=== PATIENT | female | born 1970 | race Caucasian/White ===

== ENCOUNTER → 2020-01-18 15:43 | Outpatient (BNVA) | payer BC, SELFPAY | PROVIDERS: Family Provider Nurse Practitioner Family; PCP Nurse Practitioner Family; Visit Provider Nurse Practitioner Family | DX: M79.672 Pain in left foot (principal) | CPT/HCPCS: 73630 ==

== ENCOUNTER → 2020-03-16 08:46 | Outpatient (BNVA) | payer BC, SELFPAY | PROVIDERS: Family Provider Nurse Practitioner Family; PCP Nurse Practitioner Family; Referring Provider Nurse Practitioner Family; Visit Provider Podiatrist Foot & Ankle Surgery | DX: S92.512A Displaced fracture of proximal phalanx of left lesser toe(s), initial encounter for closed fracture (principal) | CPT/HCPCS: 73630 ==

== ENCOUNTER 2020-04-14 08:26 | Outpatient (CLI) | payer BC, SELFPAY ==
--- NOTE | 2020-04-14 08:44 | CT_ITS ---
WS: [id number] CT CHEST WITHOUT INTRAVENOUS CONTRAST HISTORY: SOLITARY PULMONARY NODULE TECHNIQUE: Contiguous 5 mm axial imaging performed on the thorax. Coronal and sagittal reformats are submitted. All CT scans at [facility] use at least one of these dose optimization techniq ues: automated exposure control; mA and/or kV adjustment per patient size (includes targeted exams wh ere dose is matched to clinical indication); or iterative reconstruction. CONTRAST: None DLP: 902.14 mGy-cm. COMPARISON: 09/06/2019, 01/25/2019 and 11/29/2016 Lungs and central airway: Recently described LEFT lower lobe nodule has not changed significantly in size. Nodule now measures 5 mm on image 36 of series 3. There is been no progression since 09/06/2019 . There are additional calcified nodules and noncalcified nodules bilaterally. These additional nodul es have been stable since 11/29/2016. Pleura: Normal. No pleural effusion. Heart and pericardium: Normal size heart. No pericardial effusion. Mediastinum and francesca: Very large dense calcified RIGHT paratracheal lymph nodes. No enlarging or new lymph nodes. Vessels: Normal size aortic and pulmonary artery. No coronary artery calcifications. Chest wall and lower neck: No soft tissue masses. Upper abdomen: Prior cholecystectomy. Splenic granulomata. No adrenal mass. Osseous structures: No destructive process. CT/CT chest wo con [id number] IMPRESSION: 1. Slight decrease in size of the new LEFT lower lobe pulmonary nodule describ ed on 09/06/2019 and now measuring 5 mm diameter. This nodule was also probably present on 11/29/2016. No additional workup necessary. 2. Long-term stability of benign noncalcified and calcified pulmonary nodules. 3. Benign large RIGHT paratracheal calcified lymph node. 4. Mild emphysema. 5. Prior cholecystectomy.
== END 2020-04-14 08:27 | disposition home or self-care (01) ==
LOC: RADWPI 08:29
PROVIDERS: Family Provider Nurse Practitioner Family; PCP Nurse Practitioner Family; Visit Provider Internal Medicine Pulmonary Disease
DX: R91.1 Solitary pulmonary nodule (principal); R91.8 Other nonspecific abnormal finding of lung field; J43.9 Emphysema, unspecified; Z90.49 Acquired absence of other specified parts of digestive tract
CPT/HCPCS: 71250

== ENCOUNTER → 2021-02-12 15:12 | Outpatient (BNVA) | payer BC, SELFPAY | PROVIDERS: Family Provider Nurse Practitioner Family; PCP Nurse Practitioner Family; Visit Provider Nurse Practitioner Family | DX: S46.912A Strain of unspecified muscle, fascia and tendon at shoulder and upper arm level, left arm, initial encounter (principal); M62.838 Other muscle spasm; X58.XXXA Exposure to other specified factors, initial encounter | CPT/HCPCS: 73030 ==

== ENCOUNTER → 2021-02-13 17:09 | Outpatient (BNVA) | payer BC, SELFPAY | PROVIDERS: Family Provider Nurse Practitioner Family; PCP Nurse Practitioner Family; Visit Provider Nurse Practitioner Family | DX: F41.9 Anxiety disorder, unspecified (principal); F32.9 Major depressive disorder, single episode, unspecified; I10 Essential (primary) hypertension; F41.8 Other specified anxiety disorders; M62.838 Other muscle spasm; S46.912A Strain of unspecified muscle, fascia and tendon at shoulder and upper arm level, left arm, initial encounter; Z13.6 Encounter for screening for cardiovascular disorders; E55.9 Vitamin D deficiency, unspecified; Z79.899 Other long term (current) drug therapy | CPT/HCPCS: 36415; 80053; 80061; 81003; 82306; 83036; 84443; 85025 ==

== ENCOUNTER 2021-06-01 08:08 | Inpatient (IN) | payer BC, SELFPAY ==
[2021-06-01 08:13] VITALS: BP 117/78; PULSE 94; RESP 16; TEMP 36.7; O2SAT 95; BMI 30.4
--- NOTE | 2021-06-01 08:13 | CT_ITS ---
WS: [id number] CT ABDOMEN AND PELVIS WITH CONTRAST HISTORY: Constipation with bright red blood. TECHNIQUE: Imaging performed of the abdomen and pelvis with IV contrast. Single phase imaging of the abdomen. Coronal and sagittal reformats are submitted. All CT scans at [facility] use at least one of these dose optimization techniques: automated exposure control; mA and/or kV adjustment per patient size (includes targeted exams where dose is matched to clinical indication); or iterativ e reconstruction. IV CONTRAST: Omnipaque 300; 95 mL IV. Oral contrast: No DLP: 1732.61 mGy.cm COMPARISON: 02/13/2009 Lower thorax: Stable nodules in the LEFT lower lung has been previously described. Normal heart size. Moderate size hiatal hernia. Liver/biliary system: Liver is elongated which is probably a Willa's lobe. No mass identified. There is a obstructive thrombosis in the posterior RIGHT portal vein. Thrombus begins in the proximal por heidi vein and extends to the periphery of the liver. Main portal vein is widely patent. Suspect there is also small amount of thrombus in the more anterior segment of the RIGHT portal vein which is nonoc clusive. No liver infarct. Main portal vein appears patent. No thrombus at the portal splenic conflue nce. Gallbladder: Status post cholecystectomy. Pancreas: Normal size pancreas and pancreatic duct. No adjacent inflammation. Spleen: Normal size with granulomata. Adrenal glands: Normal. Right kidney: Mild heterogeneity within the parenchyma with no adjacent inflammation or obstruction. May be phase of injection. Left kidney: Normal. Aorta: Mild atherosclerosis with no aneurysm. Lymphadenopathy: None. Free fluid: None. GI tract: Normal appendix. Mild constipation. Circumferential mucosal thickening and edema within the descending and sigmoid colon. No significant diverticular disease. Abdominal wall: Unremarkable abdominal wall. No hernia. Pelvis: Prior hysterectomy. No free fluid. Urinary bladder is well distended. Calcification in the LE FT ovary measures 10 mm. Bones: L5 anterolisthesis by 5 mm and bilateral pars defects. CT/CT abdomen pelvis w con* [id number] IMPRESSION: 1. Acute RIGHT portal vein thrombosis with no liver infarct at this time. No e xtension to this splenic portal confluence noted. 2. Mucosal edema involving the descending and sigmoid colon. No perforation. N o convincing evidence for ischemia. There are no significant diverticula identi fied. 3. Consider portal vein thrombosis may be septic thrombophlebitis from the acu te colitis or inflammatory bowel disease. Consider also hypercoagulable state. Portal vein thrombosis can be seen with hepatocellular carcinoma/pancreatitis a nd cirrhosis. Notified Baron Cochran DO at 06/01/2021 9:32 AM.
[2021-06-01 08:20] VITALS: BP 127/79; PULSE 96; O2SAT 99
[2021-06-01] MEDS: sodium chloride 0.9% 1,000 ML 999 ML IV (08:38)
[2021-06-01 08:51] LABS: Basophils # 0.1 10^3/uL (0.0-0.1); Basophils % 0.5 %; Eosinophils # 0.1 10^3/uL (0.0-0.8); Hematocrit 44.3 % (37.0-47.0); Hemoglobin 14.5 g/dL (11.5-15.3); Lymphocytes # 2.1 10^3/uL (0.8-4.8); Lymphocytes % 16.2 %; Mean Corpuscular HGB Conc 32.7 g/dL (30.0-36.0); Mean Corpuscular Hemoglobin 29.2 pg (28.0-34.0); Mean Corpuscular Volume 89.1 fL (81-99); Mean Platelet Volume 10.5 fL (7.4-10.4); Monocytes # 0.7 10^3/uL (0.2-0.9); Monocytes % 5.7 %; Neutrophils # 9.68 10^3/uL (1.8-7.7); Neutrophils % 76.2 %; Nucleated Red Blood Cells % 0 %; Platelet Count 329 10^3/cmm (130-400); Red Blood Count 4.97 10^6/uL (4.1-5.3); Red Cell Distribution Width 13.1 % (12.1-15.1); White Blood Count 12.7 10^3/uL (4.0-10.0)
[2021-06-01 09:07] LABS: Lactic Sepsis W/Reflex 1.4 mmol/L (0.5-2.2)
[2021-06-01 09:08] LABS: Alanine Aminotransferase 11 U/L (0-33); Albumin Level 4.3 g/dL (3.5-5.2); Alkaline Phosphatase 142 IU/L (35-105); Anion Gap 16.1 (5-19); Aspartate Amino Transferase 11 U/L (0-32); Blood Urea Nitrogen 18 mg/dL (6-20); Calcium 9.2 mg/dL (8.5-10.5); Carbon Dioxide 26 mmol/L (22-29); Chloride 98 mmol/L (98-107); Globulin 2.9 g/dL (1.3-4.6); Glucose 105 mg/dL (65-115); Lipase 22 U/L (13-60); Osmolality Calculated 284 mOsm/kg (285-295); Potassium 4.1 mmol/L (3.5-5.1); Sodium 136 mmol/L (136-145); Total Bilirubin 0.3 mg/dL (0.15-1.2); Total Protein 7.2 g/dL (6.6-8.7)
--- NOTE | 2021-06-01 09:21 | ED_ITS ---
HPI - Abdominal Pain General: Chief Complaint: Abdominal Pain Stated Complaint: bowel problems S/P surgery Time Seen by Provider: 06/01/21 08:11 History of Present Illness: HPI narrative: 50-year-old female presents to the emergency room with complaints of infraumbilical abdominal pain that began overnight. She relates most of it to being constipated. She has been very constipated she taken something for it and had some rectal bleeding after having a large bowel movement. She is continue to try to get something to relieve constipation has had a little more bleeding from the rectum. She not previously had a colonoscopy no vomiting with any of these episodes. No fever sweats chills no dysuria urgency or frequency. MD elicited complaint: abdominal pain Pertinent past history: constipation Onset (ago): day(s) Pain Consistency: intermittent Location: Suprapubic Severity: mild Quality: cramping Radiation: none Migration to: no migration Exacerbating factors: bowel movement Relieving factors: nothing Associated Symptoms: Reports bloating, change in bowel habits, change in stool character and hematochezia; Denies anorexia, belching, chills, coffee ground emesis, constipation, GI cramping, diarrhea, dyspepsia, dysuria, excessive flatus, fever(s), heartburn, hematuria, hematemesis, fecal incontinence, loose stools, melena, nausea, poor appetite, syncope and vomiting Review of Systems Const: Denies: fever(s) or chills ENMT: Denies: throat pain, ear or mastoid pain, nasal discharge or nasal congestion Card: Denies: syncope Resp: Denies: dyspnea, productive cough or non-productive cough GI: Reports: bloating, change in bowel habits, change in stool character and hematochezia; Denies: nausea, vomiting, hematemesis, coffee ground emesis, heartburn, diarrhea, constipation, GI cramping, belching, excessive flatus, fecal incontinence or melena : Denies: dysuria or hematuria Skin/Breast: Denies: rash or pruritus PFS ED PFSH: Medical History Allergic sinusitis Anxiety and depression Breast cancer screening by mammogram COPD (chronic obstructive pulmonary disease) Essential hypertension H/O abnormal mammogram Hypertension screen Left shoulder strain Medication management Multiple lung nodules on CT CT 08/2019 OPINION:?? 1.? Enlarging left lower lobe nodule as described above and based on apparent patient risk factor, suggest CT CT follow-up in 3-6 months.? 2.? Stable lingular and additional left lower lobe nodules since 01/25/2019.? 3.? Chronic emphysema.? 4.? Remote granulomatous disease.? 5.? Prior cholecystectomy.? Muscle spasm Numbness and tingling in left arm Vitamin D deficiency Surgical History S/P cholecystectomy Social History Smoking and tobacco status: current every day smoker Second hand smoke exposure: No Smoking risk assessment/counseling performed?: No Alcohol intake: never Desire information about alcohol rehabilitation?: No Counseling given: No Desire information about substance/drug rehabilitation?: No Counseling given: No Physical Exam Const: COMMON NORMALS: no acute distress GENERAL APPEARANCE: cooperative and comfortable ORIENTATION/CONSCIOUSNESS: Yes awake, Yes oriented to person, Yes oriented to place and Yes oriented to time HENMT: COMMON NORMALS: normocephalic, atraumatic and hearing grossly normal b ilaterally HEAD & SCALP: normocephalic and atraumatic Neck/C-Spine: COMMON NORMALS: no JVD Resp: COMMON NORMALS: normal respiratory effort, No retractions, No use of accessory muscles and clear to auscultation bilaterally AUSCULTATION: clear to auscultation bilaterally Cardio: COMMON NORMALS: no JVD, regular rate, regular rhythm and No murmurs present (Cardio) RATE: regular rate RHYTHM: regular rhythm GI: COMMON NORMALS: No hepatosplenomegaly present AUSCULTATION: Yes normoactive bowel sounds PALPATION: Yes Tenderness to palpation present (GI) (infraumbilical), No Guarding due to palpation present (GI) and Yes No hepatosplenomegaly present Extremity: COMMON NORMALS: normal to inspection, capillary refill normal, no clubbing, cyanosis or edema, no calf tenderness and no pedal edema Neuro: SENSORIUM/ORIENTATION: Yes oriented to person, Yes oriented to place and Yes oriented to time Skin: COMMON NORMALS: no rashes or lesions noted GENERAL SKIN EXAM: no rashes or lesions noted Course Vital Signs: Vital signs: Vital Signs Temperature 98.0 F 06/01/21 08:13 Pulse Rate 96 06/01/21 08:20 Respiratory Rate 16 06/01/21 08:13 Blood Pressure 127/79 06/01/21 08:20 Pulse Oximetry 99 06/01/21 08:20 MDM - Abdominal Pain MDM Narrative: Medical decision making narrative: Colitis of portal vein thrombosis discussed Dr. Rosario from Dr. James will start her on heparin Cipro and Flagyl and observe for bleeding GI rest IV fluid support pain control and antiemetics. Dr. Rosario to consult. Lab Data: Labs: Lab Results 06/01/21 06/01/21 06/01/21 Range/Units 08:42 08:42 08:42 WBC 12.7 H (4.0-10.0) 10^3/ uL RBC 4.97 (4.1-5.3) 10^6/u L Hgb 14.5 (11.5-15.3) g/dL Hct 44.3 (37.0-47.0) % MCV 89.1 (81-99) fL MCH 29.2 (28.0-34.0) pg MCHC 32.7 (30.0-36.0) g/dL RDW 13.1 (12.1-15.1) % Plt Count 329 (130-400) 10^3/c mm MPV 10.5 H (7.4-10.4) fL Neut % (Auto) 76.2 % Lymph % (Auto) 16.2 % Carroll % (Auto) 5.7 % Eos % (Auto) 1.0 % Baso % (Auto) 0.5 % Neut # (Auto) 9.68 H (1.8-7.7) 10^3/u L Lymph # (Auto) 2.1 (0.8-4.8) 10^3/u L Carroll # (Auto) 0.7 (0.2-0.9) 10^3/u L Eos # (Auto) 0.1 (0.0-0.8) 10^3/u L Baso # (Auto) 0.1 (0.0-0.1) 10^3/u L Nucleated RBC % (a uto) 0 % Nucleated RBCs # 0.0 /100WBC Sodium 136 (136-145) mmol/L Potassium 4.1 (3.5-5.1) mmol/L Chloride 98 (98-107) mmol/L Carbon Dioxide 26 (22-29) mmol/L Anion Gap 16.1 (5-19) BUN 18 (6-20) mg/dL Creatinine 0.9 (0.5-0.9) mg/dL GFR Calculation 66.0 L (90-130) mL/min Glucose 105 (65-115) mg/dL Calculated Osmolal ity 284 L (285-295) mOsm/k g Lactic Acid 1.4 (0.5-2.2) mmol/L Calcium 9.2 (8.5-10.5) mg/dL Total Bilirubin 0.3 (0.15-1.2) mg/dL AST 11 (0-32) U/L ALT 11 (0-33) U/L Alkaline Phosphata se 142 H (35-105) IU/L Total Protein 7.2 (6.6-8.7) g/dL Albumin 4.3 (3.5-5.2) g/dL Globulin 2.9 (1.3-4.6) g/dL Lipase 22 (13-60) U/L Discharge Plan Discharge Patient Disposition: Admitted As Inpatient Clinical Impression: Colitis, Portal vein thrombosis Condition: Stable Coding Level of Care Code ED Splitting Machine Operator for Kimberly Fwd Exam Comprehensive
[2021-06-01] MEDS: ciprofloxacin 400 MG/200 ML PREMIX 200 MG IV (10:58)
--- NOTE | 2021-06-01 11:48 | P.HP_ITS ---
Providers/Chief Complaint Primary Care Provider: MOODY Mckinney Chief Complaint: bowel problems S/P surgery History of Present Illness Padmini Rothman is a 50 year old female who presents to the emergency department with complaints of abdominal discomfort. She reports late Friday night she started having some abdominal discomfort underneath her umbilicus. She thought she was constipated, as she had a hard stool and then some subsequent bleeding. She proceeded to give herself suppositories/enemas and Metamucil and had some watery diarrhea. The pain persisted, as did a slight amount of blood on occasion. She has not had no fever or chills. The pain is somewhat better than it was on Friday. She has had no vomiting. She denies any prior history of clotting disorder. While in the emergency department she was diagnosed with a portal vein thrombosis, and concern for colitis. She received ciprofloxacin, Flagyl, IV fluids, surgical consultation. A heparin drip was also initiated. Patient denies any history of Covid, exposure to Covid or vaccination for Covid. Review of Systems General: Reports: 10 or more systems reviewed and unremarkable except in HPI and below Const: Denies: fever(s) or chills Eyes: Denies: change in vision ENMT: Denies: throat pain Card: Denies: chest pain Resp: Denies: dyspnea GI: Reports: abdominal pain and hematochezia; Denies: vomiting : Denies: flank pain Musc: Denies: neck pain Skin/Breast: Denies: rash Neuro: Denies: headache(s) Psych: Reports: anxiety Endo: Denies: polyuria Aakash/Lymph: Denies: easy bruising All/Imm: Denies: urticaria Medications/Allergies Home Medications Medication Instructions Recorded Confirmed Last Taken Type fluticasone propionate 50 1 spray INTRANASAL DAILY PRN 30 02/12/21 06/01/21 Unknown Rx mcg/actuation nasal Days #15.8 ml spray,suspension hydroxyzine HCl 25 mg tablet 25 mg PO TID PRN #90 tab 02/12/21 06/01/21 Unknown Rx furosemide 80 mg tablet See Rx Instructions .ROUTE 05/02/21 06/01/21 Unknown Rx .COMPLEX #30 tab phentermine 37.5 mg tablet 37.5 mg PO DAILY 30 Days #30 tab 05/02/21 06/01/21 05/30/21 Rx bupropion HCl 200 mg PO BID 06/01/21 06/01/21 06/01/21 History cyclobenzaprine 10 mg PO BEDTIME PRN 06/01/21 06/01/21 Unknown History lisinopril 20 mg PO DAILY 06/01/21 06/01/21 06/01/21 History Allergies Allergy/AdvReac Type Severity Reaction Status Date / Time celecoxib [From Celebrex] Allergy unknown Verified 05/02/21 14:14 tramadol Allergy unknown Verified 05/02/21 14:14 PFSH Acute PFSH: Medical History (Updated 06/01/21 @ 13:49 by Velasquez Falcon MD) Allergic sinusitis Anxiety and depression Breast cancer screening by mammogram COPD (chronic obstructive pulmonary disease) Essential hypertension H/O abnormal mammogram Hypertension screen Left shoulder strain Medication management Multiple lung nodules on CT CT 08/2019 OPINION:?? 1.? Enlarging left lower lobe nodule as described above and based on apparent patient risk factor, suggest CT CT follow-up in 3-6 months.? 2.? Stable lingular and additional left lower lobe nodules since 01/25/2019.? 3.? Chronic emphysema.? 4.? Remote granulomatous disease.? 5.? Prior cholecystectomy.? Muscle spasm Numbness and tingling in left arm Obesity Vitamin D deficiency Surgical History (Updated 06/01/21 @ 13:41 by Velasquez Falcon MD) History of hysterectomy History of knee surgery S/P cholecystectomy Family History (Updated 06/01/21 @ 13:42 by Velasquez Falcon MD) Other CAD (coronary artery disease) Diabetes Social History (Updated 06/01/21 @ 13:42 by Velasquez Falcon MD) Smoking and tobacco status: current every day smoker Second hand smoke exposure: No Smoking risk assessment/counseling performed?: No Alcohol intake: current Alcohol intake frequency: 0-2 Drinks per Day Desire information about alcohol rehabilitation?: No Counseling given: No Desire information about substance/drug rehabilitation?: No Counseling given: No Vitals/I&O/Wt Last Vital Signs Temp 98.0 F 06/01/21 08:13 Pulse 96 06/01/21 08:20 Resp 16 06/01/21 08:13 BP 127/79 06/01/21 08:20 Pulse Ox 99 06/01/21 08:20 Weight last 48 hrs Weight 83.007 kg Physical Exam Narrative: EXAM NARRATIVE: General exam is a white female, complaining of abdominal discomfort HEENT: Pupils equally round. Oropharynx clear. Neck is supple no lymphadenopathy or thyromegaly Cardiovascular regular rate and rhythm without murmur Lungs clear no wheezing or crackles Abdomen demonstrates tenderness below her umbilicus bilaterally. No significant rebound is deferred Extremities no cyanosis clubbing or edema, cap refill brisk Skin intact, no rash Neuro no focal deficits Data : 06/01/21 08:42 06/01/21 08:42 Other data: Abdominal pelvis CT demonstrates right portal vein thrombosis with no liver infarct. Mucosal edema is noted descending and sigmoid: With no evidence for ischemia. Lactic acid 1.4, calcium 9.2, LFTs normal with exception of alk phos of 142. Lipase is 22 A&P Assessment and plan (1) Portal vein thrombosis: Initiate heparin drip Heparin being used instead of Lovenox secondary to patient's report of occasional blood in her stool. Should this increase greatly this will be a safer option. Should it not then other anticoagulation choices can be considered in the near future Work-up for thrombosis with multiple studies Check chest x-ray If any significant increase in discomfort would consider repeating lactate Status: Acute (2) Abdominal pain: Check urinalysis Continue Cipro and Flagyl for concern of colitis although changes could be secondary to suppositories and enemas patient gave in response for concern of constipation Status: Acute (3) Tobacco dependency: Encourage abstinence Status: Acute (4) Essential hypertension: Continue home medications Status: Acute Additional A&P Information Multiple other medical problems as outlined past medical history Full code Heparin will suffice for DVT prophylaxis. Attestations Medical Necessity Statement*: Will need greater than 2 midnight stay for evaluation of abdominal pain with portal vein thrombosis. Time Spent in Patient Care: Greater than 35 minutes Coding Level of Care Code Acute Offset Printer for Chg Fwd Diagnoses Portal vein thrombosis I81 Abdominal pain R10.9 Tobacco dependency F17.200 Essential hypertension I10
[2021-06-01] MEDS: heparin 5,000 unit/mL INJ 1 mL 4000 UNIT IVP (12:50)
[2021-06-01] MEDS: metroNIDAZOLE IV 500 MG/100 ML PREMIX 100 MG IV (12:54)
--- NOTE | 2021-06-01 13:43 | XR_ITS ---
WS: [id number] Portable AP upright chest, 06/01/2021 Clinical Data: portal vein thrombosis Comparison: None. Findings: No nodules, masses or effusions are seen. The heart is normal. The pulmonary vascularity is not increased. No pneumonia or pneumothorax is seen. There is a 5.1 cm calcified right tracheobronch ial lymph node. XR/XR chest 1V portable [id number] Impression: Negative chest.
--- NOTE | 2021-06-01 13:46 | ECG_ITS ---
[facility] Test Date: 2021-06-01 Pat Name: Padmini Rothman Department: Room: Gender: Female [employer]: : 1970 Requested By: Velasquez Nguyen Order Number: [id number] Davian MD: Jong Starkey M.D. Measurements Intervals [place] Rate: 85 P: 54 SC: 173 QRS: 38 QRSD: 91 T: 42 QT: 364 QTc: 434 Interpretive Statements SINUS RHYTHM No previous ECG available for comparison Electronically Signed On 06-03-2021 17:24:44 CDT by Jong Starkey M.D. [email or web address]
[2021-06-01 13:58] LABS: INR 1.02 (0.8-1.2)
[2021-06-01 14:31] LABS: Partial Thromboplastin Time 166.1 SECONDS (23.9-36.7)
--- NOTE | 2021-06-01 17:56 | P.CONIM_ITS ---
Providers/Reason For Consult Consulting Physician/Specialty*: General Surgery Dr. Rosario Reason for Consult*: Portal vein thrombosis/colitis Primary Care Provider: MOODY Mckinney History of Present Illness History of Present Illness Padmini Rothman is a 50 year old female lady with generalized abdominal pain. Patient states the pain started in the lower abdomen 2 days ago. Initially she thought she was constipated and gave suppositories and enemas and subsequently had watery diarrhea. Patient had bleeding per rectum. She states the bleeding has slowed down. No similar episodes in the past. She has never had a colonoscopy before. Since admission she is feeling a lot better and her bleeding has slowed down. Review of Systems General: Reports: 10 or more systems reviewed and unremarkable except in HPI and below Meds/Allergies Home Medications and Allergies Home Medications Medication Instructions Recorded Confirmed Last Taken Type fluticasone propionate 50 1 spray INTRANASAL DAILY PRN 30 02/12/21 06/01/21 Unknown Rx mcg/actuation nasal Days #15.8 ml spray,suspension hydroxyzine HCl 25 mg tablet 25 mg PO TID PRN #90 tab 02/12/21 06/01/21 Unknown Rx furosemide 80 mg tablet See Rx Instructions .ROUTE 05/02/21 06/01/21 Unknown Rx .COMPLEX #30 tab phentermine 37.5 mg tablet 37.5 mg PO DAILY 30 Days #30 tab 05/02/21 06/01/21 05/30/21 Rx bupropion HCl 200 mg PO BID 06/01/21 06/01/21 06/01/21 History cyclobenzaprine 10 mg PO BEDTIME PRN 06/01/21 06/01/21 Unknown History lisinopril 20 mg PO DAILY 06/01/21 06/01/21 06/01/21 History Allergies Allergy/AdvReac Type Severity Reaction Status Date / Time celecoxib [From Celebrex] Allergy unknown Verified 05/02/21 14:14 tramadol Allergy unknown Verified 05/02/21 14:14 PFSH Acute PFSH: Medical History Allergic sinusitis Anxiety and depression COPD (chronic obstructive pulmonary disease) Essential hypertension Left shoulder strain Vitamin D deficiency Surgical History History of hysterectomy History of knee surgery S/P cholecystectomy Family History Other CAD (coronary artery disease) Diabetes Social History Smoking and tobacco status: current every day smoker Second hand smoke exposure: No Smoking risk assessment/counseling performed?: No Alcohol intake: current Alcohol intake frequency: 0-2 Drinks per Day Desire information about alcohol rehabilitation?: No Counseling given: No Desire information about substance/drug rehabilitation?: No Counseling given: No Vitals/I&O/Wt Last Vital Signs Temp 98.0 F 06/01/21 08:13 Pulse 96 06/01/21 08:20 Resp 16 06/01/21 08:13 BP 127/79 06/01/21 08:20 Pulse Ox 99 06/01/21 08:20 Weight last 48 hrs Weight 183 lb Physical Exam Narrative: EXAM NARRATIVE: HEENT: Normocephalic Eye: Sclera /conjunctiva normal Abdomen: Soft to palpation nontender, nondistended Neurological: Oriented to place person and time Skin: Intact, no lesions appreciated on gross exam Data Micro: Micro: Microbiology 06/01/21 14:21 Blood Culture - Pr eliminary Blood SPECIMEN [facility] 06/01/21 14:10 Blood Culture - Pr eliminary Blood SPECIMEN [facility] A&P Assessment and plan (1) Colitis: CT abdomen pelvis revealed colitis involving the descending and sigmoid colon. No evidence of peritonitis on physical exam. Continue IV Cipro and Flagyl Stool cultures Status: Acute (2) Portal vein thrombosis: CT abdomen pelvis showed right portal vein thrombosis without evidence of ischemia most likely secondary to colitis. Patient does not have any history of clotting disorders in the past. WBC is 12.7 and lactate is normal Continue heparin drip discussed with the patient about risk of ischemia and need for surgical intervention if that were to occur but at this point we will continue with medical therapy Status: Acute Consult Attestations Medical Necessity Statement: As per attending physician Coding Level of Care Code Acute Picture Framer for g Fwd Diagnoses Colitis K52.9 Portal vein thrombosis I81
[2021-06-01 19:36] LABS: Urine Appearance Clear (CLEAR); Urine Color Straw (Yellow); pH Urine 7 (5-7)
[2021-06-01 19:37] LABS: Add Urine Culture? No; Bacteria Urine TRACE /hpf; Bilirubin Urine Neg (Negative); Blood Urine Neg (Negative); Glucose Urine UA Norm (Normal); Ketones Urine Negative (Negative); Leukocyte Esterase Urine Negative (Negative); Nitrate Urine Negative (Negative); Protein Urine Neg (Negative); Specific Gravity, Urine 1.005 (1.005-1.030); Squamous Epithelial Cell Urine 0-4 /hpf (0-5); Urobilinogen Urine Norm (Negative)
[2021-06-01 20:20] VITALS: BP 130/78; PULSE 81; RESP 16; TEMP 36.8; O2SAT 99
[2021-06-01 21:06] VITALS: BP 158/89; PULSE 79; RESP 20; TEMP 36.4; O2SAT 99
[2021-06-01 21:10] VITALS: BP 130/78; PULSE 81; RESP 16; TEMP 36.9; O2SAT 99
[2021-06-01] MEDS: buPROPion SR (12 HR) 100 mg Tablet 200 MG PO (21:45)
[2021-06-01] MEDS: sodium chloride 0.9% 1,000 ML 75 ML IV (21:46)
[2021-06-01 21:47] VITALS: RESP 20
[2021-06-01] MEDS: morphine 4 mg/mL SDV 1 mL 2 MG IVP (21:47)
[2021-06-01] MEDS: heparin 5,000 unit/mL INJ 1 mL IV (21:48)
[2021-06-01] MEDS: heparin drip 25,000 UNIT/500 ML PREMIX 23.24 UNIT IV (21:49)
[2021-06-01 22:02] LABS: Partial Thromboplastin Time 27.6 SECONDS (23.9-36.7)
[2021-06-01] MEDS: heparin drip 25,000 UNIT/500 ML PREMIX 24 UNIT IV (22:13)
[2021-06-01] MEDS: HYDROcodone-acetaminophen 5-325 mg Tablet 1 TAB PO (22:53)
[2021-06-02] VITALS: BP 127/81; PULSE 78; RESP 18; TEMP 36.5; O2SAT 98
[2021-06-02 03:36] VITALS: BP 111/63; PULSE 79; RESP 18; TEMP 36.7; O2SAT 96
[2021-06-02] MEDS: HYDROcodone-acetaminophen 5-325 mg Tablet 1 TAB PO ×2 (03:37→19:19)
[2021-06-02 04:17] LABS: Basophils % 0.3 %; Eosinophils # 0.2 10^3/uL (0.0-0.8); Eosinophils % 2.1 %; Hematocrit 41.1 % (37.0-47.0); Hemoglobin 13.1 g/dL (11.5-15.3); Lymphocytes # 2.5 10^3/uL (0.8-4.8); Lymphocytes % 26.2 %; Mean Corpuscular HGB Conc 31.9 g/dL (30.0-36.0); Mean Corpuscular Volume 91.1 fL (81-99); Mean Platelet Volume 10.4 fL (7.4-10.4); Monocytes # 0.8 10^3/uL (0.2-0.9); Monocytes % 8.5 %; Neutrophils # 5.92 10^3/uL (1.8-7.7); Neutrophils % 62.5 %; Nucleated Red Blood Cells % 0 %; Platelet Count 243 10^3/cmm (130-400); Red Blood Count 4.51 10^6/uL (4.1-5.3); Red Cell Distribution Width 13.2 % (12.1-15.1); White Blood Count 9.5 10^3/uL (4.0-10.0)
[2021-06-02 04:37] LABS: Partial Thromboplastin Time 86.7 SECONDS (23.9-36.7)
[2021-06-02 04:40] LABS: Alanine Aminotransferase 10 U/L (0-33); Albumin Level 3.7 g/dL (3.5-5.2); Alkaline Phosphatase 121 IU/L (35-105); Aspartate Amino Transferase 11 U/L (0-32); Blood Urea Nitrogen 8 mg/dL (6-20); Calcium 8.6 mg/dL (8.5-10.5); Carbon Dioxide 25 mmol/L (22-29); Chloride 107 mmol/L (98-107); Creatinine Clr Calc Pharmacy 118.0329; Globulin 2.4 g/dL (1.3-4.6); Glomerular Filtration Rate 105.4 mL/min (90-130); Glucose 104 mg/dL (65-115); Osmolality Calculated 289 mOsm/kg (285-295); Sodium 140 mmol/L (136-145); Total Bilirubin 0.2 mg/dL (0.15-1.2); Total Protein 6.1 g/dL (6.6-8.7)
[2021-06-02 04:41] LABS: Lactate (Lactic Acid level) 0.9 mmol/L (0.5-2.2)
[2021-06-02 08:00] VITALS: BP 151/84; PULSE 78; RESP 18; TEMP 36.7; O2SAT 99
[2021-06-02] MEDS: lisinopril 20 mg Tablet PO (10:46)
[2021-06-02] MEDS: buPROPion SR (12 HR) 100 mg Tablet 200 MG PO ×2 (10:46→19:19)
[2021-06-02] MEDS: sodium chloride 0.9% 1,000 ML 75 ML IV (10:48)
[2021-06-02 12:00] VITALS: BP 136/82; PULSE 79; RESP 18; TEMP 36.6; O2SAT 98
[2021-06-02 12:23] LABS: Partial Thromboplastin Time 58.9 SECONDS (23.9-36.7)
--- NOTE | 2021-06-02 13:58 | PM.PN ---
Subjective Subjective: Interval history: 50-year-old female with a past medical history significant for anxiety, depression, chronic obstructive pulmonary disease, hypertension, pulmonary nodules, vitamin-D deficiency, morbid obesity who presented to the hospital with abdominal pain. Laboratory workup on arrival showed a WBC of 12.7, hemoglobin 14.5, hematocrit of 44.3 and platelet count of 329, sodium of 136, potassium 4.1, chloride 98, bicarb 26, BUN 18 and creatinine of 0.9. Lactic acid of 1.4, calcium IX 0.2, LFTs within normal limits and lipase of 22. Imaging studies included a CT abdomen pelvis which demonstrated the right portal vein thrombosis.Patient was started on IV heparin in addition to ciprofloxacin and Flagyl. Antibiotics were started due to colitis of descending and sigmoid colon. General surgery was consulted however no surgical plan was noted at this time. 06/02/2021 Patient was feeling much better. Noted mild abdominal discomfort however this had improved. No fever, chills, nausea vomiting. Medications: Reviewed: Yes Vitals/I&O/Wt Last Vital Signs Temp 97.8 F 06/02/21 12:00 Pulse 79 06/02/21 12:00 Resp 18 06/02/21 12:00 BP 136/82 06/02/21 12:00 Pulse Ox 98 06/02/21 12:00 06/01/21 06/02/21 06/02/21 22:59 06:59 14:59 Intake Total 1300 / 1300 186.8 / 1486.8 977.5 / 977.5 Output Total 0 / 0 Balance 1300 / 1300 186.8 / 1486.8 977.5 / 977.5 Weight last 48 hrs Weight 83.007 kg Physical Exam Narrative: EXAM NARRATIVE: General- Alert awake and oriented, no apparent distress HEENT -grossly unremarkable CVS- regular rate rhythm Chest- non labored respiration Abdomen- very mild tenderness to deep palpation in right side, no guarding Extremities- no lower extremity edema Data : 06/02/21 04:00 06/02/21 04:00 Micro: Microbiology 06/01/21 14:21 Blood Culture - Preliminary Blood SPECIMEN COLLECTED 06/01/21 14:10 Blood Culture - Preliminary Blood SPECIMEN COLLECTED A&P Assessment and plan (1) Colitis: General surgery consulted Ciprofloxacin Flagyl No surgical plan Pain control Status: Acute (2) Portal vein thrombosis: Continue IV heparin drip Coagulation workup as outpatient Monitor LFTs Bleeding precaution CBC daily Will likely transition to Eliquis versus Coumadin Status: Acute Attestations Medical Necessity Statement*: Will require further hospitalizationFor management of colitis on IV antibiotics Time Spent in Patient Care: Greater than 35 minutes (>than 50% of time spent in counselling and/or direct pt care on unit). Coding Level of Care Code Acute Geosciences Professor for Kimberly Gillilandd Diagnoses Colitis K52.9 Portal vein thrombosis I81
--- NOTE | 2021-06-02 14:06 | P.PN_ITS ---
Subjective Subjective: Interval history: Patient denies significant abdominal pain, no nausea or vomiting. No further BMs. She had severe pain last night but that has since resolved Vitals/I&O/Wt Last Vital Signs Temp 97.8 F 06/02/21 12:00 Pulse 79 06/02/21 12:00 Resp 18 06/02/21 12:00 BP 136/82 06/02/21 12:00 Pulse Ox 98 06/02/21 12:00 06/01/21 06/02/21 06/02/21 22:59 06:59 14:59 Intake Total 1300 / 1486.8 186.8 / 1486.8 977.5 / 977.5 Output Total 0 / 0 Balance 1300 / 1486.8 186.8 / 1486.8 977.5 / 977.5 Weight last 48 hrs Weight 183 lb Physical Exam Narrative: EXAM NARRATIVE: Abdomen: Soft, nondistended, nontender Data : 06/02/21 04:00 06/02/21 04:00 Micro: Microbiology 06/01/21 14:21 Blood Culture - Preliminary Blood SPECIMEN COLLECTED 06/01/21 14:10 Blood Culture - Preliminary Blood SPECIMEN COLLECTED A&P Assessment and plan (1) Colitis: CT abdomen pelvis revealed colitis involving the descending and sigmoid colon. No evidence of peritonitis on physical exam. Continue IV Cipro and Flagyl Stool cultures still not performed as patient did not have any bowel movements Status: Acute (2) Portal vein thrombosis: CT abdomen pelvis showed right portal vein thrombosis without evidence of ischemia most likely secondary to colitis. Patient does not have any history of clotting disorders in the past. WBC is down to 9.5 and lactate was 0.9 Continue heparin drip, transition to oral anticoagulation with potential discharge tomorrow Status: Acute Attestations Medical Necessity Statement*: As per primary Coding Level of Care Code Acute Dough Mixer Operator for [facility] Babatunde Diagnoses Colitis K52.9 Portal vein thrombosis I81
[2021-06-02 15:40] VITALS: BP 133/82; PULSE 72; RESP 17; TEMP 36.8; O2SAT 99
[2021-06-02 19:58] VITALS: BP 168/90; PULSE 68; RESP 17; TEMP 36.8; O2SAT 100
[2021-06-02 20:03] LABS: Partial Thromboplastin Time 39.3 SECONDS (23.9-36.7)
[2021-06-02] MEDS: heparin 5,000 unit/mL INJ 1 mL IV (21:03)
[2021-06-02] MEDS: heparin drip 25,000 UNIT/500 ML PREMIX 24 UNIT IV (23:10)
[2021-06-02] MEDS: metroNIDAZOLE IV 500 MG/100 ML PREMIX 100 MG IV (23:12)
[2021-06-03] VITALS: BP 148/90; PULSE 71; RESP 18; TEMP 36.6; O2SAT 98
[2021-06-03] MEDS: ciprofloxacin 400 MG/200 ML PREMIX 200 MG IV ×2 (00:13→10:11)
[2021-06-03] MEDS: sodium chloride 0.9% 1,000 ML 75 ML IV ×2 (00:13→13:12)
[2021-06-03 02:42] LABS: Basophils % 0.5 %; Eosinophils # 0.2 10^3/uL (0.0-0.8); Eosinophils % 1.9 %; Hemoglobin 12.9 g/dL (11.5-15.3); Lymphocytes # 2.2 10^3/uL (0.8-4.8); Lymphocytes % 28.7 %; Mean Corpuscular HGB Conc 31.5 g/dL (30.0-36.0); Mean Corpuscular Hemoglobin 29.1 pg (28.0-34.0); Mean Corpuscular Volume 92.6 fL (81-99); Mean Platelet Volume 10.8 fL (7.4-10.4); Monocytes # 0.6 10^3/uL (0.2-0.9); Monocytes % 7.9 %; Neutrophils # 4.69 10^3/uL (1.8-7.7); Neutrophils % 60.5 %; Nucleated Red Blood Cells % 0 %; Platelet Count 246 10^3/cmm (130-400); Red Blood Count 4.43 10^6/uL (4.1-5.3); White Blood Count 7.8 10^3/uL (4.0-10.0)
[2021-06-03 03:02] LABS: Partial Thromboplastin Time 89.2 SECONDS (23.9-36.7)
[2021-06-03 03:04] LABS: Anion Gap 12.5 (5-19); Blood Urea Nitrogen 5 mg/dL (6-20); Calcium 8.7 mg/dL (8.5-10.5); Carbon Dioxide 24 mmol/L (22-29); Chloride 106 mmol/L (98-107); Creatinine Clr Calc Pharmacy 118.0329; Glomerular Filtration Rate 105.4 mL/min (90-130); Glucose 85 mg/dL (65-115); Osmolality Calculated 285 mOsm/kg (285-295); Potassium 3.5 mmol/L (3.5-5.1); Sodium 139 mmol/L (136-145)
[2021-06-03 04:00] VITALS: BP 153/97; PULSE 84; RESP 18; TEMP 36.7; O2SAT 100
[2021-06-03 08:00] VITALS: BP 163/91; PULSE 75; RESP 14; TEMP 36.9; O2SAT 100
[2021-06-03] MEDS: metroNIDAZOLE IV 500 MG/100 ML PREMIX 100 MG IV (09:56)
[2021-06-03 10:06] LABS: Partial Thromboplastin Time 57.1 SECONDS (23.9-36.7)
[2021-06-03] MEDS: buPROPion SR (12 HR) 100 mg Tablet 200 MG PO (10:17)
[2021-06-03] MEDS: lisinopril 20 mg Tablet PO (10:18)
--- NOTE | 2021-06-03 10:29 | P.PN_ITS ---
Subjective Subjective: Interval history: Patient denies any abdominal pain, nausea, vomiting, tolerating full liquid diet Vitals/I&O/Wt Last Vital Signs Temp 98.0 F 06/03/21 04:00 Pulse 84 06/03/21 04:00 Resp 18 06/03/21 04:00 BP 153/97 06/03/21 04:00 Pulse Ox 100 06/03/21 04:00 06/02/21 06/03/21 06/03/21 22:59 06:59 14:59 Intake Total 693.2 / 3430.7 1400 / 3430.7 Balance 693.2 / 3430.7 1400 / 3430.7 Physical Exam Narrative: EXAM NARRATIVE: Abdomen: Soft, nontender, nondistended Data : 06/03/21 02:14 06/03/21 02:14 Micro: Microbiology 06/01/21 14:21 Blood Culture - Preliminary Blood NEGATIVE TO DATE 06/01/21 14:10 Blood Culture - Preliminary Blood NEGATIVE TO DATE A&P Assessment and plan (1) Colitis: CT abdomen pelvis revealed colitis involving the descending and sigmoid colon. No evidence of peritonitis on physical exam. DC home on oral Cipro and Flagyl for 7 days Advance her to GI soft diet Status: Acute (2) Portal vein thrombosis: Patient will need to be on Pradaxa for 6 months She will need an ultrasound in 6 months to ensure recanalization of portal vein When she is off anticoagulation she will need a colonoscopy since she has never had a colonoscopy Status: Acute Attestations Medical Necessity Statement*: DC home today Coding Level of Care Code Acute Paratransit Driver for Kimberly Fine Diagnoses Colitis K52.9 Portal vein thrombosis I81
[2021-06-03 12:00] VITALS: BP 134/76; PULSE 83; RESP 16; TEMP 36.7; O2SAT 98
--- NOTE | 2021-06-03 14:15 | PM.DCS ---
Discharge Providers Date of Admission: 06/01/21 11:50 Date of Discharge: June 03, 2021 Attending Provider at Admission: Velasquez Falcon MD Attending Provider at Discharge: Art Elise Primary Care Provider: MOODY Mckinney Diagnoses at Discharge Discharge Diagnosis (1) Colitis: Status: Acute (2) Portal vein thrombosis: Status: Acute Reason for Visit Reason for Visit: bowel problems S/P surgery Hospital Course Hospital Course 50-year-old female with a past medical history significant for anxiety, depression, chronic obstructive pulmonary disease, hypertension, pulmonary nodules, vitamin-D deficiency, morbid obesity who presented to the hospital with abdominal pain. Laboratory workup on arrival showed a WBC of 12.7, hemoglobin 14.5, hematocrit of 44.3 and platelet count of 329, sodium of 136, potassium 4.1, chloride 98, bicarb 26, BUN 18 and creatinine of 0.9. Lactic acid of 1.4, calcium IX 0.2, LFTs within normal limits and lipase of 22. Imaging studies included a CT abdomen pelvis which demonstrated the right portal vein thrombosis.Patient was started on IV heparin in addition to ciprofloxacin and Flagyl. Antibiotics were started due to colitis of descending and sigmoid colon. General surgery was consulted.Patient did not require any surgical intervention. Patient was tolerating oral intake. Discussed anticoagulation with patient after which she opted for Coumadin. She was prescribed Lovenox to bridge. Follow-up INR in 2 days. Physical Exam Narrative: EXAM NARRATIVE: General- Alert awake and oriented, no apparent distress HEENT -grossly unremarkable CVS- regular rate rhythm Chest- non labored respiration Abdomen- Nontender, no guarding Extremities- no lower extremity edema Discharge Data Data Completed and Pending: Completed Studies During Hospitalization Category Date Time Status CT abdomen pelvis w con* [id number] Stat Cat Scan 06/01/21 08:13 Completed XR chest 1V lon ble [id number] Routine Exams 06/01/21 13:43 Completed Pending at discharge Category Date Time Status Anti-Cariolipin I gA AB Stat Lab 06/01/21 13:35 Received Antithrombin III Activity Routine Lab 06/01/21 13:35 Received Basic Metabolic P ana laura AM LABS Lab 06/04/21 04:00 Ordered Basic Metabolic P ana laura AM LABS Lab 06/05/21 04:00 Ordered Blood Culture Sta t Lab 06/01/21 14:21 Results Clostridioides Di fficile PCR Routin e Lab 06/01/21 18:02 Ordered Complete Blood Co unt w/Auto AM LABS Lab 06/04/21 04:00 Ordered Enteric Bacterial Panel by PCR Rout ine Lab 06/01/21 18:02 Ordered Enteric Parasite Panel by PCR Routi ne Lab 06/01/21 18:02 Ordered Factor 5 Leiden M utation Stat Lab 06/01/21 13:35 Received Immunochemical Fe rudi OCB Routine Lab 06/01/21 18:02 Ordered JAK2 V617 Cascadi ng Reflex Stat Lab 06/01/21 13:35 Received Lactoferrin Routi ne Lab 06/01/21 18:02 Ordered Lupus Inhibitor P ana laura Anticoag Stat Lab 06/01/21 13:35 Received PROTEIN C, ACTIVI TY Stat Lab 06/01/21 13:35 Received PROTEIN S, ACTIVI TY Stat Lab 06/01/21 13:35 Received PROTHROMBIN (FACT OR II) [id number] Stat Lab 06/01/21 13:35 Received PTT [Partial Thro mboplastin Time] T imed Lab 06/03/21 15:24 Ordered Platelet Count Q2 D Lab 06/05/21 04:00 Ordered Labs from last 24 hours 06/03/21 06/03/21 06/03/21 09:24 02:14 02:14 WBC RBC Hgb Hct MCV MCH MCHC RDW Plt Count MPV Neut % (Auto) Lymph % (Auto) Dawes % (Auto) Eos % (Auto) Baso % (Auto) Neut # (Auto) Lymph # (Auto) Dawes # (Auto) Eos # (Auto) Baso # (Auto) Nucleated RBC % (a uto) Nucleated RBCs # APTT 57.1 H 89.2 H D Sodium 139 Potassium 3.5 Chloride 106 Carbon Dioxide 24 Anion Gap 12.5 BUN 5 L Creatinine 0.6 GFR Calculation 105.4 Glucose 85 Calculated Osmolal ity 285 Calcium 8.7 06/03/21 06/02/21 02:14 19:45 WBC 7.8 RBC 4.43 Hgb 12.9 Hct 41.0 MCV 92.6 MCH 29.1 MCHC 31.5 RDW 13.0 Plt Count 246 MPV 10.8 H Neut % (Auto) 60.5 Lymph % (Auto) 28.7 Dawes % (Auto) 7.9 Eos % (Auto) 1.9 Baso % (Auto) 0.5 Neut # (Auto) 4.69 Lymph # (Auto) 2.2 Dawes # (Auto) 0.6 Eos # (Auto) 0.2 Baso # (Auto) 0.0 Nucleated RBC % (a uto) 0 Nucleated RBCs # 0.0 APTT 39.3 H Sodium Potassium Chloride Carbon Dioxide Anion Gap BUN Creatinine GFR Calculation Glucose Calculated Osmolal ity Calcium Vitals: Last Vital Signs Temp 98.1 F 06/03/21 12:00 Pulse 83 06/03/21 12:00 Resp 16 06/03/21 12:00 BP 134/76 06/03/21 12:00 Pulse Ox 98 06/03/21 12:00 Discharge Plan Discharge Patient Disposition: Home Condition: Stable Prescriptions: New Lovenox 80 mg/0.8 mL syringe 80 mg SUBCUT Q12H Qty: 8 RF: 0 warfarin 5 mg tablet 5 mg PO DAILY Qty: 30 RF: 0 Augmentin 875-125 mg tablet 1 tab PO BID Qty: 12 RF: 0 Continued fluticasone propionate [Allergy Relief (fluticasone)] 50 mcg/actuation spray,suspension 1 spray INTRANASAL DAILY PRN (Reason: allergy symptoms) 30 Days Qty: 15.8 RF: 5 hydroxyzine HCl 25 mg tablet 25 mg PO TID PRN (Reason: anxiety) Qty: 90 RF: 5 furosemide 80 mg tablet See Rx Instructions .ROUTE .COMPLEX Qty: 30 RF: 0 phentermine 37.5 mg tablet 37.5 mg PO DAILY 30 Days Qty: 30 RF: 0 cyclobenzaprine 10 mg tablet 10 mg PO BEDTIME PRN (Reason: Muscle Spasm) RF: 0 lisinopril 20 mg tablet 20 mg PO DAILY RF: 0 bupropion HCl 200 mg tablet sustained-release 12 hr 200 mg PO BID RF: 0 Discharge Orders: Discharge Order (Routine); Ordered 06/03/21 Ordered By: Art Elise Other Ambulatory Orders: Prothrombin Time INR (Routine) Timeframe: 2 Days Facility: [facility] - Location: Lab - Main Lab Ordered By: Art Elise Referrals: CADE Bean, SEED CORE OPERATOR [Primary Care Provider] - 1-3 days (Please call Friday to schedule an INR check in 2 days) Boy Rosario MD [Physician] - 6 Weeks (Please call Friday to schedule a follow up appointent. ) Discharge Diet: As Directed Discharge Activity: Increase activity as tolerated Patient Instructions: Warfarin (By mouth), Amoxicillin/Clavulanate Potassium (By mouth), Enoxaparin (Injection), Cigarette Smoking and Your Health (GEN), Venous Thromboembolism (GEN), Opioid Safety, Quitting Smoking, Subcutaneous Injection Discharge Attestations Time Spent in Discharge Care*: greater than 30 min Status at Discharge: Cognitive status at discharge: cognitively intact, Behavioral status at discharge: cooperative, Functional status at discharge: independent ambulation Overall status at discharge: patient is progressing back to baseline Quality Metrics Clinical Quality Measures During this hospital stay, did patient experience: None Coding Level of Care Code Acute Chg FW DC note Diagnoses Colitis K52.9 Portal vein thrombosis I81
[2021-06-03 15:05] VITALS: BP 134/76; PULSE 83; RESP 16; TEMP 36.7; O2SAT 98
--- NOTE | 2021-06-04 08:38 | PC.RESP ---
SMOKING CESSATION AND PULMONARY REHAB INFORMATION SENT TO PATIENT.
[2021-06-06 00:37] LABS: PROTEIN S, ACTIVITY 135 % normal (60-140)
[2021-06-06 03:27] LABS: Antithrombin III Activity 131 % normal (80-135)
[2021-06-06 05:08] LABS: Inhibitor Screen Reflex Weak Positive (Negative)
[2021-06-06 13:33] LABS: Anti-Cardiolipin IgA AB 3.7 APL-U/mL (<20.0)
[2021-06-09 04:17] LABS: PROTEIN C, ACTIVITY 191 % (70-180)
[2021-06-09 11:57] LABS: CALR Exon 9 Mutation NOT DETECTED (NOT DETECTED); CSF3R Exon 14/17 Mutation NOT DETECTED (NOT DETECTED); JAK2 Exon 12 Mutation NOT DETECTED (NOT DETECTED); JAK2 V617 Clinical Indication NG; JAK2 V617 Mutation NOT DETECTED (NOT DETECTED); JAK2 V617 Specimen Source NG; MPL Exon 12 Mutation NOT DETECTED (NOT DETECTED)
== END 2021-06-03 14:55 | disposition home or self-care (01) | DRG 391 ==
LOC: ER 11:53 → MEDSURG 19:54
PROVIDERS: Hospitalist; Admitting Provider Internal Medicine; Emergency Provider Family Medicine; PCP Nurse Practitioner Family; Visit Provider Hospitalist
DX: K52.9 Noninfective gastroenteritis and colitis, unspecified (principal); I81 Portal vein thrombosis; F41.8 Other specified anxiety disorders; J44.9 Chronic obstructive pulmonary disease, unspecified; I10 Essential (primary) hypertension; E66.01 Morbid (severe) obesity due to excess calories; Z68.30 Body mass index [BMI] 30.0-30.9, adult; F17.210 Nicotine dependence, cigarettes, uncomplicated; R91.8 Other nonspecific abnormal finding of lung field
CPT/HCPCS: 36415; 71045; 74177; 80048; 80053; 81001; 81241; 81270; 83605; 83690; 85025; 85210; 85300; 85303; 85306; 85610; 85613; 85730; 86147; 87040; 93005; 96365; 96367; 99285; J0744; J1644; J2270; J7030; Q9967; S0030

== ENCOUNTER → 2021-06-06 15:31 | Outpatient (BNVA) | payer SELFPAY | PROVIDERS: PCP Nurse Practitioner Family; Visit Provider Nurse Practitioner Family | DX: I81 Portal vein thrombosis (principal) | CPT/HCPCS: 85610 ==

== ENCOUNTER → 2021-06-11 16:37 | Outpatient (BNVA) | payer SELFPAY | PROVIDERS: PCP Nurse Practitioner Family; Visit Provider Nurse Practitioner Family | DX: I81 Portal vein thrombosis (principal); K52.9 Noninfective gastroenteritis and colitis, unspecified; R10.9 Unspecified abdominal pain; Z79.01 Long term (current) use of anticoagulants | CPT/HCPCS: 85610 ==

== ENCOUNTER → 2021-06-15 08:27 | Outpatient (BNVA) | payer SELFPAY | PROVIDERS: PCP Nurse Practitioner Family; Visit Provider Nurse Practitioner Family | DX: Z79.01 Long term (current) use of anticoagulants (principal) | CPT/HCPCS: 85610 ==

== ENCOUNTER 2021-06-18 10:51 | Emergency (ER) | payer BC, SELFPAY ==
[2021-06-18 11:23] VITALS: BP 111/78; PULSE 96; RESP 18; TEMP 36.8; O2SAT 98; BMI 29.9
--- NOTE | 2021-06-18 14:57 | PC.NURSE ---
PT ARRIVED TO ROOM AT 1450
[2021-06-18 15:00] VITALS: BP 133/91; PULSE 84; RESP 16; O2SAT 98
--- NOTE | 2021-06-18 15:02 | W.ED.EXTPRO ---
HPI - Extremity Problem General: Chief complaint: Extremity Problem,Nontraumatic Stated complaint: leg pain, swelling, sent by Dr. Bean Time Seen by Provider: 06/18/21 14:51 History of Present Illness: HPI Narrative: Patient has an area of the left leg lower aspect of of the leg upper part of the calf underneath her tattoo that is been tender for couple 3 days. Hurts to touch. Does not have any swelling in the area. Sent via [facility] to be evaluated patient currently on Coumadin for a liver blood clot. INR was 1.9 last time is on 8.5 mg Coumadin daily MD Complaint: extremity pain Onset (ago): day(s) Pain Consistency: constant Location: left and lower extremity Severity scale (1-10): 3 Quality: burning Associated symptoms: Reports no associated symptoms; Deny chest pain, fever(s) or rash Review of Systems Const: Denies: fever(s), chills or body aches Eyes: Denies: change in vision or blurry vision ENMT: Denies: throat pain or nasal congestion Card: Denies: chest pain or dyspnea on exertion Resp: Denies: dyspnea, productive cough or non-productive cough GI: Denies: abdominal pain, nausea or vomiting Musc: Denies: extremity pain Skin/Breast: Reports: other (Tenderness to skin left lower leg aspect); Denies: rash Neuro: Denies: headache(s) Psych: Denies: anxiety or depression Aakash/Lymph: Denies: easy bruising PFSH ED PFSH: Medical History (Updated 06/18/21 @ 15:04 by ) Abdominal pain Allergic sinusitis Anxiety and depression Chronic anticoagulation COPD (chronic obstructive pulmonary disease) Essential hypertension Left shoulder strain Swelling of left lower extremity Vitamin D deficiency Surgical History History of hysterectomy History of knee surgery S/P cholecystectomy Family History Other CAD (coronary artery disease) Diabetes Social History Smoking and tobacco status: current every day smoker Second hand smoke exposure: No Smoking risk assessment/counseling performed?: No Alcohol intake: current Alcohol intake frequency: 0-2 Drinks per Day Desire information about alcohol rehabilitation?: No Counseling given: No Desire information about substance/drug rehabilitation?: No Counseling given: No Physical Exam Const: COMMON NORMALS: no acute distress Extremity: COMMON NORMALS: normal to inspection and full ROM OTHER: Homans' sign negative left leg Skin: OTHER: Tenderness below tattoo on left leg. Possible probable superficial thrombophlebitis calf is not tender muscles not tender has good range of motion of that extremity Course Vital Signs: Vital signs: Vital Signs Temperature 98.2 F 06/18/21 11:23 Pulse Rate 96 06/18/21 11:23 Respiratory Rate 18 06/18/21 11:23 Blood Pressure 111/78 06/18/21 11:23 Pulse Oximetry 98 06/18/21 11:23 MDM - Extremity (Nontraumatic) MDM Narrative: Medical decision making narrative: Most likely a thrombophlebitis superficial versus reaction to her tattoo in her leg from new medication. She is to follow back up if no significant improvement. Creams were started to help with inflammation. Patient already on Augmentin. Is also taking Coumadin did not feel steroid to be appropriate would make her INR out of whack did encourage her to go ahead and upper Coumadin 9 mg a day from 8.5 because of her INR being below therapeutic range. Patient to get INR rechecked on . Discharge Plan Discharge Patient Disposition: Home Clinical Impression: Superficial thrombophlebitis Condition: Stable Prescriptions: New Brittany Arthritis Pain 1 % gel 2 g topical QID Qty: 100 RF: 0 hydrocortisone 1 % cream 1 applic topical DAILY PRN (Reason: skin irritation) Qty: 28.35 RF: 0 No Action fluticasone propionate [Allergy Relief (fluticasone)] 50 mcg/actuation spray,suspension 1 spray INTRANASAL DAILY PRN (Reason: allergy symptoms) 30 Days Qty: 15.8 RF: 5 hydroxyzine HCl 25 mg tablet 25 mg PO TID PRN (Reason: anxiety) Qty: 90 RF: 5 furosemide 80 mg tablet See Rx Instructions .ROUTE .COMPLEX Qty: 30 RF: 0 phentermine 37.5 mg tablet 37.5 mg PO DAILY 30 Days Qty: 30 RF: 0 Augmentin 875-125 mg tablet 1 tab PO BID 7 Days Qty: 20 RF: 0 hydrocodone-acetaminophen 5-325 mg tablet 1 tab PO Q8H PRN (Reason: pain) 5 Days Qty: 15 RF: 0 warfarin 1 mg tablet 1 mg PO DAILY 30 Days Qty: 30 RF: 0 warfarin 5 mg tablet 7.5 mg PO DAILY 30 Days Qty: 30 RF: 0 cyclobenzaprine 10 mg tablet 10 mg PO BEDTIME PRN (Reason: Muscle Spasm) RF: 0 lisinopril 20 mg tablet 20 mg PO DAILY RF: 0 bupropion HCl 200 mg tablet sustained-release 12 hr 200 mg PO BID RF: 0 Discharge Orders: Discharge ED (Routine); Ordered 06/18/21 Ordered By: Andrea Lord Referrals: CADE Bean, ENVIRONMENTAL COMPLIANCE INSPECTOR [Primary Care Provider] - Patient Instructions: Superficial Thrombophlebitis (ED) Activity Restrictions/Additional Instructions: Follow-up with medical provider as directed. Take medications as prescribed. Return to the ER or your medical provider if condition worsens. Please read and understand discharge instructions. If any questions ask please. Alternate you creams Voltaren 4 times a day can use hydrocortisone 1-2 times a day in between those creams to help with inflammation and the phlebitis area Coding Level of Care Code ED Price Lister for Kimberly Fine
== END 2021-06-18 15:15 | disposition home or self-care (01) ==
PROVIDERS: Emergency Provider Nurse Practitioner Family; PCP Nurse Practitioner Family
DX: I80.252 Phlebitis and thrombophlebitis of left calf muscular vein (principal); J44.9 Chronic obstructive pulmonary disease, unspecified; I10 Essential (primary) hypertension; Z79.01 Long term (current) use of anticoagulants; F17.200 Nicotine dependence, unspecified, uncomplicated
CPT/HCPCS: 85610; 99282

== ENCOUNTER → 2021-06-21 15:41 | Outpatient (BNVA) | payer SELFPAY | PROVIDERS: PCP Nurse Practitioner Family; Visit Provider Nurse Practitioner Family | DX: Z79.01 Long term (current) use of anticoagulants (principal) | CPT/HCPCS: 85610 ==

== ENCOUNTER → 2021-06-25 13:08 | Outpatient (BNVA) | payer SELFPAY | PROVIDERS: PCP Nurse Practitioner Family; Visit Provider Nurse Practitioner Family | DX: Z79.01 Long term (current) use of anticoagulants (principal) | CPT/HCPCS: 85610 ==

== ENCOUNTER 2021-07-26 10:46 | Emergency (ER) | payer BC, SELFPAY ==
--- NOTE | 2021-07-26 10:49 | CT_ITS ---
WS: [id number] CT ABDOMEN AND PELVIS WITH CONTRAST HISTORY: abdominal pain, nausea and diarrhea. TECHNIQUE: Imaging performed of the abdomen and pelvis with IV contrast. Single phase imaging of the abdomen. Coronal and sagittal reformats are submitted. All CT scans at [facility] use at [address] one of these dose optimization techniques: automated exposure control; mA and/or kV adjustment per patient size (includes targeted exams where dose is matched to clinical indication); or iterative re construction. IV CONTRAST: Omnipaque 300; 95 mL IV. Oral contrast: No DLP: 1707.32 mGy.cm COMPARISON: 06/01/2021 Lower thorax: Lung bases are clear. Heart is normal size. Small hiatal hernia. Liver/biliary system: Normal size liver. Mild central bile duct dilatation may be physiologic. Small caliber and partially obstructed RIGHT portal vein. This is not an acute thrombosis. Acute thrombosis was described on 06/01/2021. Gallbladder: Status post cholecystectomy. Pancreas: Normal size pancreas and pancreatic duct. No adjacent inflammation. Spleen: Normal size spleen. No mass or infarct. Adrenal glands: Normal. Right kidney: Normal. Left kidney: Normal. Aorta: Mild atherosclerosis with no aneurysm. Lymphadenopathy: None. Free fluid: None. GI tract: There is mild diffuse mucosal edema throughout the colon. There is also very mild hyperemia and prominence of several central small bowel loops. No obstruction pattern no ascites or pericoloni c inflammation. The appendix is normal. Abdominal wall: Unremarkable abdominal wall. No hernia. Pelvis: Prior hysterectomy. No free fluid or adenopathy. Calcification in the RIGHT adnexa associated with the ovary measures 10 mm and was present on 06/01/2021 Bones: Increase in the lumbar lordosis. L5 anterolisthesis by 5 mm and bilateral pars defects at L5. CT/CT abdomen pelvis w con* [id number] IMPRESSION: 1. Mild mucosal edema throughout the colon and a few mildly prominent small ana laura wel loops. Most consistent with gastroenteritis. 2. No ascites. 3. Prior cholecystectomy.
[2021-07-26 11:03] VITALS: BP 148/86; PULSE 97; RESP 18; TEMP 36.6; O2SAT 100; BMI 29.4
--- NOTE | 2021-07-26 11:17 | ED_ITS ---
HPI - Abdominal Pain General: Chief Complaint: Abdominal Pain Stated Complaint: Stomach Pain, Weakness Time Seen by Provider: 07/26/21 10:50 Source: patient Mode of arrival: ambulatory Limitations: no limitations History of Present Illness: HPI narrative: Patient is a 50-year-old female who presents to ED today along with her after they were referred here by CADE Bean at [facility] for complaints of abdominal pain. Patient states in early May she presented to the ED with complaints of abdominal pain and constipation. She was found to have a portal vein thrombosis and colitis. She was subsequently admitted to the hospital at that time. Patient was started on IV antibiotics as well as anticoagulation. She states she has followed up appropriately with Dr. Rosario. She states approximately 3 weeks ago they switched her Coumadin to Pradaxa. She states since that time she has had upper abdominal pain and diarrhea. She denies hematochezia or melena. She is not having any episodes of vomiting. She describes her upper abdominal pain as heartburn-like . She has been taking Prilosec without much relief. MD elicited complaint: abdominal pain Pertinent past history: other (colitis, portal vein thrombosis) Onset (ago): day(s) Pain Consistency: constant Location: Epigastric, LUQ and RUQ Associated Symptoms: Reports diarrhea and nausea; Denies chills, dysuria, fever(s), hematochezia, melena and vomiting Review of Systems Const: Denies: fever(s), chills, body aches, fatigue or malaise ENMT: Denies: throat pain or odynophagia Card: Denies: chest pain Resp: Denies: dyspnea GI: Reports: abdominal pain, nausea and diarrhea; Denies: vomiting, rectal swelling, hematochezia or melena : Denies: flank pain or dysuria Musc: Denies: neck pain or back pain Skin/Breast: Denies: rash Neuro: Denies: headache(s), numbness in extremities, weakness in extremities or sensory changes PFS ED PFSH: Medical History (Updated 07/26/21 @ 12:54 by DIANE Rodríguez) Abdominal pain Abdominal pain Allergic sinusitis Anxiety and depression Bilateral otitis media Chronic anticoagulation COPD (chronic obstructive pulmonary disease) Essential hypertension Left shoulder strain Otitis externa Swelling of left lower extremity Vitamin D deficiency Surgical History History of hysterectomy History of knee surgery S/P cholecystectomy Family History Other CAD (coronary artery disease) Diabetes Social History Smoking and tobacco status: current some day smoker Second hand smoke exposure: No Smoking risk assessment/counseling performed?: No Alcohol intake: current Alcohol intake frequency: 0-2 Drinks per Day Desire information about alcohol rehabilitation?: No Counseling given: No Desire information about substance/drug rehabilitation?: No Counseling given: No Physical Exam Const: COMMON NORMALS: no acute distress, average body habitus, patient oriented x3, no limitations, healthy appearing, alert and well nourished GENERAL APPEARANCE: cooperative ORIENTATION/CONSCIOUSNESS: Yes awake, Yes oriented to person, Yes oriented to place and Yes oriented to time HENMT: COMMON NORMALS: normocephalic and atraumatic HEAD & SCALP: normo cephalic and atraumatic Resp: COMMON NORMALS: normal respiratory effort and clear to auscultation bilaterally AUSCULTATION: clear to auscultation bilaterally Cardio: COMMON NORMALS: regular rate and regular rhythm RATE: regular rate RHYTHM: regular rhythm GI: COMMON NORMALS: Normal to inspection, nondistended, normoactive bowel sounds present, Soft to palpation, No hepatosplenomegaly present and no masses PALPATION: Yes Soft to palpation, Yes Tenderness to palpation present (GI) (throughout upper abdomen) and Yes No hepatosplenomegaly present Neuro: COMMON NORMALS: patient oriented x3 SENSORIUM/ORIENTATION: Yes alert, Yes oriented to person, Yes oriented to place and Yes oriented to time Skin: COMMON NORMALS: no rashes or lesions noted GENERAL SKIN EXAM: no rashes or lesions noted Course Consultations: Consultation #1: Dr. Rosario-recommends discontinuing the Pradaxa and starting patient back on her Warfarin and having INR checked Friday with PCP Vital Signs: Vital signs: Vital Signs Temperature 97.9 F 07/26/21 11:03 Pulse Rate 104 H 07/26/21 12:13 Respiratory Rate 18 07/26/21 12:13 Blood Pressure 121/89 07/26/21 12:13 Pulse Oximetry 98 07/26/21 12:13 MDM - Abdominal Pain MDM Narrative: Medical decision making narrative: Patient here with upper abdominal pain and diarrhea that she states began after starting Pradaxa approximately 3 weeks ago. She is not complaining of bloody or dark stools. She has not had any vomiting. Vital signs are stable. Labs are non-concerning. CT scan shows possibly some mild gastroenteritis but no other acute findings. Portal vein thrombosis still present. Pradaxa can have fairly significant GI side effects. Spoke to Dr. Rosario who recommend switching her back to her Coumadin. No bridging necessary. Patient states she did well while on the Coumadin-she just did not like the restrictions in diet but states she is willing to tolerate this if it will eliminate current symptoms. When she was on the Coumadin she required 9 mg daily to receive therapeutic INR. We will start her on 7.5 mg and have her INR checked on Friday at the clinic in [place]. Strict return to ED precautions given. Lab Data: Labs: Lab Results 07/26/21 07/26/21 Range/Units 11:16 11:16 WBC 11.7 H (4.0-10.0) 10^3/ uL RBC 5.31 H (4.1-5.3) 10^6/u L Hgb 15.1 (11.5-15.3) g/dL Hct 45.9 (37.0-47.0) % MCV 86.4 (81-99) fl MCH 28.4 (28.0-34.0) pg MCHC 32.9 (30.0-36.0) g/dL RDW 13.2 (12.1-15.1) % Plt Count 418 H (130-400) 10^3/c mm MPV 10.2 (7.4-10.4) fL Neut % (Auto) 71.0 % Lymph % (Auto) 20.8 % Leon % (Auto) 6.0 % Eos % (Auto) 1.3 % Baso % (Auto) 0.6 % Neut # (Auto) 8.28 H (1.8-7.7) 10^3/u L Lymph # (Auto) 2.4 (0.8-4.8) 10^3/u L Leon # (Auto) 0.7 (0.2-0.9) 10^3/u L Eos # (Auto) 0.2 (0.0-0.8) 10^3/u L Baso # (Auto) 0.1 (0.0-0.1) 10^3/u L Nucleated RBC % (a uto) 0 % Nucleated RBCs # 0.0 /100WBC Sodium 136 (136-145) mmol/L Potassium 4.0 (3.5-5.1) mmol/L Chloride 98 (98-107) mmol/L Carbon Dioxide 25 (22-29) mmol/L Anion Gap 17.0 (5-19) BUN 10 (6-20) mg/dL Creatinine 0.6 (0.5-0.9) mg/dL GFR Calculation 105.4 (90-130) mL/min Glucose 99 (65-115) mg/dL Calculated Osmolal ity 281 L (285-295) mOsm/k g Calcium 9.8 (8.5-10.5) mg/dL Total Bilirubin 0.3 (0.15-1.2) mg/dL AST 17 (0-32) U/L ALT 18 (0-33) U/L Alkaline Phosphata se 154 H (35-105) IU/L Total Protein 7.6 (6.6-8.7) g/dL Albumin 4.6 (3.5-5.2) g/dL Globulin 3.0 (1.3-4.6) g/dL Lipase 23 (13-60) U/L Imaging Data ^: CT Abd/Pel: Radiologist's impression: [address] [id number] Scan ReportSigned Patient: Padmini Rothman #: [id number]: [id number]#:[id number]/Sex: 50 / FADM Date: 07/26/21Loc: ERRoom/Bed:Attending Dr: Ordering Provider/Ordering MD: Anne Kendall Date of Service: 07/26/21 Procedure(s): CT abdomen pelvis w con* [id number] Accession Number(s): [id number] Report Number: [id number] WS: [id number] CT ABDOMEN AND PELVIS WITH CONTRAST HISTORY: abdominal pain, nausea and diarrhea. TECHNIQUE: Imaging performed of the abdomen and pelvis with IV contrast. Single phase imaging of the abdomen. Coronal and sagittal reformats are submitted. All CT scans at [facility] use at least one of these dose optimization techniques: automated exposure control; mA and/or kV adjustment per patient size (includes targeted exams where dose is matched to clinical indication); or iterative reconstruction. IV CONTRAST: Omnipaque 300; 95 mL IV. Oral contrast: No DLP: 1707.32 mGy.cm COMPARISON: 06/01/2021 Lower thorax: Lung bases are clear. Heart is normal size. Small hiatal hernia. Liver/biliary system: Normal size liver. Mild central bile duct dilatation may be physiologic. Small caliber and partially obstructed RIGHT portal vein. This is not an acute thrombosis. Acute thrombosis was described on 06/01/2021. Gallbladder: Status post cholecystectomy. Pancreas: Normal size pancreas and pancreatic duct. No adjacent inflammation. Spleen: Normal size spleen. No mass or infarct. Adrenal glands: Normal. Right kidney: Normal. Left kidney: Normal. Aorta: Mild atherosclerosis with no aneurysm. Lymphadenopathy: None. Free fluid: None. GI tract: There is mild diffuse mucosal edema throughout the colon. There is also very mild hyperemia and prominence of several central small bowel loops. No obstruction pattern no ascites or pericolonic inflammation. The appendix is normal. Abdominal wall: Unremarkable abdominal wall. No hernia. Pelvis: Prior hysterectomy. No free fluid or adenopathy. Calcification in the RIGHT adnexa associated with the ovary measures 10 mm and was present on 06/01/2021 Bones: Increase in the lumbar lordosis. L5 anterolisthesis by 5 mm and bilateral pars defects at L5. CT/CT abdomen pelvis w con* [id number] IMPRESSION: 1. Mild mucosal edema throughout the colon and a few mildly prominent small bowel loops. Most consistent with gastroenteritis. 2. No ascites. 3. Prior cholecystectomy. Dictated By:Ramona Delgado DOSigned By:Ramona Delgado DOSigned Date/Time:07/26/21 1150DD/ 1144 Discharge Plan Discharge Patient Disposition: Home Clinical Impression: Portal vein thrombosis Adverse effect of anticoagulant Qualifiers: Encounter type: initial encounter Qualified Code(s): T45.515A - Adverse effect of anticoagulants, initial encounter Condition: Stable Prescriptions: New warfarin 7.5 mg tablet 7.5 mg PO DAILY Qty: 20 RF: 0 Discontinued Pradaxa 150 mg capsule 150 mg PO BID Qty: 180 RF: 1 No Action bupropion HCl 200 mg tablet sustained-release 12 hr 200 mg PO BID 30 Days Qty: 60 RF: 2 fluticasone propionate [Allergy Relief (fluticasone)] 50 mcg/actuation spray,suspension 1 spray INTRANASAL DAILY PRN (Reason: allergy symptoms) 30 Days Qty: 15.8 RF: 5 hydroxyzine HCl 25 mg tablet 25 mg PO TID PRN (Reason: anxiety) Qty: 90 RF: 5 furosemide 80 mg tablet See Rx Instructions .ROUTE .COMPLEX Qty: 30 RF: 0 hydrocodone-acetaminophen 5-325 mg tablet 1 tab PO Q8H PRN (Reason: pain) 5 Days Qty: 15 RF: 0 Prilosec OTC 20 mg Tablet,Delayed Release (Dr/Ec) 20 mg PO DAILY RF: 0 Voltaren Arthritis Pain 1 % gel 2 g topical QID PRN (Reason: Pain) RF: 0 lisinopril 20 mg tablet 20 mg PO QAM RF: 0 Discharge Orders: Discharge ED (Routine); Ordered 07/26/21 Ordered By: Anne Kendall Referrals: CADE Bean, [employer] PROFESSOR [Primary Care Provider] - Activity Restrictions/Additional Instructions: As we discussed discontinue your Pradaxa immediately and began warfarin tomorrow. You need to contact [place] clinic to have INR checked on Friday. You need to return to the emergency department for worsening abdominal pain, black or dark tarry stools, bloody stools, bloody vomit, fevers, or any other concerns you may have. Coding Level of Care Code ED Patient Relations Coordinator for Maddieg Fwd Exam Detailed
[2021-07-26 11:19] VITALS: BP 148/86; PULSE 93; RESP 15; O2SAT 98
[2021-07-26 11:25] LABS: Basophils # 0.1 10^3/uL (0.0-0.1); Basophils % 0.6 %; Eosinophils # 0.2 10^3/uL (0.0-0.8); Eosinophils % 1.3 %; Hematocrit 45.9 % (37.0-47.0); Hemoglobin 15.1 g/dL (11.5-15.3); Lymphocytes # 2.4 10^3/uL (0.8-4.8); Lymphocytes % 20.8 %; Mean Corpuscular HGB Conc 32.9 g/dL (30.0-36.0); Mean Corpuscular Hemoglobin 28.4 pg (28.0-34.0); Mean Corpuscular Volume 86.4 fl (81-99); Mean Platelet Volume 10.2 fL (7.4-10.4); Monocytes # 0.7 10^3/uL (0.2-0.9); Neutrophils # 8.28 10^3/uL (1.8-7.7); Nucleated Red Blood Cells % 0 %; Platelet Count 418 10^3/cmm (130-400); Red Blood Count 5.31 10^6/uL (4.1-5.3); Red Cell Distribution Width 13.2 % (12.1-15.1); White Blood Count 11.7 10^3/uL (4.0-10.0)
[2021-07-26] MEDS: iohexol 300 mg/mL 100 mL Btl IV (11:25)
[2021-07-26] MEDS: ondansetron 2 mg/ML SDV 2 mL 4 MG IVP (11:33)
[2021-07-26 11:44] LABS: Alanine Aminotransferase 18 U/L (0-33); Albumin Level 4.6 g/dL (3.5-5.2); Alkaline Phosphatase 154 IU/L (35-105); Aspartate Amino Transferase 17 U/L (0-32); Blood Urea Nitrogen 10 mg/dL (6-20); Calcium 9.8 mg/dL (8.5-10.5); Carbon Dioxide 25 mmol/L (22-29); Chloride 98 mmol/L (98-107); Glomerular Filtration Rate 105.4 mL/min (90-130); Glucose 99 mg/dL (65-115); Lipase 23 U/L (13-60); Osmolality Calculated 281 mOsm/kg (285-295); Sodium 136 mmol/L (136-145); Total Bilirubin 0.3 mg/dL (0.15-1.2); Total Protein 7.6 g/dL (6.6-8.7)
[2021-07-26] MEDS: lidocaine 2% viscous 15 ML, aluminum-mag hydrox-simethicon 30 ML, sucralfate oral liq 1 GM PO (12:11)
[2021-07-26 12:13] VITALS: BP 121/89; PULSE 104; RESP 18; O2SAT 98
[2021-07-26 12:29] LABS: Add Urine Microscopic? NO; Charge for UA Resulting for Rev
[2021-07-26 13:06] VITALS: BP 128/88; PULSE 97; RESP 16; TEMP 36.6; O2SAT 99
[2021-07-26 13:08] LABS: Specific Gravity, Urine 1.005 (1.005-1.030); Urine Appearance Clear (CLEAR); Urine Color Yellow (Yellow); pH Urine 6.5 (5-7)
[2021-07-26 13:09] LABS: Bilirubin Urine Neg (Negative); Blood Urine Neg (Negative); Glucose Urine UA Norm (Normal); Ketones Urine Negative (Negative); Leukocyte Esterase Urine Negative (Negative); Nitrate Urine Negative (Negative); Protein Urine Trace (Negative); Urobilinogen Urine Neg (Negative)
== END 2021-07-26 13:09 | disposition home or self-care (01) ==
PROVIDERS: Emergency Provider Physician Assistant; PCP Nurse Practitioner Family
DX: I81 Portal vein thrombosis (principal); T45.515A Adverse effect of anticoagulants, initial encounter; J44.9 Chronic obstructive pulmonary disease, unspecified; I10 Essential (primary) hypertension; F17.210 Nicotine dependence, cigarettes, uncomplicated
CPT/HCPCS: 74177; 80053; 81003; 83690; 85025; 96374; 99283; J2405; Q9967

== ENCOUNTER → 2021-07-31 11:11 | Outpatient (BNVA) | payer BC, SELFPAY | PROVIDERS: PCP Nurse Practitioner Family; Visit Provider Nurse Practitioner Family | DX: I81 Portal vein thrombosis (principal) | CPT/HCPCS: 85610 ==

== ENCOUNTER → 2021-08-06 08:06 | Outpatient (BNVA) | payer BC, SELFPAY | PROVIDERS: PCP Nurse Practitioner Family; Visit Provider Nurse Practitioner Family | DX: Z79.01 Long term (current) use of anticoagulants (principal) | CPT/HCPCS: 85610 ==

== ENCOUNTER → 2021-08-10 16:40 | Outpatient (BNVA) | payer BC, SELFPAY | PROVIDERS: PCP Nurse Practitioner Family; Visit Provider Nurse Practitioner Family | DX: Z79.01 Long term (current) use of anticoagulants (principal) | CPT/HCPCS: 85610 ==

== ENCOUNTER 2021-08-13 14:20 | Outpatient (CLI) | payer BC, SELFPAY ==
--- NOTE | 2021-08-13 18:32 | ONC CON_ITS ---
Dr. Lemus New Patient Note Patient: Padmini Rothman Unit #: [id number]: [id number] Dicatated By: Royal Lemus M.D.Date of Visit: Aug 13, 2021 Onc MED New Patient/Consult Referring Physician: Chan Bean NP Chief Complaint: Portal vein thrombosis. History of Present Illness: This is a 50 year-old woman with portal vein thrombosis. On 06/01/2021 she was admitted to the hospital after presenting to the emergency room with abdominal pain. Her laboratory studies showed a mildly elevated white blood cell count and mildly elevated alkaline phosphatase level. Contrast-enhanced CT of the abdomen/pelvis showed evidence of obstructive thrombosis involving the posterior right portal vein. Thrombus was noted to begin in the proximal portal vein and extend to the periphery of the liver. The main portal vein was noted to be widely patent. Also noted was mucosal edema involving the descending and sigmoid colon, consistent with colitis. She began on empiric antibiotic coverage with ciprofloxacin and metronidazole and she also began on anticoagulation with Lovenox. At discharge she continued her anticoagulation with warfarin along with a suitable overlap with Lovenox. Her evaluation in the hospital included a molecular panel for myeloproliferative disorders, which was negative, including the JAK2 V617F mutation. The prothrombin gene mutation and the factor V Leiden mutation were not detected. The Antithrombin III activity, protein C functional activity, and protein S activity were normal. An anticardiolipin antibody screen was negative. A lupus anticoagulant screen was also requested and that is still listed as pending . On 06/18/2021 she was treated in the emergency room for suspected superficial thrombophlebitis of the left leg. She did not have any imaging studies. On 07/26/2021 she was seen in the emergency room with recurrence of abdominal pain. Her comprehensive metabolic profile continued to show mildly elevated alkaline phosphatase. Her CT abdomen/pelvis continued to show mild mucosal edema throughout the colon with a few mildly prominent small bowel loops, most consistent with gastroenteritis. The right portal vein was noted to be small caliber and partially obstructed. At that point her anticoagulation was changed to dabigatran, but she tolerated it very poorly, and she has since then been back on warfarin. She has been feeling much better since she has been off of the dabigatran and back on warfarin, though she continues to complain that she is tired all the time. 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 She also complains that her legs hurt, particularly when she first gets up after she has been sitting for a while. Her ECOG score is 1. She has good appetite. She has no fever or night sweats. She has had no change in vision. She has not had sore mouth or throat. She does not complain of cough, shortness of breath, or chest pain. She has not been having nausea. She was having severe acid reflux and diarrhea when she was taking dabigatran, but those symptoms have improved significantly. Her bowel function is okay now, and she has not been aware of any blood in the stool. She has no complaints. She has no other joint or bone pain. She does not complain of headache or dizziness. She has no numbness/paresthesia or other focal neurologic symptoms. She is having significant anxiety, and she also has a history of depression. Past Medical History: Her medical history includes anxiety, chronic obstructive pulmonary disease, depression, gastroesophageal reflux disease, hypertension, and vitamin D deficiency. Past Surgical History: Her surgical/procedural history includes arthroscopic left knee surgery, cholecystectomy, and hysterectomy with unilateral right oophorectomy in 1996. Medications: buPROPion HCl ER (SR) 1 Tablet (of 200 mg) Tablet SR 12 HR Oral b.i.d., Furosemide 1 Tablet (of 80 mg) Oral daily PRN, Lisinopril 1 Tablet (of 20 mg) Oral daily, Omeprazole 1 Tablet (of 20 mg) Capsule Delayed Release Oral daily, Warfarin Sodium 1 Tablet (of 9.5 mg) Oral daily Allergies: Celecoxib and traMADol HCl. Social History: Ms. Rothman is . She has a history of smoking for 28 years, less than 1 pack of cigarettes daily. She quit smoking in 2016. She has just occasional alcohol use. Family History: Her mother had diabetes, congestive heart failure, and COPD. She at age 74. She does not know anything about her father. She has 3 sisters, one of whom has heart disease. She does not know about the other two. A maternal aunt was treated for breast cancer. There is no history of thromboembolism in the family. Review Of Symptoms: Constitutional - She has been feeling tired all the time, but she is still working. Her appetite has been okay, and her weight is stable. She has no fever, night sweats, or hot flashes. ECOG score is 1, Eyes - No change in vision, ENMT - No hearing loss or tinnitus. No sinus congestion/drainage. No mouth sores. No sore throat or difficulty swallowing, Hematologic/Lymphatic - No abnormal bruising or bleeding, Respiratory - No shortness of breath. No cough. No pleuritic pain or hemoptysis, Cardiovascular - No angina pain. No palpitations, Gastrointestinal - No nausea or vomiting. She has had acid reflux, not as severe since she stopped the Pradaxa. She also had pretty severe diarrhea, but that has improved as well. She has not been aware of any blood in the stool, Genitourinary (F) - No dysuria or hematuria. No urinary frequency. No urgency or incontinence, Musculoskeletal - She has been having pain in her legs, from her thighs down to her feet. The pain is particularly severe when she first gets up after she has been sitting for a while, Integumentary - No skin rash or other skin changes, Neurologic - No headache or dizziness. No numbness or tingling. No other focal neurologic symptoms, Psychiatric - She has anxiety. She has a history of depression. No insomnia. Vital Signs: Performed on Aug 13, 2021 16:10: 10, 2, 31.29 (HIGH), 1.93 sq.m, 65 in, 98 %, 84 /min, 18 /min, 130/92 mm(hg), 96.9 F (LOW), and 188 lbs (HIGH). Physical Examination: Constitutional - She appears to be in good general health, Eyes - Sclerae nonicteric. Conjunctivae clear, ENMT - No lesions noted in the oral cavity, Neck - No mass or thyromegaly, Hematologic/Lymphatic - No cervical, clavicular, or axillary adenopathy, Respiratory - Lungs are clear with good air movement bilaterally, Cardiovascular - Heart rhythm is regular. There is no murmur, gallop, or rub noted, Abdomen - Soft and non-tender. Liver and spleen are not enlarged. There is no abdominal mass or ascites noted and there is no inguinal adenopathy, Back/Spine - No spine or CVA tenderness noted, Extremities - No edema. Both calves feels soft. Dorsalis pedis pulses are palpable bilaterally, Integumentary - No rashes. No suspicious skin lesions noted, Neurologic - No focal neurologic deficits noted. Lab/Imaging: Her pro time on 08/10/2021 was therapeutic at 30.20 seconds with INR 2.60. Problem List: 1. Portal vein thrombosis. This may be idiopathic or may it be due to underlying inflammatory bowel disease. There is no clinical or laboratory evidence for underlying thrombophilia or myeloproliferative disorder. 2. There has been CT evidence for mucosal edema of the colon. She has had empiric antibiotic therapy. She has not yet had direct imaging or biopsy. 3. She is having significant pain in the lower extremities. A specific cause has not been determined. 4. Hypertension. 5. GERD. 6. Anxiety/depression. Problems Addressed with this Encounter and Plan: 1. Portal vein thrombosis. This may be idiopathic or may it be due to underlying inflammatory bowel disease. There was no clinical or laboratory evidence for underlying thrombophilia or myeloproliferative disorder. For now she will continue anticoagulation with warfarin, as she had very poor tolerance for dabigatran. Initially I will continue to monitor her protimes weekly and adjust warfarin as indicated. In the meantime, though, I will see if I get her set up for home monitoring through a warfarin clinic. 2. There has been CT evidence for mucosal edema of the colon. She has had empiric antibiotic therapy. She has not yet had direct imaging or biopsy. I will discuss this with Dr. Rosario. With the persistent CT findings, I think would it be best to stop her anticoagulation temporarily for EGD and colonoscopy. 3. She is having significant lower extremity pain. A specific cause has not been determined. Her symptoms and clinical findings are not suspicious for either thrombosis arterial insufficiency. Signed By: Royal Lemus M.D. <<Signature on File>>
== END 2021-08-13 14:21 | disposition home or self-care (01) ==
PROVIDERS: PCP Nurse Practitioner Family; Visit Provider Internal Medicine Medical Oncology
DX: I81 Portal vein thrombosis (principal); K58.9 Irritable bowel syndrome, unspecified; R60.0 Localized edema; I10 Essential (primary) hypertension; K21.9 Gastro-esophageal reflux disease without esophagitis; F41.9 Anxiety disorder, unspecified; F32.9 Major depressive disorder, single episode, unspecified; Z79.899 Other long term (current) drug therapy
CPT/HCPCS: 99205

== ENCOUNTER → 2021-08-16 13:53 | Outpatient (BNVA) | payer BC, SELFPAY | PROVIDERS: PCP Nurse Practitioner Family; Visit Provider Internal Medicine Medical Oncology | DX: Z79.01 Long term (current) use of anticoagulants (principal) | CPT/HCPCS: 85610 ==

== ENCOUNTER → 2021-08-22 11:53 | Outpatient (BNVA) | payer BC, SELFPAY | PROVIDERS: PCP Nurse Practitioner Family; Visit Provider Internal Medicine Medical Oncology | DX: I81 Portal vein thrombosis (principal); K52.9 Noninfective gastroenteritis and colitis, unspecified; Z79.01 Long term (current) use of anticoagulants; R10.84 Generalized abdominal pain | CPT/HCPCS: 80053; 82550; 85025; 85610; 85651; 86140 ==

== ENCOUNTER → 2021-08-28 14:06 | Outpatient (BNVA) | payer BC, SELFPAY | PROVIDERS: PCP Nurse Practitioner Family; Visit Provider Nurse Practitioner Family | DX: I81 Portal vein thrombosis (principal); K52.9 Noninfective gastroenteritis and colitis, unspecified; Z79.01 Long term (current) use of anticoagulants | CPT/HCPCS: 85610; 85651 ==

== ENCOUNTER → 2021-08-31 08:11 | Outpatient (BNVA) | payer BC, SELFPAY | PROVIDERS: PCP Nurse Practitioner Family; Visit Provider Internal Medicine Medical Oncology | DX: I81 Portal vein thrombosis (principal); K52.9 Noninfective gastroenteritis and colitis, unspecified; Z79.01 Long term (current) use of anticoagulants | CPT/HCPCS: 85651 ==

== ENCOUNTER → 2021-09-27 09:56 | Outpatient (BNVA) | payer BC, SELFPAY | PROVIDERS: PCP Nurse Practitioner Family; Visit Provider Surgery | DX: Z20.822 Contact with and (suspected) exposure to COVID-19 (principal); I81 Portal vein thrombosis | CPT/HCPCS: 85610; 87635 ==

== ENCOUNTER 2021-10-04 08:52 | Day surgery (SDC) | payer BC, SELFPAY ==
[2021-10-01 13:33] VITALS: BMI 31.6
--- NOTE | 2021-10-04 09:22 | ANES.PREANE2 ---
Pre-Anesthetic Assessment Pre-Anesthetic Assessment: Height/Weight: Height 1.65 m Weight 86.183 kg Preop Diagnosis: diagnostic Proposed Procedure: Operation Date: 10/04/21 10:45 Proposed Procedures p Colonoscopy 70596 r10.84(Not Applicable) - Boy Rosario MD Was Beta Kerri taken within 24 hours: N/A Was Clonidine taken within 24 hours: N/A Social: Social History: No tobacco Comment: Smoked today Exam: Pre-Anes Outpt Exam: alert, oriented x 3, clear to auscultation bilaterally and regular rate & rhythm Airway: Submandibular: WNL Cervical ROM: WNL MP: 2 Pulmonary: Pulmonary: COPD CV/HEM: CV/HEM: HTN Comments: Hx portal vein thrombosis. On warfarin anticoagulation. Hepatic: Comments: See CV above. GI: GI: GERD Neuropsych: Neuropsych: Anxiety and Depression Anesthetic Plan: ASA status: 2 Anesthesia: Anesthesia Evaluation and MAC Risk of > 500 ml blood loss (7ml/kg in children): No PFSH Anesthesia PFSH: Medical History Abdominal pain Abdominal pain Allergic sinusitis Anxiety and depression Bilateral otitis media Chronic anticoagulation COPD (chronic obstructive pulmonary disease) Essential hypertension Left shoulder strain Otitis externa Swelling of left lower extremity Vitamin D deficiency Surgical History History of hysterectomy History of knee surgery S/P cholecystectomy Family History Other CAD (coronary artery disease) Diabetes Social History Second hand smoke exposure: No Smoking risk assessment/counseling performed?: No Alcohol intake: current Alcohol intake frequency: 0-2 Drinks per Day Desire information about alcohol rehabilitation?: No Counseling given: No Desire information about substance/drug rehabilitation?: No Counseling given: No Data Anesthesia Cardiac Studies: No Data to Display
[2021-10-04 09:47] VITALS: BP 134/96; PULSE 76; RESP 18; TEMP 36.1; O2SAT 100
[2021-10-04] MEDS: sodium chloride 0.9% 1,000 ML 30 ML IV (09:52)
--- NOTE | 2021-10-04 11:08 | W.PM.OPSFHP ---
Same Day Surgery H&P Indication for Procedure/HPI DATE OF PROCEDURE: October 04, 2021 CHIEF COMPLAINT/INDICATIONFOR SURGICAL PROCEDURE: colonoscopy PREOP DIAGNOSIS: diagnostic PLANNED PROCEDRUE: Operation Date: 10/04/21 10:45 Proposed Procedures p Colonoscopy 30747 r10.84(Not Applicable) - Boy Rosario MD Medications/Allergies* Home Medications Medication Instructions Recorded Confirmed Type omeprazole magnesium [Prilosec OTC] 20 mg PO DAILY 07/26/21 10/04/21 History bupropion HCl [Wellbutrin SR] See Rx Instructions .ROUTE .COMPLEX 10/01/21 10/04/21 History warfarin 2 mg PO DAILY 10/01/21 10/04/21 History Allergies/Adverse Reactions Allergy/AdvReac Type Severity Reaction Status Date / Time celecoxib [From Celebrex] Allergy unknown Verified 10/04/21 09:43 tramadol Allergy unknown Verified 10/04/21 09:43 Current Medications: Generic Name Dose Route Start Last Admin Trade Name Freq PRN Reason Stop Dose Admin Sodium Chloride 1,000 mls @ 30 mls/hr 10/04/21 09:00 10/04/21 09:52 Sodium Chloride 0.9% IV 10/05/21 08:59 30 mls/hr .Q24H GIANNI Administration Pertinent History/Comorbid Conditions* Medical History (Updated 08/03/21 @ 00:02 by ) Abdominal pain Abdominal pain Allergic sinusitis Anxiety and depression Bilateral otitis media Chronic anticoagulation COPD (chronic obstructive pulmonary disease) Essential hypertension Left shoulder strain Otitis externa Swelling of left lower extremity Vitamin D deficiency Surgical History (Updated 06/01/21 @ 13:41 by Velasquez Falcon MD) History of hysterectomy History of knee surgery S/P cholecystectomy Family History (Updated 06/01/21 @ 13:42 by Velasquez Falcon MD) Diabetes CAD (coronary artery disease) Social History Second hand smoke exposure: No Smoking risk assessment/counseling performed?: No Alcohol intake: current Alcohol intake frequency: 0-2 Drinks per Day Desire information about alcohol rehabilitation?: No Counseling given: No Desire information about substance/drug rehabilitation?: No Counseling given: No Pertinent Exam Findings alert, oriented x 3 and regular rate & rhythm Recommendations Surgery/Procedure today Coding Level of Care Code Acute Property Insurance Claims Examiner for Kimberly Fine
[2021-10-04 11:33] VITALS: BP 124/87; PULSE 83; RESP 18; TEMP 36.2; O2SAT 99
[2021-10-04 11:44] VITALS: BP 134/93; PULSE 73; RESP 18; O2SAT 100
[2021-10-04 12:01] VITALS: BP 136/97; PULSE 73; RESP 18; O2SAT 100
--- NOTE | 2021-10-04 15:29 | ANE.PACU2 ---
Inpatient post-anesthesia follow up: Airway intact: Yes Vital signs: Temperature 97.2 F Pulse Rate 73 Respiratory Rate 18 Blood Pressure 136/97 Pulse Oximetry 100 Oxygen Delivery Me thod Room Air Oxygen Flow Rate 4 Fraction of Inspir ed Oxygen Hydration adequate: Yes Nausea and vomiting: No Pain level: 1 Mental status: Baseline
== END 2021-10-04 12:02 | disposition home or self-care (01) ==
PROVIDERS: PCP Nurse Practitioner Family; Visit Provider Surgery
PROC: 0DJD8ZZ Inspection of Lower Intestinal Tract, Via Natural or Artificial Opening Endoscopic (ICD-10-PCS; CPT 45378; principal; 2021-10-04 10:45)
DX: K52.9 Noninfective gastroenteritis and colitis, unspecified (principal); J44.9 Chronic obstructive pulmonary disease, unspecified; I10 Essential (primary) hypertension; K21.9 Gastro-esophageal reflux disease without esophagitis; Z79.01 Long term (current) use of anticoagulants
CPT/HCPCS: 45380; 82274; 83630; 87493; 87506; 88305; 96360; 96361; J2704; J7030

== ENCOUNTER → 2021-10-29 13:35 | Outpatient (BNVA) | payer BC, SELFPAY | PROVIDERS: PCP Nurse Practitioner Family; Visit Provider Internal Medicine Medical Oncology | DX: Z79.01 Long term (current) use of anticoagulants (principal) | CPT/HCPCS: 85610 ==

== ENCOUNTER → 2021-11-30 08:34 | Outpatient (BNVA) | payer BC, SELFPAY | PROVIDERS: PCP Nurse Practitioner Family; Visit Provider Internal Medicine Medical Oncology | DX: I81 Portal vein thrombosis (principal); Z79.01 Long term (current) use of anticoagulants | CPT/HCPCS: 85610 ==

== ENCOUNTER 2021-12-05 11:32 | Outpatient (CLI) | payer BC, SELFPAY ==
[2021-12-05 12:29] LABS: INR 1.36 (0.8-1.2)
--- NOTE | 2021-12-08 12:42 | ONC FU_ITS ---
Dr. Lemus Patient Follow-Up Note Patient: Padmini Rothman Unit #: [id number]: [id number] Dicatated By: Royal Lemus M.D.Date of Visit:Dec 05, 2021 Onc Med Follow-up/Prog Note Chief Complaint: Portal vein thrombosis. History of Present Illness: This is a 51 year-old woman with portal vein thrombosis. On 06/01/2021 she was admitted to the hospital after presenting to the emergency room with abdominal pain. Her laboratory studies showed a mildly elevated white blood cell count and mildly elevated alkaline phosphatase level. Contrast-enhanced CT of the abdomen/pelvis showed evidence of obstructive thrombosis involving the posterior right portal vein. Thrombus was noted to begin in the proximal portal vein and extend to the periphery of the liver. The main portal vein was noted to be widely patent. Also noted was mucosal edema involving the descending and sigmoid colon, consistent with colitis. She began on empiric antibiotic coverage with ciprofloxacin and metronidazole and she also began on anticoagulation with Lovenox. At discharge she continued her anticoagulation with warfarin along with a suitable overlap with Lovenox. Her evaluation in the hospital included a molecular panel for myeloproliferative disorders, which was negative, including the JAK2 V617F mutation. The prothrombin gene mutation and the factor V Leiden mutation were not detected. The antithrombin III activity, protein C functional activity, and protein S activity were normal. An anticardiolipin antibody screen was negative. A lupus anticoagulant screen was also requested but the result was reported as pending . On 06/18/2021 she was treated in the emergency room for suspected superficial thrombophlebitis of the left leg. She did not have any imaging studies. On 07/26/2021 she was seen in the emergency room with recurrence of abdominal pain. Her comprehensive metabolic profile showed mildly elevated alkaline phosphatase. Her CT abdomen/pelvis continued to show mild mucosal edema throughout the colon with a few mildly prominent small bowel loops, most consistent with gastroenteritis. The right portal vein was noted to be small caliber and partially obstructed. At that point her anticoagulation was changed to dabigatran, but she tolerated it very poorly, and she then went back on warfarin. I had seen her initially on 08/13/2021 and at that point she continued on anticoagulation with warfarin. She underwent colonoscopy by Dr. Rosario on 10/04/2021. It showed mild colitis involving the majority of the sigmoid colon. Biopsies showed just mild nonspecific colitis. Her medical illnesses have otherwise been limited to hypertension, GERD, and anxiety/depression. She has a history of smoking 1 pack of cigarettes daily for 28 years. She quit smoking in 2015. She is seen for a follow-up visit. She has not been feeling good. She says that at least 2 or 3 times a week her legs hurt so bad that she is in tears. She does have to stay up on her feet all day long at work, and she describes her self as one big leg ache. Her energy is awful. Her ECOG score is 1. Her appetite is good. She has gained weight. She has not had fever. She occasionally has sweating at night. She has not had sore mouth or throat. She does not complain of cough, and she has not been having shortness of breath or chest pain. She currently has no GI or complaints. She has no other joint or bone pain. She does not complain of headache. She sometimes has dizziness. She has no numbness/paresthesia or other focal neurologic symptoms. Medications: buPROPion HCl ER (SR) 1 Tablet (of 200 mg) Tablet SR 12 HR Oral b.i.d., Furosemide 1 Tablet (of 80 mg) Oral daily PRN, Lisinopril 1 Tablet (of 20 mg) Oral daily, Omeprazole 1 Tablet (of 20 mg) Capsule Delayed Release Oral daily, Warfarin Sodium 1 Tablet (of 9.5 mg) Oral daily Allergies: Celecoxib and traMADol HCl. Vital Signs: Performed on Dec 05, 2021 15:14 Height - 65.00 in Weight - 195.2 lbs (HIGH) BSA - 1.96 sq.m BMI - 32.48 (HIGH) Temperature - 97.9 F (LOW) Pulse - 78 /min Respiration - 19 /min BP - 124/83 mm(hg) O2 Sat - 98 % Pain - 0 Fatigue - 0 Physical Examination: Constitutional - She looks pretty good generally, Eyes - Sclerae nonicteric. Conjunctivae clear, ENMT - No lesions noted in the oral cavity, Hematologic/Lymphatic - No cervical, clavicular, or axillary adenopathy, Respiratory - Lungs are clear with good air movement bilaterally, Cardiovascular - Heart rhythm is regular. There is no murmur, gallop, or rub noted, Abdomen - Soft and non-tender. Liver and spleen are not enlarged. There is no abdominal mass or ascites noted and there is no inguinal adenopathy, Extremities - No edema. She has good dorsalis pedis pulses bilaterally, Neurologic - No focal neurologic deficits noted. Problem List: 1. Portal vein thrombosis. This may be idiopathic or may it be due to underlying inflammatory bowel disease. There was no clinical or laboratory evidence for underlying thrombophilia or myeloproliferative disorder. 2. There has been CT evidence for mucosal edema of the colon. She has had empiric antibiotic therapy. She has not yet had direct imaging or biopsy. 3. She is having significant pain in the lower extremities. A specific cause has not been determined. 4. Hypertension. 5. GERD. 6. Anxiety/depression. Problems Addressed with this Encounter and Plan: 1. Portal vein thrombosis. This may be idiopathic or may it be due to underlying inflammatory bowel disease. There was no clinical or laboratory evidence for underlying thrombophilia or myeloproliferative disorder. She had initially continued anticoagulation with warfarin, she now prefers to get back on a direct oral anticoagulant. She previously had poor tolerance for Pradaxa, but at this point she prefers to try that again as opposed to changing to a different medication, as he still has a significant supply. She will restart now at 150 mg daily. If she does not tolerate it, she can then be transitioned to either apixaban or rivaroxaban. In the meantime, she will be scheduled for repeat CT abdomen/pelvis. She will have further evaluation as indicated. 2. She has had evidence of colitis by CT scan and by colonoscopy. Biopsies showed just mild nonspecific colitis. It is uncertain to what extent that may be contributing to the portal vein thrombosis. 3. She has been having significant lower extremity pain. A specific cause has not been determined. Her symptoms and clinical findings have not been suspicious for either thrombosis arterial insufficiency. Signed By: Royal Lemus M.D. <<Signature on File>>
== END 2021-12-05 11:33 | disposition home or self-care (01) ==
LOC: ONCMED 11:38
PROVIDERS: PCP Nurse Practitioner Family; Visit Provider Internal Medicine Medical Oncology
DX: I81 Portal vein thrombosis (principal); I10 Essential (primary) hypertension; K21.9 Gastro-esophageal reflux disease without esophagitis; F41.9 Anxiety disorder, unspecified; F32.A Depression, unspecified; Z79.01 Long term (current) use of anticoagulants; Z87.891 Personal history of nicotine dependence
CPT/HCPCS: 36415; 85610; 99214

== ENCOUNTER 2021-12-11 12:06 | Outpatient (CLI) | payer BC, SELFPAY ==
[2021-12-11 12:44] LABS: Basophils % 0.4 %; Eosinophils # 0.1 10^3/uL (0.0-0.8); Eosinophils % 1.6 %; Hematocrit 42.3 % (37.0-47.0); Hemoglobin 13.7 g/dL (11.5-15.3); Lymphocytes % 14.1 %; Mean Corpuscular HGB Conc 32.4 g/dL (30.0-36.0); Mean Corpuscular Hemoglobin 28.2 pg (28.0-34.0); Mean Corpuscular Volume 87.2 fl (81-99); Mean Platelet Volume 10.6 fL (7.4-10.4); Monocytes # 0.7 10^3/uL (0.2-0.9); Monocytes % 9.8 %; Neutrophils # 5.04 10^3/uL (1.8-7.7); Neutrophils % 73.5 %; Nucleated Red Blood Cells % 0 %; Platelet Count 298 10^3/cmm (130-400); Red Blood Count 4.85 10^6/uL (4.1-5.3); Red Cell Distribution Width 13.4 % (12.1-15.1); White Blood Count 6.9 10^3/uL (4.0-10.0)
--- NOTE | 2021-12-11 12:53 | CT_ITS ---
WS: [id number] CT ABDOMEN PELVIS TECHNIQUE: Contrast-enhanced CT of the abdomen and pelvis with coronal and sagittal reformatted image s. CLINICAL INFORMATION: PORTAL VEIN THROMBOSIS/COLITIS COMPARISON: CT July 26, 2021 June 01, 2021 DLP: 1817.[address] scans at [facility] use at least one of these dose optimization techniques: automated e xposure control; mA and/or kV adjustment per patient size (includes targeted exams where dose is matc hed to clinical indication); or iterative reconstruction. FINDINGS: Diffuse fatty infiltration of the liver. Chronic thrombosis of the right portal vein is unchanged sin ce the prior examinations. No evidence of acute thrombosis. Main portal vein and portal vein confluen ce are normal. Normal splenic vein. No hepatic lesions. Lung bases are well aerated. Splenic granulom as. Normal pancreas. Adrenal glands are normal. Normal renal parenchymal enhancement. No hydronephros is. Normal GE junction. Lung bases are well aerated. Normal caliber abdominal aorta. No periaortic or per itoneal lymphadenopathy. No pelvic or inguinal lymphadenopathy. Normal sigmoid colon. No evidence of high-grade small or large bowel obstruction. Previously describe d colitis has essentially resolved. Minimal residual inflammatory stranding about the cecum and ileoc ecal valve. Mild transverse colon constipation. Chronic bilateral pars defects L5-S1. Stable grade 1 anterolisthesis. Prior hysterectomy. Stable calc ification along the left adnexa. CT/CT abdomen pelvis w con* [id number] IMPRESSION: 1. Mild diffuse fatty infiltration of the liver. Chronic thrombosis of the rig ht portal vein unchanged. No acute portal vein thrombosis. 2. Main portal vein and portal vein confluence are patent. 3. Previously described colitis has essentially resolved. Small amount of resi dual inflammatory changes about the cecum and ileocecal valve. 4. Grade 1 anterolisthesis L5 on S1 with chronic bilateral pars defects. 5. Prior cholecystectomy. 6. No other significant changes compared to previous.
[2021-12-11 13:00] LABS: Erythrocyte Sedimentation Rate 11 mm/hr (0-15)
[2021-12-11 13:03] LABS: D Dimer <= 0.27 ug/mIFEU (0-0.59)
[2021-12-11 13:07] LABS: Alanine Aminotransferase 21 U/L (0-33); Albumin Level 4.4 g/dL (3.5-5.2); Alkaline Phosphatase 120 IU/L (35-105); Anion Gap 17.2 (5-19); Aspartate Amino Transferase 20 U/L (0-32); Blood Urea Nitrogen 14 mg/dL (6-20); Calcium 8.8 mg/dL (8.5-10.5); Carbon Dioxide 20 mmol/L (22-29); Chloride 102 mmol/L (98-107); Globulin 2.8 g/dL (1.3-4.6); Glucose 93 mg/dL (65-115); Osmolality Calculated 280 mOsm/kg (285-295); Potassium 4.2 mmol/L (3.5-5.1); Sodium 135 mmol/L (136-145); Thyroid Stimulating Hormone 0.45 uIU/mL (0.27-4.20); Total Bilirubin 0.2 mg/dL (0.15-1.2); Total Protein 7.2 g/dL (6.6-8.7)
[2021-12-11] MEDS: iohexol 300 mg/mL 100 mL Btl IV (14:26)
== END 2021-12-11 12:07 | disposition home or self-care (01) ==
LOC: ONCMED 12:11
PROVIDERS: PCP Nurse Practitioner Family; Visit Provider Internal Medicine Medical Oncology
DX: I81 Portal vein thrombosis (principal); K52.9 Noninfective gastroenteritis and colitis, unspecified; K76.0 Fatty (change of) liver, not elsewhere classified; M43.07 Spondylolysis, lumbosacral region; Z90.49 Acquired absence of other specified parts of digestive tract; Z90.710 Acquired absence of both cervix and uterus; N83.8 Other noninflammatory disorders of ovary, fallopian tube and broad ligament
CPT/HCPCS: 36415; 74177; 80053; 83735; 84443; 85025; 85378; 85651; 86141; Q9967

== ENCOUNTER 2022-05-23 13:00 | Oncology outpatient (recurring) (ONCR) | payer BC, SELFPAY ==
[2022-05-23] MEDS: iohexol 300 mg/mL 100 mL Btl IV (11:53)
--- NOTE | 2022-05-23 13:00 | CT_ITS ---
WS: [id number] CT ABDOMEN PELVIS TECHNIQUE: Contrast-enhanced CT of the abdomen and pelvis with coronal and sagittal reformatted image s. CLINICAL INFORMATION: compare to last COMPARISON: December 11, 2021 DLP: 1176.[address] scans at [facility] use at least one of these dose optimization techniques: automated e xposure control; mA and/or kV adjustment per patient size (includes targeted exams where dose is matc hed to clinical indication); or iterative reconstruction. FINDINGS: Mild diffuse fatty infiltration of the liver. Chronic thrombosis of the RIGHT portal vein is unchange d. Prior cholecystectomy. Splenic vein is patent. Normal spleen. Normal GE junction. Lung bases are w ell aerated. Normal pancreas. Normal caliber abdominal aorta. Celiac and SMA are patent. Adrenal Glands are normal. No hydronephrosis. Normal caliber abdominal aorta. A few sigmoid diverticu li. No evidence of acute diverticulitis. No evidence of small or large bowel obstruction. No free flu id in the abdomen or pelvis. No periaortic or pelvic lymphadenopathy. No inguinal lymphadenopathy. Pr ior hysterectomy. Stable calcification LEFT adnexa CT/CT abdomen pelvis w con* [id number] IMPRESSION: 1. Chronic thrombus in the RIGHT portal vein is unchanged. 2. No other significant changes compared to previous. 3. Prior cholecystectomy 4. Grade 1 anterolisthesis L5 on S1 with chronic bilateral pars defects is sta ble. 5. No acute abdominal or pelvic findings
== END 2022-05-23 23:59 | disposition home or self-care (01) ==
LOC: RAD 05-24 00:02
PROVIDERS: PCP Nurse Practitioner Family; Visit Provider Internal Medicine Medical Oncology
DX: K52.9 Noninfective gastroenteritis and colitis, unspecified (principal); I81 Portal vein thrombosis; Z53.9 Procedure and treatment not carried out, unspecified reason
CPT/HCPCS: 74177; Q9967

== ENCOUNTER → 2022-09-10 08:37 | Outpatient (BNVA) | payer BC, SELFPAY | PROVIDERS: Visit Provider Orthopaedic Surgery | DX: M43.17 Spondylolisthesis, lumbosacral region (principal) | CPT/HCPCS: 72110 ==

== ENCOUNTER 2022-11-11 10:57 | Outpatient (CLI) | payer BC, SELFPAY ==
--- NOTE | 2022-11-11 11:00 | MR_ITS ---
WS: [id number] MRI LUMBAR SPINE NONCONTRAST TECHNIQUE: Sagittal T1, T2 and STIR imaging. Axial T1 and T2 imaging. CLINICAL INFORMATION: Pars defect found on CT COMPARISON: None. FINDINGS: Mild lumbar curve. No acute compression. No high-grade central canal stenosis. Chronic bilateral pars defects L5-S1 with chronic sclerosis. Slight anterolisthesis L5 on S1 appears unchanged compared to the prior studies measuring 4.4 mm. Slight retrolisthesis L2 on L3 and L3 on L4. L1-L2: Mild annular bulging. Slight effacement of the ventral thecal sac. Mild facet arthropathy. Spi nal canal and foramen are patent. L2-L3: Slight retrolisthesis. Mild annular bulging with mild central canal stenosis. Narrowing of the RIGHT greater than LEFT subarticular recess. Mild facet arthropathy. Mild RIGHT and no significant L EFT foraminal narrowing. L3-L4: Mild annular bulging. Mild central canal stenosis. Slight narrowing of the subarticular recess bilaterally. Mild RIGHT greater than LEFT foraminal narrowing. Mild facet arthropathy. L4-L5: Mild annular bulging. Moderate central canal stenosis. Moderate facet arthropathy with mild li gamentum flavum hypertrophy. Slight impingement traversing L5 nerve roots bilaterally. Mild LEFT [place] narrowing. RIGHT foramen is patent. L5-S1: Slight anterolisthesis L5 on S1. Chronic bilateral pars defects with sclerosis. Mild to modera te facet arthropathy. Mild LEFT foraminal narrowing. Visualized pelvic bony structures: Normal. Paravertebral soft tissues: Normal. MR/MR lumbar spine wo con* [id number] IMPRESSION: 1. Mild lumbar curve. No acute compression. 2. Chronic bilateral pars defects L5-S1 with grade 1 anterolisthesis unchanged . Mild LEFT foraminal narrowing at this level. 3. Mild central canal stenosis L2-L3 and L3-L4 with slight impingement on the RIGHT greater than LEFT subarticular recess at these levels. 4. Moderate central canal stenosis L4-L5 due to disc bulging with facet arthro sidra and mild ligamentum flavum hypertrophy. Slight impingement traversing L5 nerve roots bilaterally. 5. Small RIGHT foraminal protrusion L3-L4 with slight contact of the exiting R IGHT L3 nerve root. 6. Mild LEFT greater than RIGHT L4-L5 foraminal narrowing.. 7. Mild RIGHT L2-L3 foraminal narrowing.
== END 2022-11-11 10:58 | disposition home or self-care (01) ==
PROVIDERS: Visit Provider Orthopaedic Surgery
DX: M43.17 Spondylolisthesis, lumbosacral region (principal)
CPT/HCPCS: 72148

== ENCOUNTER 2023-03-12 10:43 | Emergency (ER) | payer BC, MEDICAID, SELFPAY ==
[2023-03-12 11:46] VITALS: BP 137/85; PULSE 81; TEMP 36.6; O2SAT 99; BMI 29.6
[2023-03-12 12:13] LABS: Basophils # 0.1 10^3/uL (0.0-0.1); Basophils % 0.5 %; Eosinophils # 0.2 10^3/uL (0.0-0.8); Eosinophils % 1.6 %; Hematocrit 45.5 % (37.0-47.0); Hemoglobin 14.9 g/dL (11.5-15.3); Lymphocytes # 2.7 10^3/uL (0.8-4.8); Lymphocytes % 25.6 %; Mean Corpuscular HGB Conc 32.7 g/dL (30.0-36.0); Mean Corpuscular Hemoglobin 28.6 pg (28.0-34.0); Mean Corpuscular Volume 87.3 fl (81-99); Mean Platelet Volume 10.2 fL (7.4-10.4); Monocytes # 0.6 10^3/uL (0.2-0.9); Monocytes % 5.8 %; Neutrophils # 7.04 10^3/uL (1.8-7.7); Neutrophils % 66.2 %; Nucleated Red Blood Cells % 0 %; Platelet Count 337 10^3/cmm (130-400); Red Blood Count 5.21 10^6/uL (4.1-5.3); Red Cell Distribution Width 13.2 % (12.1-15.1); White Blood Count 10.6 10^3/uL (4.0-10.0)
[2023-03-12 12:29] LABS: Alanine Aminotransferase 16 U/L (0-33); Albumin Level 4.8 g/dL (3.5-5.2); Alkaline Phosphatase 104 U/L (35-105); Anion Gap 15.1 (5-19); Aspartate Amino Transferase 15 U/L (0-32); Blood Urea Nitrogen 12 mg/dL (6-20); Calcium 9.1 mg/dL (8.5-10.5); Carbon Dioxide 25 mmol/L (22-29); Chloride 103 mmol/L (98-107); Globulin 2.8 g/dL (1.3-4.6); Glomerular Filtration Rate 104.6 mL/min (90-130); Glucose 88 mg/dL (65-115); Lipase 39 U/L (13-60); Osmolality Calculated 287 mOsm/kg (285-295); Potassium 4.1 mmol/L (3.5-5.1); Sodium 139 mmol/L (136-145); Total Bilirubin 0.2 mg/dL (0.15-1.2); Total Protein 7.6 g/dL (6.6-8.7)
[2023-03-12 12:44] VITALS: BP 105/75; PULSE 77; RESP 18; O2SAT 99
--- NOTE | 2023-03-12 14:04 | XR_ITS ---
WS: [id number] Portable AP upright chest, 03/12/2023 Clinical Data: dyspnea/cough Comparison: Portable chest, 06/01/2021 Findings: No nodules, masses or effusions are seen. The heart is normal. The pulmonary vascularity is not increased. No pneumonia or pneumothorax is seen. Calcified right paratracheal lymph node remains unchanged. XR/XR chest 1V portable [id number] Impression: Negative chest.
--- NOTE | 2023-03-12 14:09 | W.ED.SOB ---
HPI - SOB/Dyspnea General: Chief Complaint: Shortness of Breath/Dyspnea Stated Complaint: Allan sent for possible e.coli Time Seen by Provider: 03/12/23 14:03 Source: patient Mode of arrival: ambulatory History of Present Illness: HPI Narrative: 52-year-old female presents emergency room with complaint of shortness of breath. Patient has a history of portal vein thrombosis for which she is on Pradaxa. This was diagnosed several years ago and talking with her I could not elicit specifically what they thought had precipitated it she thought potentially it was an episode of colitis that she had had. Recently she has noticed an increase in diarrhea and abdominal cramping. Dr. nael Lemus had given her antibiotics to take when these symptoms started a few days ago she started taking Cipro and Flagyl. She denies any hematochezia. No chest pain at this time. Does not get chest pain with exertion but does get short of breath. No history of heart disease. MD elicited complaint: shortness of breath Onset (ago): day(s) Timing: constant Exacerbating factors: nothing Relieving factors: nothing Known history of: other (Portal vein thrombosis) Associated symptoms: Reports abdominal pain; Deny chest congestion, chest pain, cough, diaphoresis, dizziness, extremity pain, fever(s), hemoptysis, lightheadedness, myalgias, nausea, orthopnea, palpitations, paresthesias, polydipsia, polyuria, rash, sense of impending doom, syncope or vomiting Treatment prior to arrival: none Review of Systems Const: Denies: fever(s), chills, fatigue, malaise or diaphoresis ENMT: Denies: throat pain, ear or mastoid pain, nasal discharge or nasal congestion Card: Denies: chest pain, palpitations, edema, swelling of feet/ankles, lightheadedness, syncope or orthopnea Resp: Reports: dyspnea; Denies: productive cough, non-productive cough, wheezing, hemoptysis or chest congestion GI: Reports: abdominal pain; Denies: nausea or vomiting : Denies: flank pain, difficulty voiding, dysuria, urinary frequency or urinary urgency Musc: Denies: extremity pain Skin/Breast: Denies: rash or pruritus Neuro: Denies: dizziness Endo: Denies: polyuria or polydipsia PFS ED PFSH: Medical History Allergic sinusitis Anxiety and depression Chronic anticoagulation Colitis COPD (chronic obstructive pulmonary disease) Essential hypertension Portal vein thrombosis Vitamin D deficiency Surgical History History of arthroscopic knee surgery History of hysterectomy (1996) Hysterectomy with unilateral right oophorectomy S/P cholecystectomy Status post colonoscopy (10/04/21) Family History Mother Dementia Hyperlipidemia Grandfather Cancer Grandmother Cancer Other CAD (coronary artery disease) Diabetes Hypertension Denies family history of Clotting disorder Psychiatric illness Chronic kidney disease (CKD) Suicide Anesthesia complication Bleeding disorder Lung disease Stroke Social History Smoking and tobacco status: current some day smoker Second hand smoke exposure: No Smoking risk assessment/counseling performed?: No Alcohol intake: current Alcohol intake frequency: holidays/special occasions only Desire information about alcohol rehabilitation?: No Counseling given: No Substance/Drug Use: never Desire information about substance/drug rehabilitation?: No Counseling given: No Physical Exam Const: COMMON NORMALS: no acute distress GENERAL APPEARANCE: cooperative and comfortable ORIENTATION/CONSCIOUSNESS: Yes awake, Yes oriented to person, Yes oriented to place and Yes oriented to time HENMT: COMMON NORMALS: normocephalic, atraumatic and hearing grossly normal bilaterally HEAD & SCALP: normocephalic and atraumatic Resp: COMMON NORMALS: normal respiratory effort, No retractions, No use of accessory muscles and clear to auscultation bilaterally AUSCULTATION: clear to auscultation bilaterally Cardio: COMMON NORMALS: regular rate, regular rhythm and No murmurs present (Cardio) RATE: regular rate RHYTHM: regular rhythm GI: COMMON NORMALS: Soft to palpation and No hepatosplenomegaly present AUSCULTATION: Yes normoactive bowel sounds PALPATION: Yes Soft to palpation, No Tenderness to palpation present (GI), No Guarding due to palpation present (GI) and Yes No hepatosplenomegaly present Extremity: COMMON NORMALS: normal to inspection, capillary refill normal, no clubbing, cyanosis or edema, no calf tenderness and no pedal edema Neuro: SENSORIUM/ORIENTATION: Yes oriented to person, Yes oriented to place and Yes oriented to time Skin: COMMON NORMALS: no rashes or lesions noted GENERAL SKIN EXAM: no rashes or lesions noted Course Vital Signs: Vital signs: Vital Signs Temperature 97.9 F 03/12/23 11:46 Pulse Rate 76 03/12/23 16:09 Respiratory Rate 18 03/12/23 12:44 Blood Pressure 116/69 03/12/23 16:09 Pulse Oximetry 97 03/12/23 16:09 Oxygen Delivery Me thod Room Air 03/12/23 11:46 MDM - SOB/Dyspnea Medical Decision Making She has known portal vein thrombosis. Abdominal exam is benign. She is continue on her anticoagulant. CT of the chest negative for PE. Continue oral anticoagulant follow-up with her primary care doctor. EKG and other labs are otherwise unremarkable no acute changes. Medical Records I reviewed the patient's medical records. Lab Data I reviewed the patient's lab results. 03/12/23 12:00 03/12/23 12:00 Labs/Radiology: Radiology Impressions Chest X-Ray 03/12/23 14:04 Impression: Negative chest. Chest CTA 03/12/23 14:14 IMPRESSION: 1. No pulmonary embolism. 2. No pneumonia. 3. Prior cholecystectomy. Laboratory Results WBC 10.6 10^3/uL (4.0-10.0) H 03/12/23 12:00 RBC 5.21 10^6/uL (4.1-5.3) 03/12/23 12:00 Hgb 14.9 g/dL (11.5-15.3) 03/12/23 12:00 Hct 45.5 % (37.0-47.0) 03/12/23 12:00 MCV 87.3 fl (81-99) 03/12/23 12:00 MCH 28.6 pg (28.0-34.0) 03/12/23 12:00 MCHC 32.7 g/dL (30.0-36.0) 03/12/23 12:00 RDW 13.2 % (12.1-15.1) 03/12/23 12:00 Plt Count 337 10^3/cmm (130-400) 03/12/23 12:00 MPV 10.2 fL (7.4-10.4) 03/12/23 12:00 Neut % (Auto) 66.2 % 03/12/23 12:00 Lymph % (Auto) 25.6 % 03/12/23 12:00 [place] % (Auto) 5.8 % 03/12/23 12:00 Eos % (Auto) 1.6 % 03/12/23 12:00 Baso % (Auto) 0.5 % 03/12/23 12:00 Neut # (Auto) 7.04 10^3/uL (1.8-7.7) 03/12/23 12:00 Lymph # (Auto) 2.7 10^3/uL (0.8-4.8) 03/12/23 12:00 [place] # (Auto) 0.6 10^3/uL (0.2-0.9) 03/12/23 12:00 Eos # (Auto) 0.2 10^3/uL (0.0-0.8) 03/12/23 12:00 Baso # (Auto) 0.1 10^3/uL (0.0-0.1) 03/12/23 12:00 Nucleated RBC % (auto) 0 % 03/12/23 12:00 Nucleated RBCs # 0.0 /100WBC 03/12/23 12:00 Sodium 139 mmol/L (136-145) 03/12/23 12:00 Potassium 4.1 mmol/L (3.5-5.1) 03/12/23 12:00 Chloride 103 mmol/L (98-107) 03/12/23 12:00 Carbon Dioxide 25 mmol/L (22-29) 03/12/23 12:00 Anion Gap 15.1 (5-19) 03/12/23 12:00 BUN 12 mg/dL (6-20) 03/12/23 12:00 Creatinine 0.6 mg/dL (0.5-0.9) 03/12/23 12:00 GFR Calculation 104.6 mL/min (90-130) 03/12/23 12:00 Glucose 88 mg/dL (65-115) 03/12/23 12:00 Calculated Osmolality 287 mOsm/kg (285-295) 03/12/23 12:00 Calcium 9.1 mg/dL (8.5-10.5) 03/12/23 12:00 Total Bilirubin 0.2 mg/dL (0.15-1.2) 03/12/23 12:00 AST 15 U/L (0-32) 03/12/23 12:00 ALT 16 U/L (0-33) 03/12/23 12:00 Alkaline Phosphatase 104 U/L (35-105) 03/12/23 12:00 Total Protein 7.6 g/dL (6.6-8.7) 03/12/23 12:00 Albumin 4.8 g/dL (3.5-5.2) 03/12/23 12:00 Globulin 2.8 g/dL (1.3-4.6) 03/12/23 12:00 Lipase 39 U/L (13-60) 03/12/23 12:00 Discharge Plan Discharge Patient Disposition: Home Clinical Impression: Portal vein thrombosis Condition: Stable Prescriptions: No Action ciprofloxacin HCl [Cipro] 500 mg tablet 500 mg PO BID Qty: 14 0RF metronidazole 500 mg tablet 500 mg PO TID Qty: 21 0RF Pradaxa 150 mg capsule 150 mg PO BID Qty: 180 1RF ibuprofen 200 mg capsule 200 mg PO Q6H PRN acetaminophen [Tylenol Arthritis Pain] 650 mg tablet extended release 650 mg PO Q12H bupivacaine (PF) 0.25 % (2.5 mg/mL) solution 2 ml Infiltration ONCE Qty: 1 0RF bupivacaine (PF) 0.25 % (2.5 mg/mL) solution 2 ml Infiltration ONCE Qty: 1 0RF furosemide 80 mg tablet See Rx Instructions .ROUTE .COMPLEX Qty: 30 0RF Dose Instruction: TAKE 1 TABLET BY MOUTH ONCE DAILY NEEDED FOR EDEMA. TAKE ONE-FOURTH OF A TABLET DAILY NEEDED. CAN TITRATE UP IF NEEDED. Rx Instructions: TAKE 1 TABLET BY MOUTH ONCE DAILY NEEDED FOR EDEMA. TAKE ONE-FOURTH OF A TABLET DAILY NEEDED. CAN TITRATE UP IF NEEDED. ciprofloxacin HCl [Cipro] 500 mg tablet 500 mg PO BID 7 Days Qty: 14 1RF metronidazole 500 mg tablet 500 mg PO TID 7 Days Qty: 21 1RF bupropion HCl 200 mg tablet sustained-release 12 hr See Rx Instructions .ROUTE .COMPLEX Qty: 60 0RF Dose Instruction: Take 1 tablet by mouth twice daily Rx Instructions: Take 1 tablet by mouth twice daily lisinopril 20 mg tablet See Rx Instructions .ROUTE .COMPLEX Qty: 30 2RF Dose Instruction: TAKE 1 TABLET BY MOUTH ONCE DAILY FOR ESSENTIAL HYPERTENSION Rx Instructions: TAKE 1 TABLET BY MOUTH ONCE DAILY FOR ESSENTIAL HYPERTENSION omeprazole magnesium [Prilosec OTC] 20 mg Tablet,Delayed Release (Dr/Ec) 20 mg PO DAILY Discharge Orders: Discharge ED (Routine); Ordered 03/12/23 Ordered By: Baron Cochran Referrals: Royal Lemus MD [Primary Care Provider] - Discharge Diet: Usual diet Discharge Activity: Increase activity as tolerated Patient Instructions: Opioid Safety, Pain Management Activity Restrictions/Additional Instructions: You are seen today with complaints of shortness of breath and upper quadrant abdominal discomfort. Your labs are unremarkable your CT did not show any clot in the lung. Recommend you continue your Eliquis and follow-up with Dr. Lemus if your symptoms persist. 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
--- NOTE | 2023-03-12 14:14 | CT_ITS ---
WS: [id number] CT CHEST ANGIOGRAPHY WITH REFORMATS HISTORY: History of portal vein thrombosis, shortness of breath with TECHNIQUE: Contiguous axial images are obtained through the chest during arterial injection of intrav enous contrast. Images are reconstructed to evaluate the pulmonary arteries. MIP imaging also reviewe d. All CT scans at [facility] use at least one of these dose optimization techniques: automat ed exposure control; mA and/or kV adjustment per patient size (includes targeted exams where dose is matched to clinical indication); or iterative reconstruction. CONTRAST: Omnipaque 350; 100 mL IV. DLP: 402.64 mGy.cm COMPARISON: Chest CT 04/14/2020. Good opacification of the pulmonary arteries. Normal size pulmonary artery. No filling defects. Joseline l size aorta. Normal size heart with no RIGHT heart strain. No pericardial or pleural effusions. No pneumonia. Stable 5 mm nodule along the RIGHT minor fissure. Benign granuloma LEFT lower lobe. Lar ge RIGHT paratracheal calcified lymph node measuring 3.7 x 2.7 cm. Small mediastinal and hilar lymph nodes. No hiatal hernia. Prior cholecystectomy. No adrenal mass. No bone destruction. CT/CT angio chest PE protcl [id number] IMPRESSION: 1. No pulmonary embolism. 2. No pneumonia. 3. Prior cholecystectomy.
[2023-03-12] MEDS: iohexol 350 mg/mL 500 mL Btl (per mL) IV (14:32)
--- NOTE | 2023-03-12 15:40 | ECG_ITS ---
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 Measurements Intervals [place] Rate: 68 P: 53 GA: 177 QRS: 54 QRSD: 92 T: 49 QT: 395 QTc: 422 Interpretive Statements SINUS RHYTHM Compared to ECG 06/01/2021 17:19:55 No significant changes Electronically Signed On 03-14-2023 1:29:19 CDT by Ismael Landaverde M.D. [id number]
[2023-03-12 16:09] VITALS: BP 116/69; PULSE 76; O2SAT 97
== END 2023-03-12 16:11 | disposition home or self-care (01) ==
PROVIDERS: Emergency Provider Family Medicine; PCP Internal Medicine Medical Oncology
DX: I81 Portal vein thrombosis (principal); F17.210 Nicotine dependence, cigarettes, uncomplicated; J44.9 Chronic obstructive pulmonary disease, unspecified; I10 Essential (primary) hypertension
CPT/HCPCS: 36415; 71045; 71275; 80053; 83690; 85025; 93005; 99285; Q9967

== ENCOUNTER 2023-06-05 10:38 | Oncology outpatient (recurring) (ONCR) | payer BC, SELFPAY | END 2023-06-23 23:59 | disposition home or self-care (01) | LOC: ONCMED 10:38 | PROVIDERS: PCP Internal Medicine Medical Oncology; Visit Provider Internal Medicine Medical Oncology | DX: Z53.9 Procedure and treatment not carried out, unspecified reason (principal) ==

== ENCOUNTER 2023-06-23 07:31 | Outpatient (CLI) | payer BC, MEDICAID, SELFPAY ==
--- NOTE | 2023-06-23 08:00 | CT_ITS ---
WS: [id number] CT ABDOMEN AND PELVIS WITH CONTRAST HISTORY: Follow-up portal vein thrombosis. Prior hysterectomy. TECHNIQUE: Imaging performed of the abdomen and pelvis with IV contrast. Single phase imaging of the abdomen. Coronal and sagittal reformats are submitted. All CT scans at [facility] use at [address] one of these dose optimization techniques: automated exposure control; mA and/or kV adjustment per patient size (includes targeted exams where dose is matched to clinical indication); or iterative re construction. IV CONTRAST: Omnipaque 350; 100 mL IV. Oral contrast: Yes. DLP: 424.63 mGy.cm COMPARISON: 05/23/2022, 12/11/2021, 06/01/2021. Lower thorax: Lung bases are clear. Heart is normal size. No hiatal hernia. Liver/biliary system: Normal size with no intrahepatic dilatation. Again noted is narrowing and irreg ularity of the RIGHT portal vein which has been present on several prior examinations with no progres esther. There is no main portal vein or superior vein thrombosis. Gallbladder: Status post cholecystectomy. Pancreas: Normal size pancreas and pancreatic duct. No adjacent inflammation. Spleen: Normal size spleen with several granulomata. Adrenal glands: Normal. Right kidney: Normal. Left kidney: Normal. Aorta: Mild atherosclerosis with no aneurysm. Lymphadenopathy: None. Free fluid: None. GI tract: Mild diffuse wall thickening of the stomach is probably due to underdistention. No small ana laura wel obstruction. Mild constipation. Normal appendix. Minimal sigmoid diverticulosis without acute div erticulitis. Abdominal wall: Unremarkable abdominal wall. No hernia. Pelvis: Prior hysterectomy. Bones: 5 mm anterolisthesis of L5. Bilateral L5 pars defects. CT/CT abdomen pelvis w con* [id number] IMPRESSION: 1. Focal narrowing and irregularity involving RIGHT portal vein. Similar to pr ior studies and may be chronic pulmonary vein thrombosis. No progression over s everal prior examinations. Acute portal vein thrombosis as noted on 06/01/2021 is significantly decreased and now appears chronic. 2. Prior hysterectomy and cholecystectomy. 3. No adenopathy or ascites. 4. Grade 1 spondylolisthesis of L5 with spondylolysis.
[2023-06-23] MEDS: iohexol 350 mg/mL 500 mL Btl (per mL) PO (08:58)
[2023-06-23] MEDS: iohexol 350 mg/mL 500 mL Btl (per mL) IV (08:58)
== END 2023-06-23 07:32 | disposition home or self-care (01) ==
PROVIDERS: PCP Internal Medicine Medical Oncology; Visit Provider Internal Medicine Medical Oncology
DX: I81 Portal vein thrombosis (principal)
CPT/HCPCS: 74177; Q9967

== ENCOUNTER 2023-07-31 14:35 | Outpatient (CLI) | payer BC, MEDICAID, SELFPAY ==
--- NOTE | 2023-07-31 14:43 | CT_ITS ---
WS: [id number] CT NECK TECHNIQUE: Contrast-enhanced CT of the neck with coronal and sagittal reformatted images. CLINICAL INFORMATION: OTALGIA, LEFT EAR,ARTHRALGIA OF LEFT TEMPOROMANDIUBULAR JOIN COMPARISON: None. DLP: 171.[address] scans at [facility] use at least one of these dose optimization techniques: automated e xposure control; mA and/or kV adjustment per patient size (includes targeted exams where dose is matc hed to clinical indication); or iterative reconstruction. FINDINGS: The partially visualized paranasal sinuses are well aerated. Mild mucosal thickening in the ethmoid air cells. Retention cyst or polyp RIGHT maxillary sinus measuring 2.5 x 1.3 cm. Mastoid air cells well aerated. Normal posterior nasopharynx. Normal parapharyngeal fat. Parotid glands are norm al. Normal submandibular glands. Tongue base is normal in appearance. No evidence of supraglottic or glottic mass. Normal subglottic airway. Normal thyroid enhancement. Mandibular condyles are normal in appearance. No evidence of subchondral cystic change or degenerativ e sclerosis. Straightening of the normal cervical lordosis. Calcified lymph nodes RIGHT anterior mediastinum. Lung apices are well aerated. IMPRESSION: 1. Mastoid air cells are well aerated. 2. Retention cyst or polyp RIGHT maxillary sinus described above. 3. Normal posterior nasopharynx and parapharyngeal fat. 4. Mandibular condyles are normal in appearance. No degenerative or subchondral cystic changes. 5. No cervical lymphadenopathy.
[2023-07-31] MEDS: iohexol 350 mg/mL 500 mL Btl (per mL) IV (15:00)
== END 2023-07-31 14:36 | disposition home or self-care (01) ==
PROVIDERS: PCP Internal Medicine Medical Oncology; Visit Provider Otolaryngology
DX: J33.8 Other polyp of sinus (principal); H92.02 Otalgia, left ear; M26.622 Arthralgia of left temporomandibular joint; R07.0 Pain in throat
CPT/HCPCS: 70491; Q9967

== ENCOUNTER → 2023-10-23 09:22 | Outpatient (BNVA) | payer BC, SELFPAY | PROVIDERS: PCP Nurse Practitioner Family; Visit Provider Nurse Practitioner Family | DX: E55.9 Vitamin D deficiency, unspecified (principal); Z12.31 Encounter for screening mammogram for malignant neoplasm of breast; Z79.899 Other long term (current) drug therapy; Z79.01 Long term (current) use of anticoagulants; I81 Portal vein thrombosis; E78.2 Mixed hyperlipidemia; K91.5 Postcholecystectomy syndrome; H66.91 Otitis media, unspecified, right ear; I10 Essential (primary) hypertension; F41.9 Anxiety disorder, unspecified; F32.9 Major depressive disorder, single episode, unspecified; Z01.89 Encounter for other specified special examinations; H66.005 Acute suppurative otitis media without spontaneous rupture of ear drum, recurrent, left ear | CPT/HCPCS: 80053; 80061; 81003; 82306; 83036; 84443; 85025 ==

== ENCOUNTER 2023-12-23 14:01 | Outpatient (CLI) | payer BC, SELFPAY ==
--- NOTE | 2023-12-23 14:30 | MR_ITS ---
WS: [id number] MRI LUMBAR SPINE WITH CONTRAST TECHNIQUE: Sagittal T1, T2 and STIR imaging. Axial T1 and T2 imaging. Post gadolinium imaging was obt ained. CLINICAL INFORMATION: M43.17 - Spondylolisthesis, lumbosacral region COMPARISON: MRI 11/11/2022 FINDINGS: Mild lumbar curve. No acute compression. Slight anterolisthesis L5 on S1 with chronic spondylolysis. This appears unchanged compared to previous. Slight retrolisthesis L2 on L3 and L3 on L4. L1-L2: Mild annular bulging. Mild facet arthropathy. Spinal canal and foramen are patent. L2-L3: Slight retrolisthesis. Mild annular bulging with slight effacement of the ventral thecal sac. Mild narrowing of the subarticular recess bilaterally. Mild facet arthropathy. Foramen are patent. L3-L4: Slight retrolisthesis. Mild annular bulge with mild central canal stenosis. Moderate facet art hropathy. Impingement traversing RIGHT L4 nerve root. RIGHT foraminal protrusion impinges the exiting RIGHT L3 nerve root with moderate RIGHT foraminal narrowing unchanged from previous. LEFT foramen is patent. Central canal stenosis appears slightly progressed at this level. L4-L5: Mild annular bulging with moderate central canal stenosis. Impingement traversing L5 nerve shani ts bilaterally in the subarticular recess. Moderate facet arthropathy. Mild LEFT and no significant R IGHT foraminal narrowing. L5-S1: Grade 1 anterolisthesis is stable. Chronic spondylolysis. Spinal canal is patent. Moderate fac et arthropathy. Mild bilateral foraminal narrowing. Visualized pelvic bony structures: Normal. Paravertebral soft tissues: Normal. Periarticular edema with enhancement involving the L3-L4 L4-L5 and L5-S1 facets compatible with synov itis.a IMPRESSION: 1. Mild central canal stenosis L3-4 appears slightly progressed with impingement on the RIGHT greate r than LEFT subarticular recess and traversing L4 nerve roots. 2. Small RIGHT foraminal protrusion L3-4 impinges the exiting RIGHT L3 nerve root with moderate RIGH T foraminal narrowing. 3. Moderate central canal stenosis L4-5 impinges the traversing L5 nerve roots bilaterally. This anahy ears stable. 4. Stable grade 1 anterolisthesis L5 on S1 with chronic spondylolysis. 5. Moderate facet arthropathy L3-L4 L4-L5 and advanced L5-S1 with mild associated edema and enhancem ent compatible with synovitis worse at L4-5 and L5-S1 likely degenerative or inflammatory. L5-S1 syno vitis may be due to instability.
[2023-12-23] MEDS: gadobenate dimeglumine 20 mL vial IV (15:03)
== END 2023-12-23 14:02 | disposition home or self-care (01) ==
LOC: RAD 14:02
PROVIDERS: PCP Nurse Practitioner Family; Visit Provider Anesthesiology Pain Medicine
DX: M43.17 Spondylolisthesis, lumbosacral region (principal); M48.062 Spinal stenosis, lumbar region with neurogenic claudication; M51.26 Other intervertebral disc displacement, lumbar region; M47.817 Spondylosis without myelopathy or radiculopathy, lumbosacral region
CPT/HCPCS: 72158; A9577

== ENCOUNTER → 2024-01-02 10:05 | Outpatient (BNVA) | payer BC, SELFPAY | PROVIDERS: PCP Nurse Practitioner Family; Referring Provider Anesthesiology Pain Medicine; Visit Provider Orthopaedic Surgery | DX: M48.062 Spinal stenosis, lumbar region with neurogenic claudication (principal); Z01.812 Encounter for preprocedural laboratory examination | CPT/HCPCS: 36415; 72110; 80053; 81001; 83036; 85025 ==

== ENCOUNTER → 2024-01-23 10:40 | Outpatient (BNVA) | payer BC, SELFPAY | PROVIDERS: PCP Nurse Practitioner Family; Visit Provider Family Medicine | DX: Z01.818 Encounter for other preprocedural examination (principal) | CPT/HCPCS: 81003 ==

== ENCOUNTER 2024-01-28 05:21 | Day surgery (SDC) | payer BC, SELFPAY ==
[2024-01-28] VITALS (12 sets, daily range): BP systolic 105–139; BP diastolic 61–86; PULSE 74–90; RESP 10–27; TEMP 36.1–36.2; O2SAT 94–100; BMI 29.7
[2024-01-28] MEDS: sodium chloride 0.9% 1,000 ML 30 ML IV (06:26)
--- NOTE | 2024-01-28 06:43 | ANES.PREANE2 ---
Pre-Anesthetic Assessment Height/Weight: Height 1.65 m Weight 81.193 kg Temp Pulse Resp BP Pulse Ox O2 Del Method 97.0 F L 76 18 105/72 97 Room Air 01/28/24 06:11 01/28/24 06:11 01/28/24 06:11 01/28/24 06:11 01/28/24 06:11 01/28/24 06:11 Preop Diagnosis: Lumbar stenosis with neurogenic claudication Operation Date: 01/28/24 07:00 Proposed Procedures p Lumbar Spine Decompression Lumbar Decompression(Right) - Kasi Day DO Last intake: Intake Last Liquid Date 01/27/24 Last Liquid Time 19:00 Last Solid Date 01/27/24 Last Solid Time 16:30 Exam alert, oriented x 3, clear to auscultation bilaterally and regular rate & rhythm History/ROS No significant history except as noted Anesthetic Plan ASA status: 2 Anesthesia: General Risk of > 500 ml blood loss (7ml/kg in children): Yes, adequate IV access and fluids planned Medications/Allergies Home Medications Medication Instructions Recorded Confirmed Last Taken Type omeprazole magnesium 20 mg 20 mg PO DAILY 07/26/21 01/28/24 01/28/24 History tablet,delayed release (Prilosec OTC) dabigatran etexilate 150 mg 150 mg PO BID #180 caps 10/23/23 01/27/24 01/24/24 Rx capsule (Pradaxa) sulfamethoxazole 800 1 tab PO BID 3 days #6 tabs 01/25/24 01/27/24 01/27/24 Rx mg-trimethoprim 160 mg tablet (Bactrim DS) amlodipine 2.5 mg tablet (Norvasc) 2.5 mg PO BID 01/27/24 01/28/24 01/28/24 History bupropion HCl 200 mg tablet,12 hr 200 mg PO BID 01/27/24 01/27/24 01/27/24 History sustained-release furosemide 80 mg tablet 80 mg PO PRN PRN swelling 01/27/24 01/27/24 Unknown History ujevps-ubdsjoax-xtrcqej 1 cap PO BID 01/27/24 01/27/24 01/27/24 History 40,000-126,000-168,000 unit capsule, delay rel (Zenpep) lisinopril 40 mg tablet 40 mg PO DAILY 0301/27/24 01/27/24 History Allergies Allergy/AdvReac Type Severity Reaction Status Date / Time celecoxib [From Celebrex] Allergy unknown Verified 01/23/24 10:17 tramadol Allergy unknown Verified 01/23/24 10:17 Current Medications Generic Name Dose Route Start Last Admin Trade Name Freq PRN Reason Stop Dose Admin Sodium Chloride 1,000 mls @ 30 mls/hr 01/28/24 06:30 01/28/24 06:26 Sodium Chloride 0.9% IV 01/29/24 06:29 30 mls/hr .Q24H GIANNI Administration PFSH Anesthesia Medical History Upper respiratory infection Otitis media Encounter for laboratory test Otitis media, right Post-cholecystectomy syndrome Mixed hyperlipidemia Lumbar stenosis with neurogenic claudication Chronic anticoagulation Portal vein thrombosis Colitis Allergic sinusitis Vitamin D deficiency COPD (chronic obstructive pulmonary disease) Anxiety and depression Essential hypertension Surgical History History of arthroscopic knee surgery Status post colonoscopy (10/04/21) History of hysterectomy (1996) Hysterectomy with unilateral right oophorectomy S/P cholecystectomy Family History Mother Dementia Hyperlipidemia Grandfather Cancer Grandmother Cancer Other CAD (coronary artery disease) Diabetes Hypertension Denies family history of Clotting disorder Psychiatric illness Chronic kidney disease (CKD) Suicide Anesthesia complication Bleeding disorder Lung disease Stroke Social History Smoking and tobacco/nicotine status: current some day tobacco/nicotine user Second hand smoke exposure: No Alcohol intake: current Alcohol intake frequency: holidays/special occasions only Substance/Drug Use: never Data Anesthesia Cardiac Studies: No Data to Display
[2024-01-28] MEDS: ceFAZolin 2,000 MG in sodium chloride 0.9% (plus) 50 ML 100 MG IV (07:00)
[2024-01-28] MEDS: lidocaine-epi 1% 20 mL INJ INJECTION (07:39)
--- NOTE | 2024-01-28 08:24 | PM.OP ---
Operative Report Date of procedure: January 28, 2024 Pre-op diagnosis: Lumbar stenosis with neurogenic claudication Post-op diagnosis: same Procedure done: 1. L3-4 laminectomy with partial facetectomy 2. L4-5 laminectomy with partial facetectomy Surgeon: Kasi Day DO Estimated blood loss (mL): 10 Procedure: 1. L3-4 laminectomy with partial facetectomy 2. L4-5 laminectomy with partial facetectomy Patient is brought to the operative suite. After undergoing anesthesia they are placed in the prone position. All areas of impingement are well padded. Patient is then prepped and draped in the normal sterile fashion. A skin incision is made over the L3/4 level. This is confirmed under c-arm guidance. A series of dilators are passed and the tubular retractor is docked on the L3 lamina. A bovie is used to clear the soft tissue off the lamina and the L 3/4 facet joint. A high speed nuno is then used to perform the laminectomy and take down the medial aspect of the L 3/4 facet joint. A kerrison rongeure was then used to take down the remaining lamina and smooth the edge of the laminectomy up to the point where the ligamentum flavum attaches. Attention was then brought to the medial aspect of the facet joint. The remaining medial aspect of the superior and inferior aspect of the facet joint were taken down with the kerrison from the pedicle of L3 to L 4. The facet joint had significant hypertrophy. Attention was then brought to the Ligamentum Flavum. The ligament was taken down from the lamina of L3 to L4 and out medially to the remaining facet joint. The ligament was thick. The dura was then exposed. The dura was in good repair. The L3 nerve was then traced with a curette out the L3/4 foramen and found to be adequately decompressed. The L4 nerve was traced with a curette around the L4 pedicle. The lateral recess was opened with a kerrison helping to further decompress the L4 nerve. Wound is then irrigated copiously with saline and surgiflo is used to stop any bleeding. The tubular retractor is removed and the A skin incision is made over the L4/5 level. This is confirmed under c-arm guidance. A series of dilators are passed and the tubular retractor is docked on the L4 lamina. A bovie is used to clear the soft tissue off the lamina and the L 4/5 facet joint. A high speed nuno is then used to perform the laminectomy and take down the medial aspect of the L 4/5 facet joint. A kerrison rongeure was then used to take down the remaining lamina and smooth the edge of the laminectomy up to the point where the ligamentum flavum attaches. Attention was then brought to the medial aspect of the facet joint. The remaining medial aspect of the superior and inferior aspect of the facet joint were taken down with the kerrison from the pedicle of L4 to L 5. The facet joint had significant hypertrophy. Attention was then brought to the Ligamentum Flavum. The ligament was taken down from the lamina of L4 to L5 and out medially to the remaining facet joint. The ligament was thick. The dura was then exposed. The dura was in good repair. The L4 nerve was then traced with a curette out the L4/5 foramen and found to be adequately decompressed. The L5 nerve was traced with a curette around the L5 pedicle. The lateral recess was opened with a kerrison helping to further decompress the L5 nerve. Wound is then irrigated copiously with saline and surgiflo is used to stop any bleeding. The tubular retractor is removed and the wound is closed with vicryl and monocryl suture. Glue is then used to protect the wound. A sterile dressing is then placed. Patient was then placed in the supine position and transferred to the PACU in stable condition.
[2024-01-28] MEDS: fentaNYL 50 mcg/mL INJ 2mL IVP ×2 (08:33→08:42)
[2024-01-28] MEDS: HYDROcodone-acetaminophen 10-325 mg Tablet 1 TAB PO (09:16)
--- NOTE | 2024-01-28 09:26 | W.PM.OPSUD ---
Surgery/Procedure H&P Update DATE OF PROCEDURE: January 28, 2024 DATE H&P PERFORMED: 01/23/24 H&P UPDATE INFORMATION: I have reviewed H&P completed within last 30 days, I have examined patient prior to procedure and No changes to prior documentation PREOP DIAGNOSIS: Lumbar stenosis with neurogenic claudication PLANNED PROCEDURE: Operation Date: 01/28/24 07:00 Proposed Procedures p Lumbar Spine Decompression Lumbar Decompression(Right) - Kasi Day DO
--- NOTE | 2024-01-28 13:53 | XR_ITS ---
WS: [id number] Lumbar spine, C ARM fluoroscopy views, 01/28/2024 Clinical Data: OR pic, decompression Comparison: Lumbar spine, 01/02/2024 Findings: Dr. Day performed a lumbar decompression. Impression: Lumbar decompression.
--- NOTE | 2024-01-28 15:05 | ANE.PACU2 ---
Inpatient post-anesthesia follow up: Vital signs: Temperature 97.1 F Pulse Rate 74 Respiratory Rate 18 Blood Pressure 106/68 Pulse Oximetry 95 Oxygen Delivery Me thod Room Air Oxygen Flow Rate 8 Fraction of Inspir ed Oxygen Hydration adequate: Yes Nausea and vomiting: No Mental status: Baseline Additional Comments: no apparent anesthetic complications noted
== END 2024-01-28 09:38 | disposition home or self-care (01) ==
PROVIDERS: PCP Nurse Practitioner Family; Visit Provider Orthopaedic Surgery
PROC: (CPT 63005; principal; 2024-01-28 07:00)
DX: M48.062 Spinal stenosis, lumbar region with neurogenic claudication (principal); E78.2 Mixed hyperlipidemia; Z79.01 Long term (current) use of anticoagulants; J44.9 Chronic obstructive pulmonary disease, unspecified
CPT/HCPCS: 63047; 63048; 72020; 76000; J0690; J1100; J2405; J2704; J3010; J3490; J7030

== ENCOUNTER → 2024-04-06 08:29 | Outpatient (BNVA) | payer BC, SELFPAY | PROVIDERS: PCP Nurse Practitioner Family; Visit Provider Orthopaedic Surgery | DX: M25.551 Pain in right hip (principal) | CPT/HCPCS: 73502 ==

== ENCOUNTER 2024-05-03 11:01 | Outpatient (CLI) | payer BC, SELFPAY ==
[2024-05-03] MEDS: iohexol 350 mg/mL 500 mL Btl (per mL) IV (12:12)
[2024-05-03] MEDS: iohexol 350 mg/mL 100 mL Btl PO (12:13)
--- NOTE | 2024-05-03 12:30 | CT_ITS ---
WS: [id number] CT ABDOMEN AND PELVIS WITH CONTRAST HISTORY: portal vein thrombosis TECHNIQUE: Imaging performed of the abdomen and pelvis with IV contrast. Single phase imaging of the abdomen. Coronal and sagittal reformats are submitted. All CT scans at [facility] use at [facility] st one of these dose optimization techniques: automated exposure control; mA and/or kV adjustment per patient size (includes targeted exams where dose is matched to clinical indication); or iterative re construction. IV CONTRAST: Omnipaque 350; 100 mL IV. Oral contrast: Yes. DLP: 515.75 mGy.cm COMPARISON: 06/23/2023, 05/23/2022 and 12/11/2021 Lower thorax: Subpleural 3 mm micronodule LEFT lower lobe. No mass or pneumonia. Heart is normal size . No hiatal hernia. Liver/biliary system: Normal size liver. No acute portal vein thrombosis. The RIGHT portal vein is sm all caliber but patent. This is probably the residual of prior portal vein thrombosis. SMV is normal. No mass. Gallbladder: Status post cholecystectomy. Pancreas: Normal size pancreas and pancreatic duct. No adjacent inflammation. Spleen: Normal size spleen. No mass or infarct. Adrenal glands: RIGHT adrenal gland nodule at 9 mm. Probably present on prior studies also but poorly visualized due to its small size. No LEFT adrenal mass. Right kidney: Normal. Left kidney: Normal. Aorta: Mild atherosclerosis with no aneurysm. Mild atherosclerosis celiac axis and SMA. No thrombus o r occlusion. Lymphadenopathy: None. Free fluid: None. GI tract: No obstruction. Normal stomach. No small bowel dilatation. Mild diffuse constipation. Joseline l appendix. Mild distal colonic diverticulosis without acute diverticulitis. Abdominal wall: Unremarkable abdominal wall. No hernia. Pelvis: Normal urinary bladder. Prior hysterectomy. LEFT adnexal calcifications probably related to t he ovary. No change. Bones: Increase in lumbar lordosis. 4 mm anterolisthesis of L5 with bilateral L5 pars defects. CT/CT abdomen pelvis w con* [id number] IMPRESSION: 1. No acute portal vein thrombosis. 2. Small caliber RIGHT portal vein due to treated portal vein thrombosis. Stab le with no acute interval change. 3. Prior hysterectomy and cholecystectomy. 4. Mild constipation. 5. Grade 1 spondylolisthesis of L5 with spondylolysis. 6. Subcentimeter RIGHT adrenal nodule. Described also on a prior exam from 3/2 01/2009.
== END 2024-05-03 11:02 | disposition home or self-care (01) ==
LOC: RAD 11:02
PROVIDERS: PCP Nurse Practitioner Family; Visit Provider Internal Medicine Medical Oncology
DX: I81 Portal vein thrombosis (principal); Z90.710 Acquired absence of both cervix and uterus; Z90.49 Acquired absence of other specified parts of digestive tract; M43.16 Spondylolisthesis, lumbar region; M47.896 Other spondylosis, lumbar region; E27.9 Disorder of adrenal gland, unspecified; M40.56 Lordosis, unspecified, lumbar region
CPT/HCPCS: 74177; Q9967

== ENCOUNTER 2024-05-18 12:49 | Oncology outpatient (recurring) (ONCR) | payer BC, SELFPAY ==
[2024-05-18 13:24] LABS: Basophils # 0.1 10^3/uL (0.0-0.1); Basophils % 0.6 %; Eosinophils # 0.1 10^3/uL (0.0-0.8); Hematocrit 41.2 % (36-47); Lymphocytes # 2.2 10^3/uL (0.8-4.8); Lymphocytes % 27.4 %; Mean Corpuscular HGB Conc 32.8 g/dL (30-55); Mean Corpuscular Hemoglobin 28.2 pg (27-33); Mean Corpuscular Volume 86.2 fl (85-98); Mean Platelet Volume 10.1 fL (7.4-10.4); Monocytes # 0.6 10^3/uL (0.2-0.9); Neutrophils # 5.08 10^3/uL (1.8-7.7); Neutrophils % 63.7 %; Nucleated Red Blood Cells % 0 %; Platelet Count 320 10^3/cmm (157-399); Red Blood Count 4.78 10^6/uL (3.85-5.65); Red Cell Distribution Width 13.1 % (12.1-15.1); White Blood Count 7.98 10^3/uL (3.29-11.43)
[2024-05-18 13:52] LABS: Alanine Aminotransferase 15 U/L (0-33); Albumin Level 4.6 g/dL (3.5-5.2); Alkaline Phosphatase 104 U/L (35-105); Anion Gap 12.6 (5-19); Aspartate Amino Transferase 12 U/L (0-32); Blood Urea Nitrogen 12 mg/dL (6-20); Calcium 9.5 mg/dL (8.5-10.5); Carbon Dioxide 26 mmol/L (22-29); Chloride 105 mmol/L (98-107); Glomerular Filtration Rate 104.2 mL/min (90-130); Glucose 95 mg/dL (65-115); Osmolality Calculated 288 mOsm/kg (285-295); Potassium 4.6 mmol/L (3.5-5.1); Sodium 139 mmol/L (136-145); Total Bilirubin 0.3 mg/dL (0.15-1.2); Total Protein 7.6 g/dL (6.6-8.7)
[2024-05-18 13:53] LABS: D Dimer 0.35 ug/mLFEU (0-0.59)
--- NOTE | 2024-05-20 11:00 | MR_ITS ---
WS: [id number] MRI PELVIS WITHOUT CONTRAST. COMPARISON: Pelvic and RIGHT hip pain, post lumbar laminectomy. Multiplanar, multisequence imaging is performed without contrast. No acute marrow edema. Mild narrowing of the hip joints. Neither labrum is very well visualized invol ving the hip joints. There is no joint effusion. There is a very small amount of reactive marrow edema in the LEFT sacrum. Recent postsurgical changes are noted posterior to the L4-5 disc level. There is edema persistent within the RIGHT erector spina e muscles at the level of L4 through the mid sacrum. Edema appears separate from the region of the sc iatic nerve. MR/MR pelvis wo con* [id number] IMPRESSION: 1. No marrow edema or fracture. No joint effusion. 2. RIGHT erector spinae muscle edema from L4 to the mid sacrum. Postoperative edema is contiguous with the laminectomy defect at L4-5. No large fluid collect ion.
== END 2024-05-23 23:59 | disposition home or self-care (01) ==
LOC: ONCMED 05-20 10:15 → RAD 05-20 10:15 → ONCMED 05-20 10:15
PROVIDERS: Internal Medicine Medical Oncology; PCP Nurse Practitioner Family; Visit Provider Orthopaedic Surgery
DX: Z53.9 Procedure and treatment not carried out, unspecified reason (principal); M25.551 Pain in right hip
CPT/HCPCS: 36415; 72195; 80053; 85025; 85378

== ENCOUNTER → 2024-07-06 08:52 | Outpatient (BNVA) | payer BC, SELFPAY | PROVIDERS: PCP Nurse Practitioner Family; Visit Provider Student in an Organized Health Care Education/Training Program | DX: M70.61 Trochanteric bursitis, right hip (principal); Z71.89 Other specified counseling | CPT/HCPCS: 73522 ==

== ENCOUNTER 2024-08-30 11:50 | Outpatient (CLI) | payer BC, SELFPAY ==
--- NOTE | 2024-08-30 11:52 | XR_ITS ---
WS: [id number] XR ribs LT mn 3V w CXR1V [id number] REASON FOR EXAM: S29.9XXA - Unspecified injury of thorax, initial encounter FINDINGS: No fracture or focal bone lesion identified. Left lung and pleura are unremarkable. XR/XR ribs LT mn 3V w CXR1V [id number] IMPRESSION: No acute abnormality.
== END 2024-08-30 11:51 | disposition home or self-care (01) ==
LOC: RAD 11:50
PROVIDERS: PCP Nurse Practitioner Family; Visit Provider Nurse Practitioner Family
DX: S29.9XXA Unspecified injury of thorax, initial encounter (principal); X58.XXXA Exposure to other specified factors, initial encounter
CPT/HCPCS: 71101

== ENCOUNTER → 2024-10-05 16:37 | Outpatient (BNVA) | payer BC, SELFPAY | PROVIDERS: PCP Nurse Practitioner Family; Visit Provider Nurse Practitioner Family | DX: J06.9 Acute upper respiratory infection, unspecified (principal) | CPT/HCPCS: 87426 ==

== ENCOUNTER → 2024-11-25 09:01 | Outpatient (BNVA) | payer BC, SELFPAY | PROVIDERS: PCP Nurse Practitioner Family; Visit Provider Nurse Practitioner Family | DX: I10 Essential (primary) hypertension (principal); E78.2 Mixed hyperlipidemia; E66.09 Other obesity due to excess calories; E55.9 Vitamin D deficiency, unspecified | CPT/HCPCS: 80053; 80061; 81003; 82306; 83036; 84443; 85025 ==

== ENCOUNTER → 2024-12-29 14:28 | Outpatient (BNVA) | payer BC, SELFPAY | PROVIDERS: PCP Nurse Practitioner Family; Visit Provider Physician Assistant | DX: M25.551 Pain in right hip (principal); M70.61 Trochanteric bursitis, right hip | CPT/HCPCS: 73502 ==

== ENCOUNTER 2025-01-19 16:05 | Inpatient (IN) | payer BC, MEDICAID, SELFPAY ==
[2025-01-19 16:18] VITALS: BP 148/85; PULSE 89; RESP 17; TEMP 36.6; O2SAT 99; BMI 26.8
--- NOTE | 2025-01-19 17:02 | CTR_ITS ---
PROCEDURE INFORMATION: Exam: CT Abdomen And Pelvis With Contrast Exam date and time: 01/19/2025 5:30 PM Age: 54 years old Clinical indication: Abdominal pain; Generalized; Prior surgery; Surgery date: 6+ months; Surgery type: Gb; Additional info: Abd pain TECHNIQUE: Imaging protocol: Computed tomography of the abdomen and pelvis with contrast. Radiation optimization: All CT scans at this facility use at least one of these dose optimization techniques: automated exposure control; mA and/or kV adjustment per patient size (includes targeted exams where dose is matched to clinical indication); or iterative reconstruction. Contrast material: OMNIPAQUE 350; Contrast volume: 100 ml; Contrast route: INTRAVENOUS (IV); COMPARISON: MR pelvis wo con* [id number] 05/20/2024 10:48 AM RADIATION DOSE METRICS: Total DLP (mGy-cm): 615.33 FINDINGS: Liver: Interval development of mild intrahepatic biliary dilatation. Gallbladder and biliary ducts: The gallbladder is surgically absent. There has been interval development of some increased intrahepatic biliary dilatation. Stable area of focal fatty infiltration adjacent to the falciform ligament . Mild extrahepatic biliary dilatation again seen likely on the basis of the post cholecystectomy state. Pancreas: Normal. No ductal dilation. Spleen: Calcified splenic granulomas. Otherwise the spleen is unremarkable. Adrenal glands: Stable right adrenal gland subcentimeter nodule. Kidneys and ureters: Normal. No hydronephrosis. Stomach and bowel: Mildly prominent scattered small bowel loops without evidence of high-grade mechanical bowel obstruction. Appendix: No evidence of appendicitis. Intraperitoneal space: Unremarkable. No free air. No significant fluid collection. Vasculature: Similar small right portal vein due to prior treatment of portal vein thrombosis. Lymph nodes: Unremarkable. No enlarged lymph nodes. Urinary bladder: Unremarkable as visualized. Reproductive: Unremarkable as visualized. Bones/joints: Grade 1 anterolisthesis of L5 on S1. Soft tissues: Unremarkable. CT/CT abdomen pelvis w con* [id number] IMPRESSION: 1. There has been interval development of mild intrahepatic biliary dilatation without a definitive obstructing cause. Can not exclude occult obstructing lesion. The patient can benefit from a follow-up MRI abdomen with and without contrast including MRCP sequences. 2. Mildly prominent scattered fluid-filled loops of small bowel without evidence of high-grade mechanical bowel obstruction. Findings may relate to some mild enteritis. 3. Additional incidental/chronic findings as above.
--- NOTE | 2025-01-19 17:03 | ED_ITS ---
HPI - Abdominal Pain 2 General: Chief Complaint: Abdominal Pain Stated Complaint: abd/rib pain Time Seen by Provider: 01/19/25 16:55 Source: patient Mode of arrival: ambulatory Limitations: no limitations History of Present Illness: 54-year-old female who states she is bee n having upper abdominal pain across her abdomen and left side for the last 2 days. She states she had a history of colitis she had a portal vein thrombosis in the past as well as on Eliquis for that. States pains been sharp in nature rates today 7 out of 10 she denies any vomiting diarrhea denies any fevers she denies any worse improving factors. Associated Symptoms: Denies chills, diarrhea and fever(s) Related Data Home Medications ?Medication ?Instructions ?Recorded ?Confirmed omeprazole magnesium 20 mg 20 mg PO DAILY 07/26/21 tablet,delayed release (Prilosec OTC) furosemide 80 mg tablet 80 mg PO PRN PRN swelling 01/14/25 Previous Rx's ?Medication ?Instructions ?Recorded [id number] See Rx Instructions .Route 1 11/27/23 40,000-126,000-168,000 unit .COMPLEX #120 caps capsule, delay rel (Zenpep) amlodipine 5 mg tablet See Rx Instructions .Route 1 12/06/23 .COMPLEX #30 tabs lisinopril 40 mg tablet See Rx Instructions .Route 1 01/09/24 .COMPLEX #90 tabs phentermine 37.5 mg tablet 37.5 mg PO DAILY 30 days #3 0 tabs 12/28/24 meloxicam 15 mg tablet See Rx Instructions .Route 0 01/04/25 .COMPLEX #30 tabs alprazolam 0.25 mg tablet 0.125 mg (1/2 x 0.25 mg) PO BID 01/14/25 PRN anxiety #30 tabs venlafaxine 37.5 mg 37.5 mg PO DAILY 30 days #30 caps 01/14/25 capsule,extended release 24 hr (Effexor XR) hydrocodone 5 mg-acetaminophen 325 1 tab PO Q6H PRN pa in #14 tabs 01/19/25 mg tablet ondansetron 4 mg disintegrating 4 mg PO Q6H PRN nausea and 01/19/25 tablet vomiting #14 tabs Allergies Allergy/AdvReac Type Severity Reaction Status Date / Time celecoxib (From Celebrex) Allergy unknown Verified 01/19/25 16:20 paroxetine (From Paxil) Allergy ADR-Hyperte Verified 01/19/25 16:20 nsion tramadol Allergy unknown Verified 01/19/25 16:20 escitalopram AdvReac Mild ADR-Diarrhe Verified 01/19/25 16:20 a Review of Systems 2 Const: Denies: fever(s), chills, body aches or change in appetite ENMT: Denies: throat pain or dental pain Card: Denies: chest pain Resp: Denies: dyspnea GI: Reports: abdominal pain; Denies: diarrhea Musc: Denies: neck pain or back pain Skin/Breast: Denies: rash PFSH ED 2 PFSH: Medical History Skin lesion of face Otitis media Upper respiratory infection Anxiety Traumatic injury of rib Spondylolisthesis at L5-S1 level Breast cancer screening by mammogram Callus of foot (~10/23/23) Bone spur of foot Encounter for laboratory test Otitis media, right Post-cholecystectomy syndrome Mixed hyperlipidemia Lumbar stenosis with neurogenic claudication Chronic anticoagulation Portal vein thrombosis Colitis Allergic sinusitis Vitamin D deficiency COPD (chronic obstructive pulmonary disease) Anxiety and depression Essential hypertension Surgical History Status post lumbar laminectomy History of arthroscopic knee surgery Status post colonoscopy (10/04/21) History of hysterectomy (1996) Hysterectomy with unilateral right oophorectomy S/P cholecystectomy Family History Mother Dementia Hyperlipidemia Grandfather Cancer Grandmother Cancer Other CAD (coronary artery disease) Diabetes Hypertension Denies family history of Clotting disorder Psychiatric illness Chronic kidney disease (CKD) Suicide Anesthesia complication Bleeding disorder Lung disease Stroke Social History Smoking and tobacco/nicotine status: former use of tobacco/nicotine Second hand smoke exposure: No Alcohol intake: current Alcohol intake frequency: holidays/special occasions only Substance/Drug Use: never Physical Exam 2 Const: COMMON NORMALS: no acute distress, patient oriented x3 and healthy appearing HENMT: COMMON NORMALS: normocephalic and atraumatic HEAD & SCALP: n ormocephalic and atraumatic Eye: COMMON NORMALS: conjunctivae normal CONJUNCTIVA: Yes conjunctivae normal Neck/C-Spine: COMMON NORMALS: full ROM and supple Chest: COMMONS NORMALS: normal inspection of the chest Resp: COMMON NORMALS: normal respiratory effort, No retractions, No use of accessory muscles and clear to auscultation bilaterally AUSCULTATION: clear to auscultation bilaterally Cardio: COMMON NORMALS: regular rate, regular rhythm and No murmurs present (Cardio) RATE: regular rate RHYTHM: regular rhythm GI: COMMON NORMALS: Normal to inspection, nondistended, normoactive bowel sounds present, Soft to palpation and no masses PALPATION: Yes Soft to palpation OTHER: luq tendernesss Extremity: COMMON NORMALS: normal to inspection and full ROM Neuro: COMMON NORMALS: patient oriented x3, moves all extremities and no focal motor deficits Psych: COMMON NORMALS: mental status grossly normal, Normal thought process present and cooperative THOUGHT PROCESS: Normal thought process present Skin: COMMON NORMALS: no rashes or lesions noted and no wounds GENERAL SKIN EXAM: no rashes or lesions noted Course 2 Vital Signs: Vital signs: Vital Signs Temperature 98 F 01/19/25 16:18 Pulse Rate 89 01/19/25 16:18 Respiratory Rate 17 01/19/25 16:18 Blood Pressure 148/85 01/19/25 16:18 Pulse Oximetry 94 01/19/25 17:45 Oxygen Delivery Me thod Room Air 01/19/25 16:18 MDM - Abdominal Pain Medical Decision Making Patient presents here with abdominal pain has been her upper abdomen I did inform of the CT findings of a mild intrahepatic dilatation her bilirubin here is normal as of mild elevation of her liver enzymes her pain is much improved inform her she is to get a follow-up with her PCP and have an outpatient MRCP I informed her she is to return if her pain worsens she understands agrees to plan. Medical Records I reviewed the patient's medical records. Lab Data I reviewed the patient's lab results. 01/19/25 17:11 01/19/25 17:11 Labs/Radiology: Radiology Impressions Abdomen/Pelvis CT 01/19/25 17:02 IMPRESSION: 1. There has been interval development of mild intrahepatic biliary dilatation without a definitive obstructing cause. Can not exclude occult obstructing lesion. The patient can benefit from a follow-up MRI abdomen with and without contrast including MRCP sequences. 2. Mildly prominent scattered fluid-filled loops of small bowel without evidence of high-grade mechanical bowel obstruction. Findings may relate to some mild enteritis. 3. Additional incidental/chronic findings as above. Laboratory Results WBC 8.61 10^3/uL (3.29-11.43) 01/19/25 17:11 RBC 4.69 10^6/uL (3.85-5.65) 01/19/25 17:11 Hgb 13.20 g/dL (11.27-16.99) 01/19/25 17:11 Hct 40.0 % (36-47) 01/19/25 17:11 MCV 85.3 fl (85-98) 01/19/25 17:11 MCH 28.1 pg (27-33) 01/19/25 17:11 MCHC 33.0 g/dL (30-55) 01/19/25 17:11 RDW 13.7 % (12.1-15.1) 01/19/25 17:11 Plt Count 308 10^3/cmm (157-399) 01/19/25 17:11 MPV 9.6 fL (7.4-10.4) 01/19/25 17:11 Neut % (Auto) 66.7 % 01/19/25 17:11 Lymph % (Auto) 23.7 % 01/19/25 17:11 [place] % (Auto) 8.0 % 01/19/25 17:11 Eos % (Auto) 0.9 % 01/19/25 17:11 Baso % (Auto) 0.5 % 01/19/25 17:11 Neut # (Auto) 5.74 10^3/uL (1.8-7.7) 01/19/25 17:11 Lymph # (Auto) 2.0 10^3/uL (0.8-4.8) 01/19/25 17:11 [place] # (Auto) 0.7 10^3/uL (0.2-0.9) 01/19/25 17:11 Eos # (Auto) 0.1 10^3/uL (0.0-0.8) 01/19/25 17:11 Baso # (Auto) 0.0 10^3/uL (0.0-0.1) 01/19/25 17:11 Nucleated RBC % (auto) 0 % 01/19/25 17:11 Nucleated RBCs # 0.0 /100WBC 01/19/25 17:11 PT 13.60 SECONDS (12.1-14.9) 01/19/25 17:11 INR 0.97 (0.8-1.2) 01/19/25 17:11 Sodium 136 mmol/L (136-145) 01/19/25 17:11 Potassium 4.2 mmol/L (3.5-5.1) 01/19/25 17:11 Chloride 103 mmol/L (98-107) 01/19/25 17:11 Carbon Dioxide 24 mmol/L (22-29) 01/19/25 17:11 Anion Gap 13.2 (5-19) 01/19/25 17:11 BUN 12 mg/dL (6-20) 01/19/25 17:11 Creatinine 0.6 mg/dL (0.5-0.9) 01/19/25 17:11 GFR Calculation 103.8 mL/min (90-130) 01/19/25 17:11 Glucose 101 mg/dL (65-115) 01/19/25 17:11 Calculated Osmolality 282 mOsm/kg (285-295) L 01/19/25 17:11 Calcium 9.1 mg/dL (8.5-10.5) 01/19/25 17:11 Total Bilirubin 0.6 mg/dL (0.15-1.2) 01/19/25 17:11 AST 245 U/L (0-32) H 01/19/25 17:11 ALT 201 U/L (0-33) H 01/19/25 17:11 Alkaline Phosphatase 131 U/L (35-105) H 01/19/25 17:11 Total Protein 6.7 g/dL (6.6-8.7) 01/19/25 17:11 Albumin 4.3 g/dL (3.5-5.2) 01/19/25 17:11 Globulin 2.4 g/dL (1.3-4.6) 01/19/25 17:11 Lipase 900 U/L (13-60) H 01/19/25 17:11 Urine Color Yellow (Yellow) 01/19/25 17:27 Urine Appearance Clear (CLEAR) 01/19/25 17:27 Urine pH 6.0 (5-7) 01/19/25 17:27 Ur Specific [place] 1.005 (1.005-1.030) 01/19/25 17: Urine Protein Negative (Negative) 01/19/25 17: Urine Glucose (UA) Negative (Normal) 01/19/25 17: Urine Ketones Negative (Negative) 01/19/25 17: Urine Blood Negative (Negative) 01/19/25 17: Urine Nitrate Negative (Negative) 01/19/25 17: Urine Bilirubin Negative (Negative) 01/19/25 17: Urine Urobilinogen 1.0 mg/dL (Negative) 01/19/25 17: Ur Leukocyte Esterase Negative (Negative) 01/19/25 17: Amorphous Sediment Not Reportable 01/19/25 17: All radiology interpretation(s) finalized by discharge Discharge Plan Discharge Patient Disposition: Home Clinical Impression: Abdominal pain Qualifiers: Abdominal location: generalized Qualified Code(s): R10.84 - Generalized abdominal pain Condition: Stable Prescriptions: New hydrocodone-acetaminophen 5-325 mg tablet 1 tab PO Q6H PRN (Reason: pain) Qty: 14 0RF ondansetron 4 mg tablet,disintegrating 4 mg PO Q6H PRN (Reason: nausea and vomiting) Qty: 14 0RF No Action venlafaxine [Effexor XR] 37.5 mg capsule,extended release 24hr 37.5 mg PO DAILY 30 Days Qty: 30 0RF alprazolam 0.25 mg tablet 0.125 mg PO BID PRN (Reason: anxiety) Qty: 30 0RF phentermine 37.5 mg tablet 37.5 mg PO DAILY 30 Days Qty: 30 0RF Rx Instructions: must administer 30 minutes before or 1-2 hours after breakfast Zenpep 40,000-126,000- 168,000 unit capsule,delayed release(DR/EC) See Rx Instructions .ROUTE .COMPLEX Qty: 120 1RF Dose Instruction: TAKE 1 CAPSULE BY MOUTH 4 TIMES DAILY FOR 30 DAYS ,TAKE WITH MEALS AND / OR SNACKS Rx Instructions: TAKE 1 CAPSULE BY MOUTH 4 TIMES DAILY FOR 30 DAYS ,TAKE WITH MEALS AND / OR SNACKS amlodipine 5 mg tablet See Rx Instructions .ROUTE .COMPLEX Qty: 30 5RF Dose Instruction: TAKE 1/2 TABLET (2.5 MG) BY MOUTH DAILY. INCREASE TO 1 TABLET (5 MG) DAILY IF NEEDED FOR BLOOD PRESSURE CONTROL Rx Instructions: TAKE 1/2 TABLET (2.5 MG) BY MOUTH DAILY. INCREASE TO 1 TABLET (5 MG) DAILY IF NEEDED FOR BLOOD PRESSURE CONTROL lisinopril 40 mg tablet See Rx Instructions .ROUTE .COMPLEX Qty: 90 0RF Dose Instruction: Take 1 tablet by mouth once daily Rx Instructions: Take 1 tablet by mouth once daily meloxicam 15 mg tablet See Rx Instructions .ROUTE .COMPLEX Qty: 30 0RF Dose Instruction: Take 1 tablet by mouth once daily Rx Instructions: Take 1 tablet by mouth once daily omeprazole magnesium [Prilosec OTC] 20 mg Tablet,Delayed Release (Dr/Ec) 20 mg PO DAILY furosemide 80 mg tablet 80 mg PO PRN PRN (Reason: swelling) Rx Instructions: TAKE 1 TABLET BY MOUTH ONCE DAILY NEEDED FOR EDEMA. TAKE ONE-FOURTH OF A TABLET DAILY NEEDED. CAN TITRATE UP IF NEEDED. Discharge Orders: Discharge ED (Routine); Ordered 01/19/25 Ordered By: Ean Gomez Referrals: CADE Bean, ELECTROCARDIOGRAPH TECHNICIAN [Primary Care Provider] - 4-7 days Discharge Diet: Advance as tolerated Discharge Activity: Resume usual activity Patient Instructions: Abdominal Pain (ED), Opioid Safety Print Language: Yi Coding Level of Care Code ED [employer] for Kimberly Fine
[2025-01-19 17:21] LABS: Basophils % 0.5 %; Eosinophils # 0.1 10^3/uL (0.0-0.8); Eosinophils % 0.9 %; Lymphocytes % 23.7 %; Mean Corpuscular Hemoglobin 28.1 pg (27-33); Mean Corpuscular Volume 85.3 fl (85-98); Mean Platelet Volume 9.6 fL (7.4-10.4); Monocytes # 0.7 10^3/uL (0.2-0.9); Neutrophils # 5.74 10^3/uL (1.8-7.7); Neutrophils % 66.7 %; Nucleated Red Blood Cells % 0 %; Platelet Count 308 10^3/cmm (157-399); Red Blood Count 4.69 10^6/uL (3.85-5.65); Red Cell Distribution Width 13.7 % (12.1-15.1); White Blood Count 8.61 10^3/uL (3.29-11.43)
[2025-01-19] MEDS: ondansetron 2 mg/ML SDV 2 mL 4 MG IVP (17:31)
[2025-01-19] MEDS: HYDROMORPHONE HCL 0.5 MG/0.5 ML INJ IVP ×2 (17:31→21:18)
[2025-01-19] MEDS: iohexol 350 mg/mL 500 mL Btl (per mL) IV (17:32)
[2025-01-19 17:33] LABS: INR 0.97 (0.8-1.2)
[2025-01-19 17:45] VITALS: O2SAT 94
[2025-01-19 17:46] LABS: Add Urine Microscopic? NO
[2025-01-19 17:54] LABS: Bilirubin Urine Negative (Negative); Blood Urine Negative (Negative); Glucose Urine UA Negative (Normal); Ketones Urine Negative (Negative); Leukocyte Esterase Urine Negative (Negative); Nitrate Urine Negative (Negative); Protein Urine Negative (Negative); Specific Gravity, Urine 1.005 (1.005-1.030); Urine Appearance Clear (CLEAR); Urine Color Yellow (Yellow)
[2025-01-19 17:58] LABS: Alanine Aminotransferase 201 U/L (0-33); Albumin Level 4.3 g/dL (3.5-5.2); Alkaline Phosphatase 131 U/L (35-105); Anion Gap 13.2 (5-19); Aspartate Amino Transferase 245 U/L (0-32); Blood Urea Nitrogen 12 mg/dL (6-20); Calcium 9.1 mg/dL (8.5-10.5); Carbon Dioxide 24 mmol/L (22-29); Chloride 103 mmol/L (98-107); Creatinine Clr Calc Pharmacy 106.0523; Globulin 2.4 g/dL (1.3-4.6); Glomerular Filtration Rate 103.8 mL/min (90-130); Glucose 101 mg/dL (65-115); Osmolality Calculated 282 mOsm/kg (285-295); Potassium 4.2 mmol/L (3.5-5.1); Sodium 136 mmol/L (136-145); Total Bilirubin 0.6 mg/dL (0.15-1.2); Total Protein 6.7 g/dL (6.6-8.7)
[2025-01-19 18:05] VITALS: BP 149/88; O2SAT 93
[2025-01-19 18:07] LABS: Lipase 900 U/L (13-60)
[2025-01-19 18:10] LABS: Charge for UA Resulting for Rev
--- NOTE | 2025-01-19 18:13 | USR_ITS ---
PROCEDURE INFORMATION: Exam: US Abdomen, Limited; Right Upper Quadrant Exam date and time: 01/19/2025 6:21 PM Age: 54 years old Clinical indication: Abnormal findings; Abnormal lab test; Other: Lipase; Additional info: Abd pain. Pancreatitis TECHNIQUE: Imaging protocol: Real time ultrasound of the abdomen with image documentation. Limited exam focused on the right upper quadrant. COMPARISON: CT abdomen pelvis w con* [id number] 01/19/2025 5:30 PM FINDINGS: Liver: Normal. No masses. Gallbladder: The gallbladder is surgically absent. Biliary ducts: Normal. No stones. No dilation. Pancreas: Visualized pancreas is unremarkable. Right kidney: Normal. No mass. No hydronephrosis. Spleen: The spleen was not diagnostically imaged. US/US gall bladder [id number] IMPRESSION: As above.
[2025-01-19 18:30] VITALS: BP 149/88
--- NOTE | 2025-01-19 18:39 | P.HP_ITS ---
Providers/Chief Complaint 2 Admitting Physician: Jaime Sanders MD Primary Care Provider: MOODY Mckinney Chief Complaint: abd/rib pain History of Present Illness Padmini Rothman is a 54 year old female with a past medical history of portal vein thrombosis on Xarelto, hypertension hyperlipidemia, history of cholecystectomy, history of back surgery, who presents [facility] due to abdominal pain. Patient reports that for the last 24 hours, she has had pain in the left upper quadrant, radiating to the right upper quadrant, associate with diarrhea, no fevers, no chills, no nausea, no vomiting, does report a poor appetite, does report diarrhea but no blood or black stools. She tells me that she has been on steroids recently, for her hip, also received a steroid injection. She is also on phentermine. Denies any trauma. Denies any personal family history of cholangiocarcinoma. She is taking her Xarelto as prescribed. She continues to have abdominal pain, poor appetite, feeling unwell so she came to the emergency room Review of Systems 2 Const: Denies: fever(s) Card: Denies: chest pain Resp: Denies: dyspnea GI: Reports: abdominal pain; Denies: nausea or vomiting Medications/Allergies Home Medications ?Medication ?Instructions ?Recorded ?Confirmed ?Last Taken ?Type omeprazole magnesium 20 mg 20 mg PO DAILY 07/26/2101/28/24 History tablet,delayed release (Prilosec OTC) furosemide 80 mg tablet 80 mg PO PRN PRN swelling 01/14/25 Unknown History [id number] See Rx Instructions .Route 1 11/27/23 01/14/25 Unknown Rx 40,000-126,000-168,000 unit .COMPLEX #120 caps capsule, delay rel (Zenpep) amlodipine 5 mg tablet See Rx Instructions .Route 1 12/06/23 01/14/25 Unknown Rx .COMPLEX #30 tabs lisinopril 40 mg tablet See Rx Instructions .Route 1 01/09/24 01/14/25 Unknown Rx .COMPLEX #90 tabs phentermine 37.5 mg tablet 37.5 mg PO DAILY 30 days #3 0 tabs 12/28/24 01/14/25 Unknown Rx meloxicam 15 mg tablet See Rx Instructions .Route 0 01/04/25 01/14/25 Unknown Rx .COMPLEX #30 tabs alprazolam 0.25 mg tablet 0.125 mg (1/2 x 0.25 mg) PO BID 01/14/25 01/14/25 Unknown Rx PRN anxiety #30 tabs venlafaxine 37.5 mg 37.5 mg PO DAILY 30 days #30 caps 01/14/25 01/14/25 Unknown Rx capsule,extended release 24 hr (Effexor XR) hydrocodone 5 mg-acetaminophen 325 1 tab PO Q6H PRN pa in #14 tabs 01/19/25 Unknown Rx mg tablet ondansetron 4 mg disintegrating 4 mg PO Q6H PRN nausea and 01/19/25 Unknown Rx tablet vomiting #14 tabs Allergies Allergy/AdvReac Type Severity Reaction Status Date / Time celecoxib (From Celebrex) Allergy unknown Verified 01/19/25 16:20 paroxetine (From Paxil) Allergy ADR-Hyperte Verified 01/19/25 16:20 nsion tramadol Allergy unknown Verified 01/19/25 16:20 escitalopram AdvReac Mild ADR-Diarrhe Verified 01/19/25 16:20 a PFSH Acute 2 PFSH: Medical History Skin lesion of face Otitis media Upper respiratory infection Anxiety Traumatic injury of rib Spondylolisthesis at L5-S1 level Breast cancer screening by mammogram Callus of foot (~10/23/23) Bone spur of foot Encounter for laboratory test Otitis media, right Post-cholecystectomy syndrome Mixed hyperlipidemia Lumbar stenosis with neurogenic claudication Chronic anticoagulation Portal vein thrombosis Colitis Allergic sinusitis Vitamin D deficiency COPD (chronic obstructive pulmonary disease) Anxiety and depression Essential hypertension Surgical History Status post lumbar laminectomy History of arthroscopic knee surgery Status post colonoscopy (10/04/21) History of hysterectomy (1996) Hysterectomy with unilateral right oophorectomy S/P cholecystectomy Family History Mother Dementia Hyperlipidemia Grandfather Cancer Grandmother Cancer Other CAD (coronary artery disease) Diabetes Hypertension Denies family history of Clotting disorder Psychiatric illness Chronic kidney disease (CKD) Suicide Anesthesia complication Bleeding disorder Lung disease Stroke Social History Smoking and tobacco/nicotine status: former use of tobacco/nicotine Second hand smoke exposure: No Alcohol intake: current Alcohol intake frequency: holidays/special occasions only Substance/Drug Use: never Vitals/I&O/Wt Last Vital Signs Temp 98 F 01/19/25 16:18 Pulse 89 01/19/25 16:18 Resp 17 01/19/25 16:18 BP 148/85 01/19/25 16:18 Pulse Ox 94 01/19/25 17:45 O2 Del Method Room Air 01/19/25 16:18 Weight last 48 hrs Weight 73.028 kg Physical Exam 2 Const: COMMON NORMALS: no acute distress and patient oriented x3 Eye: COMMON NORMALS: Equal, round and reactive pupils present Resp: COMMON NORMALS: normal respiratory effort, No retractions, No use of accessory muscles and clear to auscultation bilaterally AUSCULTATION: clear to auscultation bilaterally Cardio: COMMON NORMALS: no JVD, regular rate, regular rhythm, S1 normal heart sound present and S2 normal heart sound present RATE: regular rate RHYTHM: regular rhythm HEART SOUNDS: S1 normal heart sound present and S2 normal heart sound present GI: COMMON NORMALS: Normal to inspection, nondistended, normoactive bowel sounds present and Soft to palpation OTHER: Tender left upper quadrant, right upper quadrant Extremity: COMMON NORMALS: no pedal edema Neuro: COMMON NORMALS: patient oriented x3, CN's II-XII intact bilaterally and moves all extremities Psych: COMMON NORMALS: mental status grossly normal Data 01/19/25 17:11 01/19/25 17:11 A&P Assessment and plan (1) Acute pancreatitis: (2) Transaminitis: Plan Acute pancreatitis -With transaminitis -Status post cholecystectomy -CT scan abdomen pelvis CT/CT abdomen pelvis w con* [id number] IMPRESSION: 1. There has been interval development of mild intrahepatic biliary dilatation without a definitive obstructing cause. Can not exclude occult obstructing lesion. The patient can benefit from a follow-up MRI abdomen with and without contrast including MRCP sequences. 2. Mildly prominent scattered fluid-filled loops of small bowel without evidence of high-grade mechanical bowel obstruction. Findings may relate to some mild enteritis. 3. Additional incidental/chronic findings as above. Gallbladder ultrasound FINDINGS: Liver: Normal. No masses. Gallbladder: The gallbladder is surgically absent. Biliary ducts: Normal. No stones. No dilation. Pancreas: Visualized pancreas is unremarkable. Right kidney: Normal. No mass. No hydronephrosis. Spleen: The spleen was not diagnostically imaged. -No significant hyperbilirubinemia -Potentially related to steroid use Plan -Clear liquids -IV fluids -Dilaudid for pain control -Zofran, Reglan for nausea vomiting -Serial abdominal exams -Full code -Xarelto for DVT prophylaxis History of portal vein thrombosis, continue Xarelto PDMP PDMP Reviewed: Not Reviewed Attestations 2 Medical Necessity Statement*: Patient requires hospitalization, inpatient, greater than 2 midnights, for acute pancreatitis, transaminitis Diagnoses Acute pancreatitis K85.90 Transaminitis R74.01
[2025-01-19] MEDS: sodium chloride 0.9% 1,000 ML 999 ML IV (18:45)
[2025-01-19 19:14] LABS: Gamma Glutamyl Transferase 74 U/L (5-36)
[2025-01-19 19:22] LABS: Procalcitonin 0.06 ng/mL (0-0.5)
[2025-01-19] MEDS: amlodipine 5 mg Tablet 2.5 MG PO (19:24)
[2025-01-19] MEDS: sodium chloride 0.9% 1,000 ML 125 ML IV (19:25)
[2025-01-19] MEDS: pantoprazole 40 mg SDV IVP (19:25)
[2025-01-19 20:00] VITALS: BP 137/86; PULSE 79; RESP 18; O2SAT 98
[2025-01-19 21:00] VITALS: BP 138/81; PULSE 78; RESP 16; O2SAT 94
[2025-01-20] VITALS: BP 129/78; BP 129/84; PULSE 74; PULSE 79; RESP 16; RESP 18; O2SAT 98; O2SAT 99
[2025-01-20 02:33] VITALS: BP 124/83; PULSE 68; O2SAT 94
[2025-01-20 03:03] VITALS: BMI 27.4
[2025-01-20] MEDS: acetaminophen 325 mg Tablet 650 MG PO (03:17)
[2025-01-20 03:32] VITALS: BP 128/75; PULSE 64; RESP 18; TEMP 36.4; O2SAT 97
[2025-01-20 05:00] LABS: Basophils % 0.6 %; Eosinophils # 0.1 10^3/uL (0.0-0.8); Eosinophils % 1.8 %; Hematocrit 34.8 % (36-47); Lymphocytes # 1.5 10^3/uL (0.8-4.8); Lymphocytes % 24.2 %; Mean Corpuscular HGB Conc 33.3 g/dL (30-55); Mean Corpuscular Hemoglobin 28.9 pg (27-33); Mean Corpuscular Volume 86.8 fl (85-98); Mean Platelet Volume 9.6 fL (7.4-10.4); Monocytes # 0.5 10^3/uL (0.2-0.9); Monocytes % 8.4 %; Neutrophils % 64.5 %; Nucleated Red Blood Cells % 0 %; Platelet Count 251 10^3/cmm (157-399); Red Blood Count 4.01 10^6/uL (3.85-5.65); Red Cell Distribution Width 13.9 % (12.1-15.1)
[2025-01-20 05:13] LABS: INR 0.92 (0.8-1.2)
[2025-01-20 05:15] LABS: Estmated Average Glucose 100; Hemoglobin A1C 5.1 % (4.0-6.0)
[2025-01-20 05:23] LABS: Chol HDL Ratio 2.39 mg/dL (0.0-4.40); Cholesterol 177 mg/dL (0-200); HDL Cholesterol 74 mg/dL (60-100); LDL Cholesterol Calculated 93 mg/dL (50-129); LDL HDL Ratio 1.26 RATIO (0.00-3.22); Lactic Sepsis W/Reflex 0.5 mmol/L (0.5-2.2); Triglycerides 51 mg/dL (0-150)
[2025-01-20 05:28] LABS: Alanine Aminotransferase 230 U/L (0-33); Albumin Level 3.5 g/dL (3.5-5.2); Alkaline Phosphatase 117 U/L (35-105); Anion Gap 10.7 (5-19); Aspartate Amino Transferase 182 U/L (0-32); Blood Urea Nitrogen 10 mg/dL (6-20); Calcium 8.2 mg/dL (8.5-10.5); Carbon Dioxide 23 mmol/L (22-29); Chloride 108 mmol/L (98-107); Creatinine Clr Calc Pharmacy 129.2296; Globulin 2.2 g/dL (1.3-4.6); Glomerular Filtration Rate 128.1 mL/min (90-130); Glucose 101 mg/dL (65-115); Magnesium 2.1 mg/dL (1.7-2.3); Osmolality Calculated 285 mOsm/kg (285-295); Phosphorus 3.1 mg/dL (2.5-4.5); Potassium 3.7 mmol/L (3.5-5.1); Sodium 138 mmol/L (136-145); Thyroid Stimulating Hormone 0.54 uIU/mL (0.27-4.20); Total Bilirubin 0.3 mg/dL (0.15-1.2); Total Protein 5.7 g/dL (6.6-8.7)
[2025-01-20] MEDS: sodium chloride 0.9% 1,000 ML 125 ML IV (07:50)
[2025-01-20] MEDS: rivaroxaban 10 mg Tablet PO (07:50)
[2025-01-20] MEDS: pantoprazole 40 mg SDV IVP (07:51)
[2025-01-20] MEDS: amlodipine 5 mg Tablet 2.5 MG PO (07:51)
[2025-01-20 08:13] VITALS: BP 134/86; PULSE 58; RESP 16; TEMP 36.3; O2SAT 98
[2025-01-20] MEDS: ALPRAZolam 0.5 mg Tablet 0.125 MG PO (08:20)
--- NOTE | 2025-01-20 08:42 | MR_ITS ---
WS: [id number] MRCP (MAGNETIC RESONANCE CHOLANGIOPANCREATOGRAPHY) HISTORY: intrahepatic dilatation COMPARISON: CT abdomen 01/19/2025, gallbladder ultrasound 01/19/2025 TECHNIQUE: Multiple sequences are performed to evaluate the intra and extrahepatic ducts. Normal common bile duct size at 5.0 mm. No filling defects pancreatic duct is also normal. There is intrahepatic central bile duct dilatation as noted on the CT. Mild fullness in the region of the central liver at the confluence of the bile ducts. Similar findings noted on the CT. Several of the central bile ducts are focally dilated. Portal vein appears patent. Pancreas is normal. Normal adrenal glands and spleen. No renal obstruction. No ascites or adenopathy. Prior cholecystectomy. MR/MR MRCP [id number] IMPRESSION: 1. Normal size common hepatic duct at 5.0 mm. Normal pancreatic duct. 2. Mild intrahepatic duct dilatation. There is mild focal dilatation of the ce ntral intrahepatic ducts. This area needs to be further evaluated. Recommend de dicated follow-up multiphase CT or MRI with and without contrast. Delayed postc ontrast imaging should also be performed as cholangiocarcinoma needs to be excl uded. 3. Prior cholecystectomy.
--- NOTE | 2025-01-20 09:49 | PC.PHAR ---
Pt no longer takes Venlafaxine xr 37.5 last fill 01/14/25 30ds.Pt no loner takes Paxil 10 mg 2 po daily last fill 12/28/24 30ds-It is now on her ALLERGY list.
[2025-01-20 11:10] VITALS: BP 122/87; PULSE 68; RESP 16; TEMP 36.5; O2SAT 100
--- NOTE | 2025-01-20 12:12 | CT_ITS ---
WS: [id number] CT ABDOMEN AND PELVIS WITH CONTRAST HISTORY: Evaluate for possible cholangiocarcinoma. TECHNIQUE: Imaging performed of the abdomen and pelvis with IV contrast. Multi phase imaging of the abdomen. Coronal and sagittal reformats are submitted. All CT scans at [facility] use at least one of these dose optimization techniques: automated exposure control; mA and/or kV adjustment per patient size (includes targeted exams where dose is matched to clinical indication); or iterative reconstruction. IV CONTRAST: Omnipaque 350; 100 mL IV. Oral contrast: No DLP: 1408.73 mGy.cm COMPARISON: 01/19/2025, 05/03/2024 Lower thorax: Lung bases are clear. Heart is normal size. No hiatal hernia. Liver: Multi phase imaging is performed. There is continued mild intrahepatic bile duct dilatation. There is an area of decreased attenuation in the central liver near the lon hepatis and portal vein confluence. There is mild peripheral enhancement. This remains low attenuation on all phases. There may be mild peripheral enhancement on the delayed sequence. More centrally there is very slight narrowing of the intrahepatic bile duct, better seen on the study from 01/19/2025. The common bile duct is normal caliber. Normal portal vein. Prior cholecystectomy. No renal obstruction. Normal size spleen with granulomata. No pancreatic abnormality. Pancreatic duct is normal. Common bile duct at the pancreatic head is normal. No adenopathy. No GI tract obstruction. Negative urinary bladder. CT/CT abdomen pelvis w con* [id number] IMPRESSION: 1. Multiphase hepatic CT performed to evaluate for possible cholangiocarcinoma . There is an area of decreased attenuation in the central liver which could po tentially represent a very early occult lesion. This would not explain hepatic dilatation on the RIGHT and less there is an infiltrating neoplasm or stricture . Please note that the area of concern on the CT corresponds to the abnormality n oted on the recent MRCP in the central liver. 2. Intrahepatic duct dilatation is new since 05/03/2024. Possibility of an occu lt neoplasm such as a cholangiocarcinoma or biliary stricture should be conside red. Probably the most helpful exam at this time would be an ERCP. MRI liver wi th and without contrast may provide additional information. 3. Prior cholecystectomy. Notified Jaime Sanders MD at 01/20/2025 1:22 PM.
--- NOTE | 2025-01-20 13:53 | PM.DCS ---
Discharge Providers Date of Admission: 01/19/25 18:33 Date of Discharge: January 20, 2025 Attending Provider at Admission: Jaime Sanders MD Attending Provider at Discharge: Jaime Sanders MD Primary Care Provider: MOODY Mckinney Diagnoses at Discharge Discharge Diagnosis (1) Acute pancreatitis: Status: Resolved (2) Transaminitis: Status: Acute Reason for Visit Reason for Visit: abd/rib pain Hospital Course Hospital Course Padmini Rothman is a 54 year old female with a past medical history of portal vein thrombosis on Xarelto, hypertension hyperlipidemia, history of cholecystectomy, history of back surgery, who presents [facility] due to abdominal pain. Patient reports that for the last 24 hours, she has had pain in the left upper quadrant, radiating to the right upper quadrant, associate with diarrhea, no fevers, no chills, no nausea, no vomiting, does report a poor appetite, does report diarrhea but no blood or black stools. She tells me that she has been on steroids recently, for her hip, also received a steroid injection. She is also on phentermine. Denies any trauma. Denies any personal family history of cholangiocarcinoma. She is taking her Xarelto as prescribed. She continues to have abdominal pain, poor appetite, feeling unwell so she came to the emergency room Patient was admitted to [facility] for acute pancreatitis, received IV fluids, bowel rest, overall clinically improved, will be discharged on GI soft diet, slowly advance diet, drink plenty electrolyte balanced fluids, discharged on a hydrocodone to be used sparingly for pain. Discussed with patient do not drive or operate machinery or drink while taking narcotic medication. In terms of the cause of patient's pancreatitis, likely associated with recent steroid use, discussed to avoid steroids as much as possible in the future. Also potentially phentermine could be associated I have advised her to hold off on using phentermine for now. Patients imaging as below MRCP MR/MR MRCP [id number] IMPRESSION: 1. Normal size common hepatic duct at 5.0 mm. Normal pancreatic duct. 2. Mild intrahepatic duct dilatation. There is mild focal dilatation of the central intrahepatic ducts. This area needs to be further evaluated. Recommend dedicated follow-up multiphase CT or MRI with and without contrast. Delayed postcontrast imaging should also be performed as cholangiocarcinoma needs to be excluded. 3. Prior cholecystectomy. CT ABDOMEN AND PELVIS CT/CT abdomen pelvis w con* [id number] IMPRESSION: 1. Multiphase hepatic CT performed to evaluate for possible cholangiocarcinoma. There is an area of decreased attenuation in the central liver which could potentially represent a very early occult lesion. This would not explain hepatic dilatation on the RIGHT and less there is an infiltrating neoplasm or stricture. Please note that the area of concern on the CT corresponds to the abnormality noted on the recent MRCP in the central liver. 2. Intrahepatic duct dilatation is new since 05/03/2024. Possibility of an occult neoplasm such as a cholangiocarcinoma or biliary stricture should be considered. Probably the most helpful exam at this time would be an ERCP. MRI liver with and without contrast may provide additional information. 3. Prior cholecystectomy. -I had a detailed discussion with patient about her CT and MRCP as above -Her AFP is 2.1, CEA is 2.7, CA 19 is 18 -Discussed imaging findings with radiology -The concern is, she could have a possible cholangiocarcinoma or stricture that could be causing imaging results as above -I did discuss the case with GI physician at [facility], for a close follow-up for consideration of ERCP, they are in agreement and will reach out to patient for appointment -Discussed with patient in detail, she voiced understanding, all questions answered, will follow-up with GI and [facility] for consideration ERCP -Patient was advised if she were to have any recurrent abdominal pain to go to emergency room Physical Exam Const: COMMON NORMALS: no acute distress and patient oriented x3 Resp: COMMON NORMALS: normal respiratory effort, No retractions, No use of accessory muscles and clear to auscultation bilaterally AUSCULTATION: clear to auscultation bilaterally Cardio: COMMON NORMALS: regular rate, regular rhythm, S1 normal heart sound present and S2 normal heart sound present RATE: regular rate RHYTHM: regular rhythm HEART SOUNDS: S1 normal heart sound present and S2 normal heart sound present GI: COMMON NORMALS: Normal to inspection, nondistended, normoactive bowel sounds present and non-tender Extremity: COMMON NORMALS: no pedal edema Neuro: COMMON NORMALS: patient oriented x3 Psych: COMMON NORMALS: mental status grossly normal Discharge Data Studies Completed and Pending Completed Studies During Hospitalization Category Date Time Status CT abdomen pelvis w con* [id number] Stat Cat Scan 02/26/25 17:[address] abdomen pelvis w con* [id number] Stat Cat Scan 01/20/25 12:12 Completed MR MRCP [id number] Routine MRI 01/20/25 08:42 Completed US gall bladder [id number] Stat Ultrasound 01/19/25 18:13 Completed Pending at discharge Category Date Time Status AFPTM [Tumor Marker Alpha Fetoprotein] Routine Lab 01/20/25 13:00 Received CEA [Carcinoembryonic Antigen] Routine Lab 01/20/25 13:00 Received Cancer Antigen 19 9 Routine Lab 01/20/25 13:00 Received Complete Blood Count w/Auto AM LABS Lab 01/21/25 04:00 Ordered Complete Blood Count w/Auto AM LABS Lab 01/22/25 04:00 Ordered Comprehensive Metabolic Panel AM LABS Lab 01/21/25 04:00 Ordered Comprehensive Metabolic Panel AM LABS Lab 01/22/25 04:00 Ordered HEP ACUTE [Hepatitis Acute Panel] Routine Lab 01/20/25 13:00 Received HIV 1&2 Antigen & Antibody Routine Lab 01/20/25 13:00 Received Lipase Routine Lab 01/20/25 13:00 Received Magnesium AM LABS Lab 01/21/25 04:00 Ordered Magnesium AM LABS Lab 01/22/25 04:00 Ordered Phosphorus AM LABS Lab 01/21/25 04:00 Ordered Phosphorus AM LABS Lab 01/22/25 04:00 Ordered Prothrombin Time INR AM LABS Lab 01/21/25 04:00 Ordered Prothrombin Time INR AM LABS Lab 01/22/25 04:00 Ordered Radiology Impressions Gallbladder Ultrasound 01/19/25 18:13 IMPRESSION: As above. Cholangiopancreatography MRI 01/20/25 08:42 IMPRESSION: 1. Normal size common hepatic duct at 5.0 mm. Normal pancreatic duct. 2. Mild intrahepatic duct dilatation. There is mild focal dilatation of the central intrahepatic ducts. This area needs to be further evaluated. Recommend dedicated follow-up multiphase CT or MRI with and without contrast. Delayed postcontrast imaging should also be performed as cholangiocarcinoma needs to be excluded. 3. Prior cholecystectomy. Abdomen/Pelvis CT 01/20/25 12:12 IMPRESSION: 1. Multiphase hepatic CT performed to evaluate for possible cholangiocarcinoma. There is an area of decreased attenuation in the central liver which could potentially represent a very early occult lesion. This would not explain hepatic dilatation on the RIGHT and less there is an infiltrating neoplasm or stricture. Please note that the area of concern on the CT corresponds to the abnormality noted on the recent MRCP in the central liver. 2. Intrahepatic duct dilatation is new since 05/03/2024. Possibility of an occult neoplasm such as a cholangiocarcinoma or biliary stricture should be considered. Probably the most helpful exam at this time would be an ERCP. MRI liver with and without contrast may provide additional information. 3. Prior cholecystectomy. Notified Jaime Sanders MD at 01/20/2025 1:22 PM. Laboratory Results WBC 6.20 10^3/uL (3.29-11.43) 01/20/25 04:45 RBC 4.01 10^6/uL (3.85-5.65) 01/20/25 04:45 Hgb 11.60 g/dL (11.27-16.99) 01/20/25 04:45 Hct 34.8 % (36-47) L 01/20/25 04:45 MCV 86.8 fl (85-98) 01/20/25 04:45 MCH 28.9 pg (27-33) 01/20/25 04:45 MCHC 33.3 g/dL (30-55) 01/20/25 04:45 RDW 13.9 % (12.1-15.1) 01/20/25 04:45 Plt Count 251 10^3/cmm (157-399) 01/20/25 04:45 MPV 9.6 fL (7.4-10.4) 01/20/25 04:45 Neut % (Auto) 64.5 % 01/20/25 04:45 Lymph % (Auto) 24.2 % 01/20/25 04:45 [place] % (Auto) 8.4 % 01/20/25 04:45 Eos % (Auto) 1.8 % 01/20/25 04:45 Baso % (Auto) 0.6 % 01/20/25 04:45 Neut # (Auto) 4.00 10^3/uL (1.8-7.7) 01/20/25 04:45 Lymph # (Auto) 1.5 10^3/uL (0.8-4.8) 01/20/25 04:45 [place] # (Auto) 0.5 10^3/uL (0.2-0.9) 01/20/25 04:45 Eos # (Auto) 0.1 10^3/uL (0.0-0.8) 01/20/25 04:45 Baso # (Auto) 0.0 10^3/uL (0.0-0.1) 01/20/25 04:45 Nucleated RBC % (auto) 0 % 01/20/25 04:45 Nucleated RBCs # 0.0 /100WBC 01/20/25 04:45 PT 13.10 SECONDS (12.1-14.9) 01/20/25 04:45 INR 0.92 (0.8-1.2) 01/20/25 04:45 Sodium 138 mmol/L (136-145) 01/20/25 04:45 Potassium 3.7 mmol/L (3.5-5.1) 01/20/25 04:45 Chloride 108 mmol/L (98-107) H 01/20/25 04:45 Carbon Dioxide 23 mmol/L (22-29) 01/20/25 04:45 Anion Gap 10.7 (5-19) 01/20/25 04:45 BUN 10 mg/dL (6-20) 01/20/25 04:45 Creatinine 0.5 mg/dL (0.5-0.9) 01/20/25 04:45 GFR Calculation 128.1 mL/min (90-130) 01/20/25 04:45 Glucose 101 mg/dL (65-115) 01/20/25 04:45 Estimat Average Glucose 100 01/20/25 04:45 Hemoglobin A1c 5.1 % (4.0-6.0) 01/20/25 04:45 Calculated Osmolality 285 mOsm/kg (285-295) 01/20/25 04:45 Lactic Acid 0.5 mmol/L (0.5-2.2) 01/20/25 04:45 Calcium 8.2 mg/dL (8.5-10.5) L 01/20/25 04:45 Phosphorus 3.1 mg/dL (2.5-4.5) 01/20/25 04:45 Magnesium 2.1 mg/dL (1.7-2.3) 01/20/25 04:45 Total Bilirubin 0.3 mg/dL (0.15-1.2) 01/20/25 04:45 GGT 74 U/L (5-36) H 01/19/25 17:11 AST 182 U/L (0-32) H 01/20/25 04:45 ALT 230 U/L (0-33) H 01/20/25 04:45 Alkaline Phosphatase 117 U/L (35-105) H 01/20/25 04:45 C-Reactive Protein 3.0 mg/L (0.0-4.9) 01/19/25 17:11 Total Protein 5.7 g/dL (6.6-8.7) L 01/20/25 04:45 Albumin 3.5 g/dL (3.5-5.2) 01/20/25 04:45 Globulin 2.2 g/dL (1.3-4.6) 01/20/25 04:45 Triglycerides 51 mg/dL (0-150) 01/20/25 04:45 Cholesterol 177 mg/dL (0-200) 01/20/25 04:45 LDL Cholesterol, Calc 93 mg/dL (50-129) 01/20/25 04:45 HDL Cholesterol 74 mg/dL (60-100) 01/20/25 04:45 LDL/HDL Ratio 1.26 RATIO (0.00-3.22) 01/20/25 04:45 Cholesterol/HDL Ratio 2.39 mg/dL (0.0-4.40) 01/20/25 04:45 Lipase 900 U/L (13-60) H 01/19/25 17:11 Procalcitonin 0.06 ng/mL (0-0.5) 01/19/25 17:11 TSH 0.54 uIU/mL (0.27-4.20) 01/20/25 04:45 Urine Color Yellow (Yellow) 01/19/25 17: Urine Appearance Clear (CLEAR) 01/19/25: Urine pH 6.0 (5-7) 01/19/25: Ur Specific Foley 1.005 (1.005-1.030) 01/19/25 17: Urine Protein Negative (Negative) 01/19/25 17: Urine Glucose (UA) Negative (Normal) 01/19/25: Urine Ketones Negative (Negative) 01/19/25 17:27 Urine Blood Negative (Negative) 01/19/25 17:27 Urine Nitrate Negative (Negative) 01/19/25 17:27 Urine Bilirubin Negative (Negative) 01/19/25 17:27 Urine Urobilinogen 1.0 mg/dL (Negative) 01/19/25 17:27 Ur Leukocyte Esterase Negative (Negative) 01/19/25 17:27 Amorphous Sediment Not Reportable 01/19/25 17:27 Vitals Last Vital Signs Temp 97.7 F 01/20/25 11:10 Pulse 68 01/20/25 11:10 Resp 16 01/20/25 11:10 BP 122/87 01/20/25 11:10 Pulse Ox 100 01/20/25 11:10 O2 Del Method Room Air 01/20/25 11:10 Discharge Plan Discharge Patient Disposition: Home Condition: Stable Prescriptions: New ondansetron 4 mg tablet,disintegrating 4 mg PO Q6H PRN (Reason: nausea and vomiting) Qty: 14 0RF hydrocodone-acetaminophen 5-325 mg tablet 1 tab PO Q6H PRN (Reason: pain) 5 Days Qty: 20 0RF Continued alprazolam 0.25 mg tablet 0.125 mg PO BID PRN (Reason: anxiety) Qty: 30 0RF amlodipine 5 mg tablet See Rx Instructions .ROUTE .COMPLEX Qty: 30 5RF Dose Instruction: TAKE 1/2 TABLET (2.5 MG) BY MOUTH DAILY. INCREASE TO 1 TABLET (5 MG) DAILY IF NEEDED FOR BLOOD PRESSURE CONTROL Rx Instructions: TAKE 1/2 TABLET (2.5 MG) BY MOUTH DAILY. INCREASE TO 1 TABLET (5 MG) DAILY IF NEEDED FOR BLOOD PRESSURE CONTROL Xarelto 10 mg tablet 10 mg PO DAILY lisinopril 40 mg tablet 40 mg PO DAILY furosemide 80 mg tablet 80 mg PO PRN PRN (Reason: swelling) Rx Instructions: TAKE 1 TABLET BY MOUTH ONCE DAILY NEEDED FOR EDEMA. TAKE ONE-FOURTH OF A TABLET DAILY NEEDED. CAN TITRATE UP IF NEEDED. Held Zenpep 40,000-126,000- 168,000 unit capsule,delayed release(DR/EC) 1 cap PO BID Hold Instructions: Resume on 02/17/25. Discontinued phentermine 37.5 mg tablet 37.5 mg PO DAILY 30 Days Qty: 30 0RF meloxicam 15 mg tablet 15 mg PO DAILY Discharge Orders: Discharge Order (Routine); Ordered 01/20/25 Ordered By: Jaime Sanders Referrals: [facility] [Outside] - 1 week (We have notified your physician's clinic of the need for a follow-up appointment to be scheduled. If you have not heard from them within the next 2 business days, please call them directly. ) CADE Bean, W[employer] MAIN INSTALLER HELPER [Primary Care Provider] - 01/25/25 9:00 am Discharge Diet: Advance as tolerated Discharge Activity: Resume usual activity Patient Instructions: Hydrocodone/Acetaminophen (By mouth), Ondansetron (By mouth), Pancreatitis (DC), Abdominal Pain (ED), Opioid Safety Activity Restrictions/Additional Instructions: - Please avoid fatty meals, stick to GI soft diet -If you have recurrent abdominal pain go to emergency room -Avoid steroids, avoid phentermine -Hold Zenpep -See primary care provider for recheck liver function in 1 week -Drink plenty electrolyte balanced fluids Discharge Attestations Time Spent in Discharge Care*: greater than 30 min Status at Discharge: Cognitive status at discharge: cognitively intact, Behavioral status at discharge: cooperative, Quality Metrics Clinical Quality Measures [ No reported AMI, CVA or VTE this stay] Coding Level of Care Code 25683 Total time (in minutes) for Discharge: 45 Diagnoses Acute pancreatitis K85.90 Transaminitis R74.01
[2025-01-20 13:56] LABS: HIV 1 & 2 Antibody Non-Reactive (Non-Reactiv); HIV 1 & 2 Antigen Non-Reactive (Non-Reactiv); Hepatitis A Antibody IgM Non-Reactive (Nonreactive); Hepatitis B Core IgM Non-Reactive (Nonreactive); Hepatitis B Surface Antigen Non-Reactive (Nonreactive); Hepatitis C Virus Antibody Non-Reactive (Nonreactive)
[2025-01-20 14:06] LABS: Carcinoembryonic Antigen 2.7 ng/mL (0.0-4.7); Tumor Marker Alpha Fetoprotein 2.1 ng/mL (0-8.3)
[2025-01-20 14:17] LABS: Lipase 103 U/L (13-60)
[2025-01-20 14:40] LABS: Cancer Antigen 19 9 18.08 U/mL (0-35)
[2025-01-20 15:14] VITALS: BP 122/87; PULSE 68; RESP 16; TEMP 36.5; O2SAT 100
--- NOTE | 2025-01-20 16:53 | PC.NURSE ---
Patient called and [facility] pharmacy in [facility] did not have hydrocodone in stock. Dr. Sanders notified and he is sending prescription to [facility] here in [place]. Patient notified.
--- NOTE | 2025-01-21 14:01 | PC.NURSE ---
Dr. Forbes sent [facility] in [place].
== END 2025-01-20 15:15 | disposition home or self-care (01) | DRG 440 ==
LOC: ER 18:30 → ER IP 18:33 → MEDSURG 01-20 02:01
PROVIDERS: Admitting Provider Family Medicine; Emergency Provider Emergency Medicine; PCP Nurse Practitioner Family; Visit Provider Family Medicine
DX: K85.30 Drug induced acute pancreatitis without necrosis or infection (principal); T38.0X5A Adverse effect of glucocorticoids and synthetic analogues, initial encounter; T50.5X5A Adverse effect of appetite depressants, initial encounter; I10 Essential (primary) hypertension; R74.01 Elevation of levels of liver transaminase levels; F41.9 Anxiety disorder, unspecified; F32.A Depression, unspecified; Z86.718 Personal history of other venous thrombosis and embolism; Z79.01 Long term (current) use of anticoagulants; Z90.49 Acquired absence of other specified parts of digestive tract; Z87.891 Personal history of nicotine dependence
CPT/HCPCS: 36415; 74177; 74181; 76705; 80053; 80061; 80074; 81003; 82105; 82378; 82977; 83036; 83605; 83690; 83735; 84100; 84145; 84443; 85025; 85610; 86140; 86301; 87806; 94664; 96374; 96375; 99285; J1171; J2405; J2470; J7030

== ENCOUNTER → 2025-01-27 13:48 | Outpatient (BNVA) | payer BC, MEDICAID, SELFPAY | PROVIDERS: PCP Nurse Practitioner Family; Visit Provider Nurse Practitioner Family | DX: Z79.899 Other long term (current) drug therapy (principal) | CPT/HCPCS: 83690 ==

== ENCOUNTER → 2025-02-08 14:41 | Outpatient (BNVA) | payer BC, MEDICAID, SELFPAY | PROVIDERS: PCP Nurse Practitioner Family; Visit Provider Nurse Practitioner Family | DX: Z87.19 Personal history of other diseases of the digestive system (principal); Z79.899 Other long term (current) drug therapy; Z01.89 Encounter for other specified special examinations; E78.2 Mixed hyperlipidemia | CPT/HCPCS: 80053; 80061; 81003; 82607; 82728; 83550; 84443; 85025 ==

== ENCOUNTER 2025-02-11 18:25 | Emergency (ER) | payer BC, MEDICAID, SELFPAY ==
--- NOTE | 2025-02-11 18:28 | PC.NURSE ---
pt went to bathroom after checking in; unable to do EKG at time of check in.
--- NOTE | 2025-02-11 18:35 | ECG_ITS ---
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 Measurements Intervals Jeddo Rate: 115 P: 71 OK: 157 QRS: 79 QRSD: 93 T: 46 QT: 322 QTc: 446 Interpretive Statements SINUS TACHYCARDIA MODERATE ST DEPRESSION [0.05+ mV ST DEPRESSION] Compared to ECG 03/12/2023 15:40:31 ST (T wave) deviation now present Sinus rhythm no longer present Electronically Signed On 02-12-2025 07:38:55 CDT by Jong Starkey M.D. [email or web address]
[2025-02-11 18:38] VITALS: BP 142/104; PULSE 105; RESP 18; TEMP 37.1; O2SAT 100; BMI 25.7
[2025-02-11 19:46] LABS: Basophils % 0.4 %; Eosinophils % 0.4 %; Hematocrit 41.8 % (36-47); Lymphocytes # 2.9 10^3/uL (0.8-4.8); Lymphocytes % 25.7 %; Mean Corpuscular HGB Conc 33.5 g/dL (30-55); Mean Corpuscular Hemoglobin 28.7 pg (27-33); Mean Corpuscular Volume 85.8 fl (85-98); Mean Platelet Volume 9.9 fL (7.4-10.4); Monocytes # 0.7 10^3/uL (0.2-0.9); Monocytes % 6.4 %; Neutrophils # 7.64 10^3/uL (1.8-7.7); Neutrophils % 66.7 %; Nucleated Red Blood Cells % 0 %; Platelet Count 380 10^3/cmm (157-399); Red Blood Count 4.87 10^6/uL (3.85-5.65); Red Cell Distribution Width 13.8 % (12.1-15.1); White Blood Count 11.42 10^3/uL (3.29-11.43)
[2025-02-11 20:08] LABS: Anion Gap 17.5 (5-19); Blood Urea Nitrogen 10 mg/dL (6-20); Calcium 10.1 mg/dL (8.5-10.5); Carbon Dioxide 22 mmol/L (22-29); Chloride 102 mmol/L (98-107); Creatinine Clr Calc Pharmacy 125.0784; Glomerular Filtration Rate 128.1 mL/min (90-130); Glucose 103 mg/dL (65-115); Osmolality Calculated 285 mOsm/kg (285-295); Potassium 3.5 mmol/L (3.5-5.1); Sodium 138 mmol/L (136-145)
[2025-02-11 20:10] VITALS: BP 133/84; PULSE 85; O2SAT 100
--- NOTE | 2025-02-11 20:10 | PC.NURSE ---
PATIENT REPORTS THAT SHE WANTS TO LEAVE. EDUCATED PATIENT AND ASKED IF I COULD TAKE VITALS. VITALS DOCUMENTED. PATIENT DECLINED REPEAT EKG AND STATED SHE WANTED TO GO HOME AND STATES CP HAS DECREASED AFTER TAKING A XANAX.
== END 2025-02-11 20:11 | disposition left against medical advice (07) ==
LOC: ER 18:29
PROVIDERS: Emergency Medicine; Emergency Provider Family Medicine; PCP Nurse Practitioner Family
DX: R00.0 Tachycardia, unspecified (principal); Z53.21 Procedure and treatment not carried out due to patient leaving prior to being seen by health care provider; Z01.89 Encounter for other specified special examinations
CPT/HCPCS: 36415; 80048; 85025; 93005; 99285

== ENCOUNTER 2025-02-25 10:08 | Emergency (ER) | payer BC, SELFPAY ==
[2025-02-25] VITALS (7 sets, daily range): BP systolic 113–214; BP diastolic 75–101; PULSE 79–116; RESP 16–22; TEMP 36.8; O2SAT 96–100; BMI 25.7
--- NOTE | 2025-02-25 10:42 | XR_ITS ---
WS: [id number] XR ribs LT mn 3V w CXR1V [id number] REASON FOR EXAM: LT LOWER RIB PAIN POST FALL; SOB FINDINGS: The chest is stable compared to 08/30/2024. No acute pulmonary parenchymal or pleural abnormality. No pneumothorax or pleural fluid. No acute fracture of the left ribs is identified. XR/XR ribs LT mn 3V w CXR1V [id number] IMPRESSION: No acute abnormality as above.
--- NOTE | 2025-02-25 10:46 | PC.PHAR ---
Pt had new order for Amlodipine 5 mg 2.5mg daily from 02/19/25 30ds. Pt stopped taking this medication so I did not enter it on her medical chart.
--- NOTE | 2025-02-25 10:57 | W.ED.FALL ---
HPI - Fall General: Chief Complaint: Fall Stated Complaint: fall left side pain Time Seen by Provider: 02/25/25 10:41 History of Present Illness: 54-year-old female presents emergency room after a fall. Patient fell landed on her left side complaining of left knee pain left rib pain. She has only been able to partially bear weight since the fall. She denies striking her head there is no loss consciousness no neck pain. She has severe pain with deep inspiration and not even trying to sit up on the exam table. Patient is on Xarelto for portal vein thrombosis. Associated symptoms-after fall: Reports chest pain; Denies abdominal pain or neck pain Related Data Home Medications ?Medication ?Instructions ?Recorded ?Confirmed rivaroxaban 10 mg tablet (Xarelto) 10 mg PO QAM 01/20/25 02/25/25 hydrocodone 5 mg-acetaminophen 325 1 tab PO Q6H PRN Pain 02/25/25 02/25/25 mg tablet lisinopril 40 mg tablet 40 mg PO QAM 02/25/25 02/25/25 Previous Rx's ?Medication ?Instructions ?Recorded ondansetron 4 mg disintegrating 4 mg PO Q6H PRN nausea and 01/19/25 tablet vomiting #14 tabs alprazolam 0.25 mg tablet 0.125 mg (1/2 x 0.25 mg) PO BID 01/27/25 PRN anxiety #30 tabs blood sugar diagnostic (Blood #200 ea 02/08/25 Glucose Test strips) blood-glucose meter #1 ea 02/08/25 lancets #200 ea 02/08/25 oxycodone 10 mg tablet 10 mg PO Q8H PRN pain #15 tabs 02/25/25 Allergies Allergy/AdvReac Type Severity Reaction Status Date / Time celecoxib (From Celebrex) Allergy unknown Verified 02/08/25 14:20 paroxetine (From Paxil) Allergy ADR-Hyperte Verified 02/08/25 14:20 nsion phentermine (From Fastin Allergy Unconscious Verified 02/08/25 14:20 (phentermine)) tramadol Allergy unknown Verified 02/08/25 14:20 escitalopram AdvReac Mild ADR-Diarrhe Verified 02/08/25 14:20 a Review of Systems Const: Denies: fever(s) or chills Card: Reports: chest pain Resp: Denies: dyspnea GI: Denies: abdominal pain : Denies: dysuria, urinary frequency or urinary urgency Musc: Denies: neck pain or back pain Skin/Breast: Denies: rash PFSH ED PFSH: Medical History Hypoglycemia Hx of pancreatitis Skin lesion of face Otitis media Upper respiratory infection Anxiety Traumatic injury of rib Spondylolisthesis at L5-S1 level Breast cancer screening by mammogram Callus of foot (~10/23/23) Bone spur of foot Encounter for laboratory test Otitis media, right Post-cholecystectomy syndrome Mixed hyperlipidemia Lumbar stenosis with neurogenic claudication Chronic anticoagulation Portal vein thrombosis Colitis Allergic sinusitis Vitamin D deficiency COPD (chronic obstructive pulmonary disease) Anxiety and depression Essential hypertension Surgical History Status post lumbar laminectomy History of arthroscopic knee surgery Status post colonoscopy (10/04/21) History of hysterectomy (1996) Hysterectomy with unilateral right oophorectomy S/P cholecystectomy Family History Mother Dementia Hyperlipidemia Grandfather Cancer Grandmother Cancer Other CAD (coronary artery disease) Diabetes Hypertension Denies family history of Clotting disorder Psychiatric illness Chronic kidney disease (CKD) Suicide Anesthesia complication Bleeding disorder Lung disease Stroke Social History Smoking and tobacco/nicotine status: former use of tobacco/nicotine Second hand smoke exposure: No Alcohol intake: current Alcohol intake frequency: holidays/special occasions only Substance/Drug Use: never Physical Exam Const: GENERAL APPEARANCE: cooperative ORIENTATION/CONSCIOUSNESS: Yes awake, Yes oriented to person, Yes oriented to place and Yes oriented to time HENMT: COMMON NORMALS: normocephalic, atraumatic and hearing grossly normal bilaterally HEAD & SCALP: normocephalic and atraumatic Resp: COMMON NORMALS: normal respiratory effort, No retractions, No use of accessory muscles and clear to auscultation bilaterally AUSCULTATION: clear to auscultation bilaterally Cardio: COMMON NORMALS: regular rate, regular rhythm and No murmurs present (Cardio) RATE: regular rate RHYTHM: regular rhythm GI: COMMON NORMALS: Soft to palpation and No hepatosplenomegaly present AUSCULTATION: Yes normoactive bowel sounds PALPATION: Yes Soft to palpation, No Tenderness to palpation present (GI), No Guarding due to palpation present (GI) and Yes No hepatosplenomegaly present Extremity: COMMON NORMALS: normal to inspection, capillary refill normal, no clubbing, cyanosis or edema, no calf tenderness and no pedal edema Neuro: SENSORIUM/ORIENTATION: Yes oriented to person, Yes oriented to place and Yes oriented to time Skin: COMMON NORMALS: no rashes or lesions noted GENERAL SKIN EXAM: no rashes or lesions noted Course Vital Signs: Vital signs: Vital Signs Temperature 98.2 F 02/25/25 10:13 Pulse Rate 79 02/25/25 13:52 Respiratory Rate 16 02/25/25 13:52 Blood Pressure 113/75 02/25/25 13:52 Pulse Oximetry 96 02/25/25 13:52 Oxygen Delivery Me thod Room Air 02/25/25 13:01 MDM - Fall Medical Decision Making No acute fractures noted. The patient still had lots of pain given several rounds of morphine CT of the chest did not show any occult injuries that were not noted by the plain films. After the dose of Dilaudid patient states she felt much better. Will discharge home with oxycodone to use and lieu of hydrocodone for the next couple of days. Suspect the increased pain is due to worsening bruising from her being on the Xarelto. Follow-up with primary care Medical Records I reviewed the patient's medical records. Lab Data I reviewed the patient's lab results. 02/25/25 11:17 02/25/25 11:17 Radiology Impressions Ribs X-Ray 02/25/25 10:42 IMPRESSION: No acute abnormality as above. Knee X-Ray 02/25/25 11:04 IMPRESSION: No acute abnormality. Tibia/Fibula X-Ray 02/25/25 11:43 IMPRESSION: No acute abnormality. Chest CT 02/25/25 12:27 IMPRESSION: 1. Very mild pulmonary edema. No pneumonia. 2. No mediastinal or hilar adenopathy. 3. Prior cholecystectomy. 4. Mild intrahepatic duct dilatation is reidentified. This was previously addressed on the CT from 01/20/2025. Please refer to that report. ERCP was recommended and MRI liver. Laboratory Results WBC 10.62 10^3/uL (3.29-11.43) 02/25/25 11:17 RBC 4.80 10^6/uL (3.85-5.65) 02/25/25 11:17 Hgb 13.70 g/dL (11.27-16.99) 02/25/25 11:17 Hct 40.0 % (36-47) 02/25/25 11:17 MCV 83.3 fl (85-98) L 02/25/25 11:17 MCH 28.5 pg (27-33) 02/25/25 11:17 MCHC 34.3 g/dL (30-55) 02/25/25 11:17 RDW 14.1 % (12.1-15.1) 02/25/25 11:17 Plt Count 351 10^3/cmm (157-399) 02/25/25 11:17 MPV 9.9 fL (7.4-10.4) 02/25/25 11:17 Neut % (Auto) 70.7 % 02/25/25 11:17 Lymph % (Auto) 22.4 % 02/25/25 11:17 Gila % (Auto) 5.4 % 02/25/25 11:17 Eos % (Auto) 0.5 % 02/25/25 11:17 Baso % (Auto) 0.5 % 02/25/25 11:17 Neut # (Auto) 7.52 10^3/uL (1.8-7.7) 02/25/25 11:17 Lymph # (Auto) 2.4 10^3/uL (0.8-4.8) 02/25/25 11:17 Gila # (Auto) 0.6 10^3/uL (0.2-0.9) 02/25/25 11:17 Eos # (Auto) 0.1 10^3/uL (0.0-0.8) 02/25/25 11:17 Baso # (Auto) 0.1 10^3/uL (0.0-0.1) 02/25/25 11:17 Nucleated RBC % (auto) 0 % 02/25/25 11:17 Nucleated RBCs # 0.0 /100WBC 02/25/25 11:17 Sodium 141 mmol/L (136-145) 02/25/25 11:17 Potassium 3.7 mmol/L (3.5-5.1) 02/25/25 11:17 Chloride 106 mmol/L (98-107) 02/25/25 11:17 Carbon Dioxide 22 mmol/L (22-29) 02/25/25 11:17 Anion Gap 16.7 (5-19) 02/25/25 11:17 BUN 10 mg/dL (6-20) 02/25/25 11:17 Creatinine 0.5 mg/dL (0.5-0.9) 02/25/25 11:17 GFR Calculation 128.1 mL/min (90-130) 02/25/25 11:17 Glucose 93 mg/dL (65-115) 02/25/25 11:17 Calculated Osmolality 291 mOsm/kg (285-295) 02/25/25 11:17 Calcium 9.7 mg/dL (8.5-10.5) 02/25/25 11:17 Total Bilirubin 0.3 mg/dL (0.15-1.2) 02/25/25 11:17 AST 15 U/L (0-32) 02/25/25 11:17 ALT 15 U/L (0-33) 02/25/25 11:17 Alkaline Phosphatase 103 U/L (35-105) 02/25/25 11:17 Total Protein 7.5 g/dL (6.6-8.7) 02/25/25 11:17 Albumin 4.5 g/dL (3.5-5.2) 02/25/25 11:17 Globulin 3.0 g/dL (1.3-4.6) 02/25/25 11:17 All radiology interpretation(s) finalized by discharge Discharge Plan Discharge Patient Disposition: Home Clinical Impression: Contusion of rib on left side, Fall Condition: Stable Prescriptions: New oxycodone 10 mg tablet 10 mg PO Q8H PRN (Reason: pain) Qty: 15 0RF No Action alprazolam 0.25 mg tablet 0.125 mg PO BID PRN (Reason: anxiety) Qty: 30 0RF (DME) blood-glucose meter Misc See Rx Instructions .MEDSUPPLY Qty: 1 0RF Rx Instructions: Use as directed for checking blood sugar (DME) Blood Glucose Test Strip See Rx Instructions .MEDSUPPLY Qty: 200 12RF Rx Instructions: Use as directed with glucometer to check blood sugar (DME) lancets Misc See Rx Instructions .MEDSUPPLY Qty: 200 12RF Rx Instructions: Use as directed to prick skin for blood sugar checks ondansetron 4 mg tablet,disintegrating 4 mg PO Q6H PRN (Reason: nausea and vomiting) Qty: 14 0RF Xarelto 10 mg tablet 10 mg PO QAM hydrocodone-acetaminophen 5-325 mg tablet 1 tab PO Q6H PRN (Reason: Pain) lisinopril 40 mg tablet 40 mg PO QAM Discharge Orders: Discharge ED (Routine); Ordered 02/25/25 Ordered By: Baron Cochran Referrals: CADE Bean, [facility] [Primary Care Provider] - Discharge Diet: Usual diet Discharge Activity: Increase activity as tolerated Patient Instructions: Opioid Safety, Pain Management Activity Restrictions/Additional Instructions: Thank you for choosing [facility] for your healthcare needs today. It is very important that you follow up as instructed or that you return to the Emergency Department should you have concerns or if your condition changes or worsens in any way. You are seen in the emergency room with complaints of pain in the left knee and left side of the chest after a fall x-rays of the knee lower leg and the ribs did not show any fractures or acute injuries CT of the chest did not show any acute injury no pneumothorax no bleeding. Suspect your pain is from bone contusion likely worsened because of the fact that you are on Xarelto. You are given a prescription for oxycodone to use instead of hydrocodone for the first few days then go back to using the previously prescribed hydrocodone Print Language: French Coding Level of Care Code ED Computational Sciences Professor for Kimberly Fine
--- NOTE | 2025-02-25 11:04 | XR_ITS ---
WS: [email or web address] XR knee LT 3V* [id number] REASON FOR EXAM: trauma FINDINGS: No acute fracture identified. Patella and tibial plateaus intact. There is mild narrowing of the medial knee joint space with mild subchondral sclerosis. The lateral knee joint space and the patellofemoral joint space are intact and well preserved. No soft tissue abnormality. XR/XR knee LT 3V* [id number] IMPRESSION: No acute abnormality.
[2025-02-25] MEDS: morphine 4 mg/mL SDV 1 mL IVP ×3 (11:18→12:43)
[2025-02-25] MEDS: ondansetron 2 mg/ML SDV 2 mL 4 MG IVP (11:20)
[2025-02-25] MEDS: ketorolac 30 mg/mL INJ IVP (11:22)
[2025-02-25 11:35] LABS: Basophils # 0.1 10^3/uL (0.0-0.1); Basophils % 0.5 %; Eosinophils # 0.1 10^3/uL (0.0-0.8); Eosinophils % 0.5 %; Lymphocytes # 2.4 10^3/uL (0.8-4.8); Lymphocytes % 22.4 %; Mean Corpuscular HGB Conc 34.3 g/dL (30-55); Mean Corpuscular Hemoglobin 28.5 pg (27-33); Mean Corpuscular Volume 83.3 fl (85-98); Mean Platelet Volume 9.9 fL (7.4-10.4); Monocytes # 0.6 10^3/uL (0.2-0.9); Monocytes % 5.4 %; Neutrophils # 7.52 10^3/uL (1.8-7.7); Neutrophils % 70.7 %; Nucleated Red Blood Cells % 0 %; Platelet Count 351 10^3/cmm (157-399); Red Cell Distribution Width 14.1 % (12.1-15.1); White Blood Count 10.62 10^3/uL (3.29-11.43)
--- NOTE | 2025-02-25 11:43 | XR_ITS ---
WS: [email or web address] XR tibia fibula LT 2V [id number] REASON FOR EXAM: trauama FINDINGS: The tibia and fibula are intact without fracture. No soft tissue abnormality. XR/XR tibia fibula LT 2V [id number] IMPRESSION: No acute abnormality.
[2025-02-25 11:54] LABS: Alanine Aminotransferase 15 U/L (0-33); Albumin Level 4.5 g/dL (3.5-5.2); Alkaline Phosphatase 103 U/L (35-105); Anion Gap 16.7 (5-19); Aspartate Amino Transferase 15 U/L (0-32); Blood Urea Nitrogen 10 mg/dL (6-20); Calcium 9.7 mg/dL (8.5-10.5); Carbon Dioxide 22 mmol/L (22-29); Chloride 106 mmol/L (98-107); Creatinine Clr Calc Pharmacy 125.0784; Glomerular Filtration Rate 128.1 mL/min (90-130); Glucose 93 mg/dL (65-115); Osmolality Calculated 291 mOsm/kg (285-295); Potassium 3.7 mmol/L (3.5-5.1); Sodium 141 mmol/L (136-145); Total Bilirubin 0.3 mg/dL (0.15-1.2); Total Protein 7.5 g/dL (6.6-8.7)
--- NOTE | 2025-02-25 12:19 | ECG_ITS ---
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 Measurements Intervals [place] Rate: 89 P: 77 LA: 153 QRS: 60 QRSD: 98 T: 63 QT: 365 QTc: 446 Interpretive Statements SINUS RHYTHM WITH SINUS ARRHYTHMIA Compared to ECG 02/11/2025 18:35:06 Sinus tachycardia no longer present ST (T wave) deviation no longer present Electronically Signed On 02-26-2025 18:16:31 CDT by Jong Starkey M.D. [email or web address]
--- NOTE | 2025-02-25 12:27 | CT_ITS ---
WS: [id number] CT chest w con* [id number] HISTORY: Trauma TECHNIQUE: Axial imaging performed through the thorax. Coronal and sagittal reformats are submitted. All CT scans at [facility] use at least one of these dose optimization techniques: automated exposure control; mA and/or kV adjustment per patient size (includes targeted exams where dose is matched to clinical indication); or iterative reconstruction. CONTRAST: Omnipaque 350; 100 mL IV. DLP: 355.84 mGy.cm COMPARISON: 03/12/2023 Lungs and central airway: Very mild interstitial thickening most likely due to mild pulmonary fluid overload. There are few scattered benign granulomata. No consolidation, pneumonia or mass. Very tiny micronodule towards the lingula. This was also present on the prior study from 2022. There are additional nodules seen on the prior study which are not identified today. Pleura: Normal. No pleural effusion. Heart and pericardium: Normal size heart with no pericardial effusion. Mediastinum and francesca: Large RIGHT paratracheal calcified lymph node is stable. No adenopathy. Vessels: Normal size aortic and pulmonary artery. No coronary artery calcifications. Chest wall and lower neck: No soft tissue masses. Upper abdomen: Prior cholecystectomy. Mild intrahepatic duct dilatation is reidentified. Dilatation was addressed on a prior CT of 01/20/2025. Subtle area of decreased attenuation in the central liver could be an early cholangiocarcinoma. No interval change. Portal vein is normal. Osseous structures: No destructive process. CT/CT chest w con* [id number] IMPRESSION: 1. Very mild pulmonary edema. No pneumonia. 2. No mediastinal or hilar adenopathy. 3. Prior cholecystectomy. 4. Mild intrahepatic duct dilatation is reidentified. This was previously addr essed on the CT from 01/20/2025. Please refer to that report. ERCP was recommend ed and MRI liver.
[2025-02-25] MEDS: HYDROmorphone 0.5 MG/0.5 ML INJ IVP (13:31)
== END 2025-02-25 13:54 | disposition home or self-care (01) ==
PROVIDERS: Emergency Provider Family Medicine; PCP Nurse Practitioner Family
DX: S20.212A Contusion of left front wall of thorax, initial encounter (principal); W19.XXXA Unspecified fall, initial encounter; Z87.891 Personal history of nicotine dependence; J44.9 Chronic obstructive pulmonary disease, unspecified; I10 Essential (primary) hypertension; E78.2 Mixed hyperlipidemia; M25.562 Pain in left knee
CPT/HCPCS: 71101; 71260; 73562; 73590; 80053; 85025; 93005; 96374; 96375; 96376; 99285; J1171; J1885; J2270; J2405

== ENCOUNTER → 2025-04-26 14:40 | Outpatient (BNVA) | payer BC, SELFPAY | PROVIDERS: PCP Nurse Practitioner Family; Visit Provider Student in an Organized Health Care Education/Training Program | DX: M25.551 Pain in right hip (principal); G89.29 Other chronic pain; M16.11 Unilateral primary osteoarthritis, right hip; M70.61 Trochanteric bursitis, right hip | CPT/HCPCS: 73502 ==

== ENCOUNTER 2025-06-01 07:38 | Outpatient (CLI) | payer BC, SELFPAY ==
--- NOTE | 2025-06-01 08:00 | MR_ITS ---
WS: [email or web address] EXAMINATION: MR hip RT wo con* [id number] ORDER DATE: 06/01/2025 7:54 AM COMPARISON: None. HISTORY: right hip pain CONTRAST: None. TECHNIQUE: Coronal STIR of the Pelvis. Coronal proton density, coronal T1, axial T2 fat sat, axial T1, sagittal T2 fat sat, and sagittal T1 performed of the hip. FINDINGS: Moderate arthritis RIGHT hip with joint space narrowing. Hypertrophic changes about the acetabulum and femoral neck. No evidence of avascular necrosis or edema. No acute fractures. No significant joint effusion. Moderate degenerative narrowing of the LEFT hip. Normal bone marrow signal in the visualized pelvic bony structures and sacrum. Evidence of trochanteric bursitis RIGHT greater than LEFT hip with associated edema and a small mount of fluid about the greater trochanters. Grade 1 anterolisthesis L5 on S1 with chronic spondylolysis at this level. Recommend correlation for L5-S1 instability. No inguinal lymphadenopathy. Normal visualized sigmoid colon. MR/MR hip RT wo con* [id number] IMPRESSION: 1. Moderate arthritis RIGHT hip with significant joint space narrowing. This i s somewhat advanced for patient's age. No evidence of avascular necrosis. Hyper trophic changes about the acetabulum. Normal bone marrow signal in the femoral head. Normal bone marrow signal in the femoral neck. 2. Trochanteric bursitis RIGHT greater than LEFT hip. 3. Grade 1 anterolisthesis L5 on S1 with chronic spondylolysis. Recommend gracie elation for instability. 4. Moderate degenerative arthritis LEFT hip. 5. No other acute findings.
== END 2025-06-01 07:39 | disposition home or self-care (01) ==
LOC: RAD 07:39
PROVIDERS: PCP Nurse Practitioner Family; Visit Provider Student in an Organized Health Care Education/Training Program
DX: M16.11 Unilateral primary osteoarthritis, right hip (principal); M70.61 Trochanteric bursitis, right hip; M47.817 Spondylosis without myelopathy or radiculopathy, lumbosacral region
CPT/HCPCS: 73721; 80053; 82150; 83690; 85025

== ENCOUNTER 2025-07-18 06:37 | Outpatient (CLI) | payer BC, SELFPAY ==
--- NOTE | 2025-07-18 06:48 | CT_ITS ---
WS: [id number] CT RIGHT hip for ARACELI procedure HISTORY: RIGHT TOTAL HIP ARTHROPLASTY Date: 07/18/2025 6:48 AM COMPARISON: None available. TECHNIQUE: Protocol for ARACELI total hip replacement has been obtained. This includes axial imaging from the hip joint through the knee joint. DLP: 848 FINDINGS: Osteopenia. Moderate to advanced degenerative arthritis RIGHT hip. Hypertrophic spurring about the acetabulum. Degenerative arthritis sacroiliac joints and lower lumbar spine. Vascular calcification. Sigmoid diverticulosis. CT/CT hip RT [facility] [id number] IMPRESSION: CT imaging provided for [facility] robotic total hip replacement.
== END 2025-07-18 06:38 | disposition home or self-care (01) ==
LOC: RAD 06:37
PROVIDERS: PCP Nurse Practitioner Family; Visit Provider Student in an Organized Health Care Education/Training Program
DX: M16.11 Unilateral primary osteoarthritis, right hip (principal)
CPT/HCPCS: 73700

== ENCOUNTER → 2025-08-10 14:38 | Outpatient (BNVA) | payer BC, SELFPAY | PROVIDERS: PCP Nurse Practitioner Family; Visit Provider Physician Assistant | DX: Z01.818 Encounter for other preprocedural examination (principal) | CPT/HCPCS: 36415; 80053; 81001; 85025 ==

== ENCOUNTER 2025-08-29 10:31 | Observation (INO) | payer BC, MEDICAID, SELFPAY ==
[2025-08-29] VITALS (29 sets, daily range): BP systolic 74–143; BP diastolic 52–92; PULSE 65–107; RESP 12–31; TEMP 36.1–36.8; O2SAT 90–100; BMI 27.9
[2025-08-29] MEDS: acetaminophen 1,000 MG/100 ML PIGGYBACK 400 MG IV ×3 (06:19→22:37)
--- NOTE | 2025-08-29 06:30 | ANES.PREANE2 ---
Pre-Anesthetic Assessment Height/Weight: Height 5 ft 5 in Weight 168 lb Temp Pulse Resp BP Pulse Ox O2 Del Method 97 F L 74 18 143/92 99 Room Air 08/29/25 05:53 08/29/25 05:53 08/29/25 05:53 08/29/25 05:53 08/29/25 05:53 08/29/25 05:53 Preop Diagnosis: Hip arthritis Operation Date: 08/29/25 07:00 Proposed Procedures p Rashaun Robot Anterior Hip Arthroplasty(Right) - Narciso Siegel, DO Was Beta Kerri taken within 24 hours: N/A Was Clonidine taken within 24 hours: N/A Last intake: Intake Last Liquid Date 08/28/25 Last Liquid Time 16:00 Last Solid Date 08/28/25 Last Solid Time 16:00 Social No alcohol and No tobacco Exam alert, oriented x 3, clear to auscultation bilaterally and regular rate & rhythm Airway Submandibular: within normal limits Cervical ROM: within normal limits Mallampati: Class III Dentition: false Anesthetic Plan ASA status: 3 Anesthesia: General Other: No prior issues with anesthesia NPO since yesterday evening History of GERD controlled with omeprazole Hypertension on lisinopril Prior portal vein thrombosis, on chronic Xarelto. Last taken 08/20/2025. Plan for preop Doppler EKG showing sinus rhythm with sinus arrhythmia Plan for general anesthesia Medications/Allergies Home Medications ?Medication ?Instructions ?Recorded ?Confirmed ?Last Taken ?Type blood sugar diagnostic (Blood #200 ea 02/08/25 08/10/25 Unknown Rx Glucose Test strips) blood-glucose meter #1 ea 02/08/25 08/10/25 Unknown Rx lancets #200 ea 02/08/25 08/10/25 Unknown Rx rivaroxaban 10 mg tablet (Xarelto) 10 mg PO QAM #90 tabs 03/18/25 08/29/25 08/20/25 Rx omeprazole 20 mg capsule,delayed 20 mg PO BID 04/26/25 08/29/25 08/29/25 04:00 History release fluticasone propionate 50 1 spray intranasal DAILY PRN 04/28/25 08/29/25 Unknown Rx mcg/actuation nasal allergy symptoms 30 days #11 mL spray,suspension hydrocodone 5 mg-acetaminophen 325 1 tab PO Q12H PRN Pain 30 days #40 0808/29/25 08/28/25 12:00 Rx mg tablet tabs lisinopril 40 mg tablet 40 mg PO QAM #90 tabs 07/01/25 08/29/25 08/28/25 07:00 Rx alprazolam 0.25 mg tablet 0.125 mg (1/2 x 0.25 mg) PO BID 08/09/25 08/29/25 08/29/25 04:00 Rx PRN anxiety #30 tabs 0.125 mg Allergies Allergy/AdvReac Type Severity Reaction Status Date / Time Opioids - Morphine Analogues Allergy Mild rash Verified 08/15/25 11:19 celecoxib (From Celebrex) Allergy unknown Verified 08/15/25 11:19 paroxetine (From Paxil) Allergy ADR-Hyperte Verified 08/15/25 11:19 nsion phentermine (From Fastin Allergy Unconscious Verified 08/15/25 11:19 (phentermine)) tramadol Allergy unknown Verified 08/15/25 11:19 escitalopram AdvReac Mild ADR-Diarrhe Verified 08/15/25 11:19 a Current Medications Generic Name Dose Route Start Last Admin Trade Name Freq PRN Reason Stop Dose Admin Sodium Chloride 1,000 mls @ 30 mls/hr 08/29/25 06:00 08/29/25 06:21 Sodium Chloride 0.9% IV 08/30/25 05:59 30 mls/hr .Q24H GIANNI Administration PFSH Anesthesia Medical History (Updated 08/15/25 @ 11:11 by Kat Newby MD) Environmental and seasonal allergies Arthritis of right hip Right hip pain Osteophytosis Hypoglycemia Hx of pancreatitis Skin lesion of face Otitis media Upper respiratory infection Anxiety Traumatic injury of rib Spondylolisthesis at L5-S1 level Breast cancer screening by mammogram Callus of foot (~10/23/23) Bone spur of foot Encounter for laboratory test Otitis media, right Post-cholecystectomy syndrome Mixed hyperlipidemia Lumbar stenosis with neurogenic claudication Chronic anticoagulation Portal vein thrombosis Colitis Allergic sinusitis Vitamin D deficiency COPD (chronic obstructive pulmonary disease) Anxiety and depression Essential hypertension Surgical History Status post lumbar laminectomy History of arthroscopic knee surgery Status post colonoscopy (10/04/21) History of hysterectomy (1996) Hysterectomy with unilateral right oophorectomy S/P cholecystectomy Family History Mother Dementia Hyperlipidemia Grandfather Cancer Grandmother Cancer Other CAD (coronary artery disease) Diabetes Hypertension Denies family history of Clotting disorder Psychiatric illness Chronic kidney disease (CKD) Suicide Anesthesia complication Bleeding disorder Lung disease Stroke Social History Smoking and tobacco/nicotine status: never used tobacco/nicotine Second hand smoke exposure: No Alcohol intake: current Alcohol intake frequency: holidays/special occasions only Substance/Drug Use: never Data Anesthesia 08/29/25 06:20 08/29/25 06:10
[2025-08-29 06:37] LABS: Hematocrit 40.1 % (36-47); Hemoglobin 13.00 g/dL (11.27-16.99); Mean Corpuscular HGB Conc 32.4 g/dL (30-55); Mean Corpuscular Hemoglobin 27.7 pg (27-33); Mean Corpuscular Volume 85.5 fl (85-98); Nucleated Red Blood Cells % 0 %; Platelet Count 273 10^3/cmm (157-399); Red Blood Count 4.69 10^6/uL (3.85-5.65); White Blood Count 7.67 10^3/uL (3.29-11.43)
[2025-08-29 06:41] LABS: Anion Gap 15.0 (5-19); Blood Urea Nitrogen 15 mg/dL (6-20); Calcium 9.2 mg/dL (8.5-10.5); Carbon Dioxide 26 mmol/L (22-29); Chloride 104 mmol/L (98-107); Creatinine Clr Calc Pharmacy 129.8124; Glucose 95 mg/dL (65-115); Osmolality Calculated 293 mOsm/kg (285-295); Potassium 4.0 mmol/L (3.5-5.1); Sodium 141 mmol/L (136-145)
--- NOTE | 2025-08-29 07:05 | USCV_ITS ---
Padmini Rothman Age: 54 Gender: F : 1970 Exam Date: 08/29/2025 07:16 Ordering Phys: Narciso Siegel DO Technologist: PJ Exam Location: [facility] [place] Indication: Portal Vein Thrombosis. Preop eval HISTORY: Portal Vein Thrombosis. Preop exam PROCEDURES: Venous duplex imaging was performed in bilateral lower extremities. The following venous structures were evaluated: common femoral vein, profunda vein, proximal portion of the greater saphenous vein, superficial femoral vein, and the popliteal vein. In addition, the posterior tibial and peroneal trunk were evaluated. Serial compression, augmentation maneuvers, and spectral Doppler flow evaluation were performed. FINDINGS: Normal 2-D Doppler and augmentation and compressibility throughout the lower extremity venous structures. Additional imaging through the proximal calf veins also reveals no thrombus. Limited evaluation of the greater saphenous vein is patent with no thrombus. CONCLUSIONS No DVT bilateral lower extremities. Dr. Ramona Delgado DO (Electronically Signed) Final Date: 29 August 2025 07:44 S
--- NOTE | 2025-08-29 07:08 | W.PM.OPSUD ---
Surgery/Procedure H&P Update DATE OF PROCEDURE: August 29, 2025 DATE H&P PERFORMED: 08/10/25 H&P UPDATE INFORMATION: I have reviewed H&P completed within last 30 days, I have examined patient prior to procedure and No changes to prior documentation CHANGES TO PREVIOUS DOCUMENTATION: No new complaints since last office visit. Patient is cleared the preoperative clearance process with the preoperative clinic team. At this point in time she has discontinued her Xarelto for her portal venous thrombosis history we will get a bilateral lower extremity ultrasound to rule out any asymptomatic DVTs before proceeding today. Patient understands and agrees with current plan. All questions answered. Once again patient understands the ins and outs of procedure the risk benefits complication alternatives surgical nonsurgical treatment options. Understanding risk of surgery patient like to proceed with surgical invention for right total hip arthroplasty?Rashaun robotic assisted. Patient in preoperative discussion did reiterate that she wishes to be a full code. Patient understands and agrees with current plan. All questions answered. PREOP DIAGNOSIS: Right hip DJD PRIMARY INDICATION FOR PROCEDURE: Right hip DJD PLANNED PROCEDURE: Operation Date: 08/29/25 07:00 Proposed Procedures p Rashaun Robot Anterior Hip Arthroplasty(Right) - Narciso Siegel DO
[2025-08-29] MEDS: ceFAZolin 2,000 MG in sodium chloride 0.9% (plus) 50 ML 100 MG IV ×2 (08:20→16:06)
[2025-08-29] MEDS: lidocaine-epi 1% PF 1:200,000 30 mL SDV INJECTION (08:30)
--- NOTE | 2025-08-29 10:42 | XR_ITS ---
WS: [email or web address] Right hip, C-arm fluoroscopy views of the right hip, 08/29/2025 Clinical Data: OR PICS Comparison: Pelvis and right hip, 04/26/2025 Findings: Dr. Siegel inserted a right hip arthroplasty. XR/XR hip RT 2-3V wo/w pel* [id number] Impression: Right hip arthroplasty.
[2025-08-29] MEDS: fentaNYL 50 mcg/mL INJ 2mL IVP ×2 (11:03→11:17)
--- NOTE | 2025-08-29 11:11 | XR_ITS ---
WS: [id number] Right hip, 2 views, AP pelvis, 08/29/2025 Clinical Data: post op TERENCE Comparison: Pelvis and right hip, 04/26/2025 Findings: The right hip arthroplasty is in good position. No periprosthetic fractures or loosening is seen. XR/XR hip RT 2-3V wo/w pel* [id number] Impression: Right hip arthroplasty.
--- NOTE | 2025-08-29 11:12 | PM.OP ---
Operative Report Date of procedure: August 29, 2025 Surgeon: Narciso Siegel DO Tool Filer Hand: Luis Enrique Siegel PA-C: PA was necessary for assistance in this case with leg positioning, assistance with hip reductions, retraction and protection of neurovascular structures as well as assistance in implantation, assistance with wound closure and dressing application. Procedure: Preoperative diagnosis: Right hip degenerative joint disease Post-op diagnosis: Same Procedure done: Right total hip arthroplasty?Rashaun robotic assisted?anterior?approach Implants: Conover Trident acetabular shell size 54 mm Conover acetabular screw 30 mm Syed acetabular screw 20 mm Conover insignia hip stem high offset size 6 femur Trident 0 degree polyethylene 36 degree inner diameter 36 mm femoral head ceramic -2.5mm Surgeon: Narciso Siegel DO Anesthesia: Other (Spinal) Estimated blood loss: 350 mL IV fluids: 1700 mL Complications: None Findings: See operative report narrative Condition: stable Disposition: floor Brief History: Patient is a 54-year-old female presented to my outpatient office setting findings consistent with arthritis advanced degenerative joint disease of the right hip.? We talked about treatment options as far as nonoperative and operative intervention. Pt has failed conservative treatment.? Patient's right hip degenerative joint disease has been so severe she has been minimally ambulatory over the past couple months given her pain and decreased range of motion.? we talked about treatment options at this point time pt understands the risk benefits complication alternatives surgical nonsurgical treatment options.? Patient understands the risk of surgery and agrees to proceed.? Patient has underwent a preoperative evaluation. Pt cleared for surgical intervention. Pt understood and was agreeable to proceed with a right total hip arthroplasty consent was reviewed and signed with patient.?? All questions answered.? Patient will be admitted observation postoperatively. Procedure: Patient was seen evaluated in the preoperative holding area.? Consent was reviewed and signed with patient.? Correct operative extremity was then marked. ? All questions were answered at this time.? Once cleared by anesthesia used to brought back to the operative suite and then underwent anesthesia per the anesthesia department. The patient was administered preop antibiotics, and placed in the supine position. All bony prominences were properly padded, securely fixed to the table, and administered?general?anesthetic. The patient was subsequently transferred from the hospital bed to the [place] table. Bilateral lower extremities were placed in the traction boots. The pelvis was well approximated against the perineal post.? Final timeout performed.? Patient received appropriate preoperative antibiotics. Both hips were then prepped and draped in a normal orthopedic fashion.? Started with a small incision 2 fingerbreadths above the ASIS on the left iliac wing to place? pelvic arrays.? Small incision was made directly down to bone.? 3 pelvic pins were placed with excellent fixation.? The robotic array was secured to the nonoperative iliac wing using sterile technique. The extremity was then definitively draped in standard, sterile fashion.? The array was found to be visible by the robot. ?A standard??anterior?supine approach was performed to the?operative hip joint. The skin was incised down to the tensor fascia christa muscle and fascia. Fascia was split longitudinally in line with its fibers. The tensor fascia christa muscle was retracted laterally. The appropriate retractors were placed superiorly. Lateral circumflex vessels were identified and appropriately ligated. The hip capsule was then identified.? Appropriate retractors were placed superiorly and inferiorly along the capsule directly onto bone.??That was split longitudinally up to the acetabular rim in line with the femoral neck. The femoral capsule was found to be significantly hypertrophic, thickened, and significantly fibrotic. The capsule was then elevated both superiorly and inferiorly down to the lesser trochanter as well as up towards the greater trochanter.? Tag stitches were applied with 0 Vicryl into the capsule.? Femoral check point was?then inserted and confirmed on the lateral trochanter proximal femur.? A distal marker?of a sterile EKG lead was placed into the distal femur for measurement of leg lengths.? Preoperative leg lengths were registered and confirmed at this point. Next the appropriate-sized neck cut was then performed after being measured with robotic assistance. Femoral head was removed atraumatically this was found to have significant degenerative changes and deformity with significant osteophyte formation.? Femoral head was found to be severely degenerated and flattening with, eburnated bone. Acetabulum was also inspected and was found to have peripheral osteophytes as well as no evidence of cartilage consistent with [id number] arthritis.? Appropriate retractors were then placed in the?anterior?and posterior wall.? The remaining labrum was then excised from the periphery of the acetabular rim. Pulvinar was excised.? At this point registration for the Rashaun was performed on the acetabular side and confirmed. Once confirmed, any osteophytes able to be were removed. We planned 40 degrees of lateral opening and 20 degrees of anteversion. At this point, we reamed and medialized to the inner wall of the acetabulum with a size?54?reamer for line to line fit.?The acetabulum was found to have good bleeding bone throughout.?? Reamer removed excellent bleeding bone circumferentially with sufficient?anterior?and posterior wall. ?The definitive acetabular cup 54 mm was inserted and impacted under?Rashaun guidance with the appropriate amount of anteversion and lateral opening. It was then secured with 2x 6.5 mm cancellous screws in appropriate safe zone position.? I subsquently drilled measured and place appropriate length acetabular screws which measured 30 mm and 20 mm.? These had excellent fixation final x-rays were taken of the acetabular work and showed a seated and well fixed acetabular cup with appropriate position acetabular screws.? ?Next a 36-mm X3 neutral liner was impacted into the?acetabular shell and secured. Hip was then irrigated with copious amounts of irrigation. At this point, the remaining femoral releases were then performed allowing the adequate mobilization of the?right?femur.? Traction was confirmed to being off to the right lower extremity and the femur was then externally rotated, extended, and adducted giving adequate exposure of the proximal femur in the surgical wound. Box cut was then used to enter the intramedullary canal of the?femur. Canal finder was placed down the canal of the?operative femur. I then utilized a lateralizing rasp and then subsequently appropriate-sized broaches from a size 0 up to a size 6 were impacted down the operative femoral canal with the appropriate amount of anteversion.? A multiple trials were attempted and it was found?that high offset with -2.5mm neck was found to be most appropriate for a soft tissue tensioning offset, stability and the leg lengths?that was confirmed with Rashaun. ?Stability was then assessed and excellent stability with patient external rotation of greater?than 90 degrees and traction with no evidence of hip instability.? Appropriate tension noted of the soft tissues. At this point, the hip was relocated.?Rashaun guidance was again used to confirm appropriate leg lengths.? I utilized C arm to evaluate for leg lengths as well I did slightly at the lengthen comparative to the contralateral extremity but this was the appropriate size for patient's stability and excellent soft tissue tensioning as well as this was mapped with her preoperative planning given she had been significantly shortened given her arthritis.? Operative hip was then re-dislocated using a bone hook. All trials were then removed from the?operative femur. Adequate exposure was then once again obtained. The trials were removed. The definitive Syed insignia high offset size 6 hip stem was impacted down the?femoral canal with the appropriate amount of anteversion. The appropriate sized head 36 mm ceramic +-2.5mm was impacted onto the trunnion, and the?operative?hip was then relocated with traction and internal rotation. Final measurements were obtained on Rashaun confirming leg lengths and offset.? Once again hip stability was assessed and found to have excellent stability and appropriate soft tissue tensioning.? Hip was irrigated with copious amounts of irrigation.? Vancomycin powder was placed within the wound bed for added infection prophylaxis.? The superior and inferior leaflets of the capsule were then closed with Ethibond suture.? Vicryl tag stitches were removed.? The superficial layer of the tensor fascia christa fascia was closed using 0 stratafix suture in a running fashion.? Subcutaneous tissues were closed with running 3-0 Stratafix, skin was closed with 4-0 monocryl.?Surgical Prineo glue and steri strips were?applied and covered with a mi incisional VAC dressing to the operative side.?The incision on the non-operative side for the robotic array was irrigated and closed with layered fashion of 0 Vicryl, 2-0 Vicryl and running Monocryl suture and surgical glue and covered with Silverlon. ?The patient was subsequently awoken per Anesthesia and transferred to PACU in satisfactory condition. ?Leg lengths and rotational profile were found to be appropriate. ? DISPOSITION: The patient will be admitted to the hospital for initiation of DVT prophylaxis, physical therapy, pain control. The patient is to weight bear as tolerated.?Anterior?hip precautions, postoperative antibiotics,?postoperative will resume his home Xarelto once deemed stable for DVT prophylaxis after rechecking her labs.? Patient will receive appropriate discharge instructions as well as pain medication postoperatively and will follow up in my office in 2 weeks.? Patient with work with PT/OT.? Internal medicine will be consulted for medical management
--- NOTE | 2025-08-29 11:14 | PM.PACU ---
PACU note Narrative: Patient is a 54-year-old female just underwent right total hip arthroplasty. Pt transferred to PACU in stable condition. Dressing is dry. pt is awake and alert. pt can wiggle toes and plantarflex and dorsiflex foot. pt able to perform straight leg raise, Femoral nerve intact. Distal pulses are palpable toes are warm and well-perfused. Cap refill is normal and under 2 seconds. Sensation to foot is intact. Pain is controlled. Exam: awake Disposition: admitted
--- NOTE | 2025-08-29 11:15 | P.BOP_ITS ---
Date of Procedure: [August 29, 2025] Surgeon: [Dr. Siegel DO] Petroleum Engineering Professor(s): [Luis Enrique Siegel PA-C] Procedure(s) performed: [Right total hip arthroplasty with Rashaun robotic assist] Findings of the procedure(s): [Right hip degenerative joint disease. Procedure went well and is planned] Estimated blood loss: [350 mL] Specimen(s) removed: [Femoral head and acetabular shavings] Post-operative diagnosis: [Right hip degenerative joint disease]
[2025-08-29] MEDS: HYDROmorphone 1 mg/mL INJ 1ml ×3 (11:29→12:03)
--- NOTE | 2025-08-29 12:16 | P.CONIM_ITS ---
Providers/Reason For Consult 2 Consulting Physician/Specialty*: Hospitalist Reason for Consult*: Medical management Attending Physician: Narciso Siegel DO Primary Care Provider: MOODY Mckinney History of Present Illness History of Present Illness Padmini Rothman is a 54 year old female seen post-operatively following right hip replacement. Procedure reported as uneventful aside from some blood loss; blood counts to be rechecked tomorrow. She had been on a blood thinner for a prior clot in the vein going to the liver and stopped it about a week ago. Reports a history of hypertension. Denies diabetes, prior heart disease (heart attack, stroke), or chronic lung disease (chronic obstructive pulmonary disease/emphysema/asthma). Not on home oxygen and does not use continuous positive airway pressure (CPAP). Review of systems as discussed today: Prior to surgery, no fevers, chills, sore throat, nasal symptoms, sneezing, cough, nausea, or vomiting. Denies blood in stool or urine, and denies dysuria. Reports chronic diarrhea. States a history of pancreatitis; was hospitalized in February. Notes a ?spot? on the duct that runs from the liver to the pancreas that has been investigated and is being watched; exact etiology not known to the patient. Currently endorses pain located in the leg (not the hip). Breathing is okay. No chest pain, no nausea or vomiting, and no cough reported today. Discussed medication allergies/intolerances to opioids (including morphine) and tramadol; morphine has previously worsened pancreatic symptoms and has not been effective, while hydromorphone (Dilaudid) has been effective for pain relief. Review of Systems 2 Const: Denies: fever(s), chills, body aches or malaise ENMT: Denies: throat pain Card: Denies: chest pain, edema, pre-syncope or dyspnea on exertion Resp: Denies: dyspnea, productive cough, change in phlegm color or hemoptysis GI: Denies: abdominal pain, nausea, vomiting, diarrhea, constipation, hematochezia or melena : Denies: flank pain, urinary frequency or hematuria Musc: Denies: back pain, joint swelling or joint redness Skin/Breast: Denies: rash or new lesions Neuro: Denies: headache(s) or confusion Medications/Allergies Home Medications ?Medication ?Instructions ?Recorded ?Confirmed ?Last Taken ?Type blood sugar diagnostic (Blood #200 ea 02/08/25 5 Unknown Rx Glucose Test strips) blood-glucose meter #1 ea 02/08/25 08/29/25 Unkn own Rx lancets #200 ea 02/08/25 08/29/25 Un known Rx rivaroxaban 10 mg tablet (Xarelto) 10 mg PO QAM #90 ta bs 03/18/25 08/29/25 08/20/25 Rx omeprazole 20 mg capsule,delayed 20 mg PO BID 04/26/25 08/29/25 08/29/25 04:00 History release fluticasone propionate 50 1 spray intranasal DAILY PRN 04/28/25 08/29/25 Unknown Rx mcg/actuation nasal allergy symptoms 30 days #11 mL spray,suspension hydrocodone 5 mg-acetaminophen 325 1 tab PO Q12H PRN P ain 30 days #40 06/29/25 08/29/25 08/28/25 12:00 Rx mg tablet tabs lisinopril 40 mg tablet 40 mg PO QAM #90 tabs 08/29/25 08/28/25 07:00 Rx alprazolam 0.25 mg tablet 0.125 mg (1/2 x 0.25 mg) PO BID 08/09/25 08/29/25 08/29/25 04:00 Rx PRN anxiety #30 tabs 0.125 mg Allergies Allergy/AdvReac Type Severity Reaction Status Date / Time Opioids - Morphine Analogues Allergy Mild rash Verified 08/15/25 11:19 celecoxib (From Celebrex) Allergy unknown Verified 08/15/25 11:19 paroxetine (From Paxil) Allergy ADR-Hyperte Verified 08/15/25 11:19 nsion phentermine (From Fastin Allergy Unconscious Verified 08/15/25 11:19 (phentermine)) tramadol Allergy unknown Verified 08/15/25 11:19 escitalopram AdvReac Mild ADR-Diarrhe Verified 08/15/25 11:19 a Current Medications Generic Name Dose Route Start Last Admin Trade Name Freq PRN Reason Stop Dose Admin Sodium Chloride 1,000 mls @ 30 mls/hr 08/29/25 06:00 08/29/25 08:35 Sodium Chloride 0.9% IV 08/30/25 05:59 Infused .Q24H GIANNI Infusion PFSH Acute 2 PFSH: Medical History Environmental and seasonal allergies Arthritis of right hip Right hip pain Osteophytosis Hypoglycemia Hx of pancreatitis Skin lesion of face Otitis media Upper respiratory infection Anxiety Traumatic injury of rib Spondylolisthesis at L5-S1 level Breast cancer screening by mammogram Callus of foot (~10/23/23) Bone spur of foot Encounter for laboratory test Otitis media, right Post-cholecystectomy syndrome Mixed hyperlipidemia Lumbar stenosis with neurogenic claudication Chronic anticoagulation Portal vein thrombosis Colitis Allergic sinusitis Vitamin D deficiency COPD (chronic obstructive pulmonary disease) Anxiety and depression Essential hypertension Surgical History Status post lumbar laminectomy History of arthroscopic knee surgery Status post colonoscopy (10/04/21) History of hysterectomy (1996) Hysterectomy with unilateral right oophorectomy S/P cholecystectomy Family History Mother Dementia Hyperlipidemia Grandfather Cancer Grandmother Cancer Other CAD (coronary artery disease) Diabetes Hypertension Denies family history of Clotting disorder Psychiatric illness Chronic kidney disease (CKD) Suicide Anesthesia complication Bleeding disorder Lung disease Stroke Social History Smoking and tobacco/nicotine status: never used tobacco/nicotine Second hand smoke exposure: No Alcohol intake: current Alcohol intake frequency: holidays/special occasions only Substance/Drug Use: never Vitals/I&O/Wt Last Vital Signs Temp 97.7 F 08/29/25 12:13 Pulse 65 08/29/25 12:13 Resp 22 H 08/29/25 12:13 BP 100/62 08/29/25 12:13 Pulse Ox 100 08/29/25 12:13 O2 Del Method Nasal Cannula 08/29/25 12:13 O2 Flow Rate 2 08/29/25 12:13 08/28/25 08/29/25 08/29/25 22:59 06:59 14:59 Intake Total 100 / 100 1800 / 1800 Output Total 750 / 750 Balance 100 / 100 1050 / 1050 Weight last 48 hrs Weight 76.204 kg Physical Exam 2 Const: COMMON NORMALS: patient oriented x3 and alert GENERAL APPEARANCE: c ooperative ORIENTATION/CONSCIOUSNESS: Yes awake HENMT: COMMON NORMALS: oropharynx normal Neck/C-Spine: COMMON NORMALS: no JVD Resp: COMMON NORMALS: normal respiratory effort and clear to auscultation bilaterally AUSCULTATION: clear to auscultation bilaterally Cardio: COMMON NORMALS: no JVD, regular rhythm, S1 normal heart sound present, S2 normal heart sound present and No murmurs present (Cardio) RHYTHM: regular rhythm HEART SOUNDS: S1 normal heart sound present and S2 normal heart sound present GI: COMMON NORMALS: Normal to inspection, nondistended, normoactive bowel sounds present, Soft to palpation and non-tender PALPATION: Yes Soft to palpation Extremity: COMMON NORMALS: no joint enlargement and no pedal edema OTHER: Surgical dressing proximal anterior right thigh. No surrounding bleeding or swelling, no bruising erythema, no tenderness on palpation of the thigh. No ankle edema. She is moving her foot and toes. Leg appears perfused. Neuro: COMMON NORMALS: patient oriented x3 and moves all extremities S ENSORIUM/ORIENTATION: Yes alert Skin: COMMON NORMALS: no rashes or lesions noted GENERAL SKIN EXAM: no rashes or lesions noted Urinary Catheter Management: [place]: Cath Placed During This Visit: yes Urinary Catheter Date of Insertion: 08/29/25 Urinary Catheter Time of Insertion: 08:00 Data 08/29/25 06:20 08/29/25 06:10 A&P Assessment and plan 1. S/P total right hip arthroplasty: Uneventful procedure with some blood loss; monitoring recovery and incision area. Anterior approach. EBL 350 mL. She denies chest pain or pressure, trouble breathing, nausea or other complaints currently apart from some pain in her right anterior/proximal thigh. She is moving her lower leg, which appears to have good perfusion, without any swelling. Reviewed vitals, CBC, BMP, surgery note, discussed with orthopedic surgeon. - Recheck blood counts/hemoglobin tomorrow. - Physical therapy to evaluate and assist with mobilization. - Provide incentive spirometer and encourage use to help prevent pneumonia. Post-operative pain (right lower extremity) : Patient reports leg pain post- operatively; hydromorphone (Dilaudid) previously effective; morphine and tramadol not effective and worsen pancreatic symptoms. - Give acetaminophen (Tylenol) for pain relief. - Use IV hydromorphone (Dilaudid) as needed for pain control (patient reports this is the only opioid that has worked) for severe breakthrough. Plan: History of venous thromboembolism involving vein to liver (anticoagulation held) : Anticoagulation was stopped about one week prior to surgery; etiology of prior clot unknown. - If blood counts/hemoglobin are acceptable, probably restart blood thinner to resume treatment and for post-surgical venous thromboembolism prophylaxis. Hypertension : Known history; reports doing well with current home control. Resume home lisinopril. Chronic diarrhea : Patient reports chronic diarrhea; associated history of pancreatitis. History of pancreatitis : Hospitalized in February; opioids such as morphine have exacerbated symptoms in the past; hydromorphone tolerated. Anxiety: Continue Xanax as needed Allergic rhinitis: Continue fluticasone as needed Follow-up : Post-operative course and discharge planning. - Tentative plan to return home if recovery progresses as expected. PDMP PDMP Reviewed: Not Reviewed Consult Attestations 2 Medical Necessity Statement: Continue postoperative care after right TERENCE. Diagnoses S/P total right hip arthroplasty Z96.641
--- NOTE | 2025-08-29 12:20 | ANE.PACU2 ---
Inpatient post-anesthesia follow up: Airway intact: Yes Vital signs: Temperature 97.8 F Pulse Rate 75 Respiratory Rate 16 Blood Pressure 96/64 Pulse Oximetry 90 Oxygen Delivery Me thod Room Air Oxygen Flow Rate 2 Fraction of Inspir ed Oxygen Hydration adequate: Yes Nausea and vomiting: No Pain level: 1 Mental status: Baseline
--- NOTE | 2025-08-29 12:29 | PC.NURSE ---
1225 - accepted into room 268 - BP 114/87 - pulse 83 - 02 96% temp 97.4 - pt in no distress upon this nurse exiting care
[2025-08-29] MEDS: HYDROcodone-acetaminophen 10-325 mg Tablet 1 TAB PO ×3 (14:37→22:37)
[2025-08-29] MEDS: chlorhexidine gluconate 0.12% Btl 473 mL 30 ML MUCOUS MEM ×2 (16:06→21:23)
[2025-08-29] MEDS: calcium carb-vit d 600mg/400unit 1 Tablet 1 EACH PO (16:07)
[2025-08-29] MEDS: mupirocin oint 22 gm 1 APPLIC NASAL (16:07)
[2025-08-30] VITALS (7 sets, daily range): BP systolic 99–128; BP diastolic 59–69; PULSE 74–111; RESP 14–16; TEMP 36.8–37.3; O2SAT 91–99
[2025-08-30] MEDS: ceFAZolin 2,000 MG in sodium chloride 0.9% (plus) 50 ML 100 MG IV ×2 (00:06→08:06)
[2025-08-30] MEDS: HYDROmorphone 0.5 MG/0.5 ML INJ IVP ×3 (01:52→08:54)
[2025-08-30 05:16] LABS: Hematocrit 28.6 % (36-47); Hemoglobin 9.20 g/dL (11.27-16.99); Mean Corpuscular HGB Conc 32.2 g/dL (30-55); Mean Corpuscular Hemoglobin 28.0 pg (27-33); Mean Corpuscular Volume 86.9 fl (85-98); Nucleated Red Blood Cells % 0 %; Platelet Count 204 10^3/cmm (157-399); Red Blood Count 3.29 10^6/uL (3.85-5.65); White Blood Count 8.84 10^3/uL (3.29-11.43)
[2025-08-30] MEDS: calcium carb-vit d 600mg/400unit 1 Tablet 1 EACH PO ×2 (05:37→17:46)
[2025-08-30] MEDS: multivitamin therapeutic Tablet 1 TAB PO (05:37)
[2025-08-30] MEDS: mupirocin oint 22 gm 1 APPLIC NASAL ×2 (05:37→17:47)
[2025-08-30] MEDS: sennosides-docusate Tablet 2 TAB PO (05:37)
[2025-08-30] MEDS: chlorhexidine gluconate 0.12% Btl 473 mL 30 ML MUCOUS MEM ×3 (05:37→17:46)
[2025-08-30 05:42] LABS: Anion Gap 14.2 (5-19); Blood Urea Nitrogen 10 mg/dL (6-20); Calcium 8.5 mg/dL (8.5-10.5); Carbon Dioxide 25 mmol/L (22-29); Chloride 104 mmol/L (98-107); Creatinine Clr Calc Pharmacy 108.1770; Glucose 128 mg/dL (65-115); Osmolality Calculated 289 mOsm/kg (285-295); Potassium 4.2 mmol/L (3.5-5.1); Sodium 139 mmol/L (136-145)
[2025-08-30] MEDS: HYDROcodone-acetaminophen 10-325 mg Tablet 1 TAB PO ×4 (06:40→22:13)
[2025-08-30 09:07] LABS: Hemoglobin 9.80 g/dL (11.27-16.99)
--- NOTE | 2025-08-30 09:57 | PC.CHAP ---
Pastoral Care Encounter/Spiritual Assessment Type of Contact [] Declined employment assistant visit [] Patient/Family/Request visit [] Outpatient visit [] Follow-up visit [] Physician referral [] Code/Alert [x] Routine visit [] Staff referral [] Actively dying [] Patient sleeping [x] Family support [] [] Out of room [] Palliative care [] [] Receiving care in room [] Pre-surgical visit [] Trauma [] Long length of stay [] ICU visit [] Other: Relational/Emotional Strength [x] Patient feels connected with others/family/visitors/staff [] Distress [] Loneliness/isolation [] Abandonment Spirituality of Patient [x] Person of [place] [] Attends Yazdanism of their [place] [x] Believes in Prayer [] Reads Bible or Gnosticism materials [] There are Spiritual issues to be addressed Gang Worker Interventions [x] Prayer [x] Active listening [] Non-anxious presence [x] Spiritual/emotional support [] Crisis/trauma care [] Spiritual counseling [] Bereavement support [] Provided bereavement packet [] Provided Bible/devotional materials [] Provided toy/stuffed animal, coloring book to patient or family member [] Provided Communion [] Anointing/[place] [] Salvation [x] Completed spiritual assessment [] Other: Impact on Illness or Injury [] Angry [] Fearful [] Anxious [] Often cries [] Exhaustion [] Unable to work [] Unable to attend pentecostal [] Unable to walk/stand [] Unable to read [] Unable to drive [] Unable to eat/drink [] Unable to sleep [] Unable to be with family [] Patient intubated [] Other: Summary Time spent with patient 5 min
--- NOTE | 2025-08-30 10:53 | CTR_ITS ---
PROCEDURE INFORMATION: Exam: CT Right Lower Extremity Without Contrast, Thigh Exam date and time: 08/30/2025 11:29 AM Age: 54 years old Clinical indication: Thigh; Right; Prior surgery; Surgery date: Post-operative (0-2 days); RT hip surgery x yesterday. Increased pain and swelling today. No injury since. HX of blood clots- PT is off her blood thinner since surgery. ; Additional info: Pain, swelling, hb decrease, assess for hematoma TECHNIQUE: Imaging protocol: CT of the right lower extremity without contrast was performed. Exam focused on the thigh. Radiation optimization: All CT scans at this facility use at least one of these dose optimization techniques: automated exposure control; mA and/or kV adjustment per patient size (includes targeted exams where dose is matched to clinical indication); or iterative reconstruction. COMPARISON: CT hip RT [facility] [id number] 07/18/2025 7:09 AM RADIATION DOSE METRICS: Total DLP (mGy-cm): 790.5 FINDINGS: Bones/joints: Right total hip arthroplasty is in place. There are 2 screws fixating the acetabular component. The femoral component is centrally located within the acetabular cup. There is no fracture. The remainder of the femur is normal in appearance. Soft tissues: There is generalized subcutaneous soft tissue edema about the proximal right femur and hip. There is also soft tissue subcutaneous and intramuscular gas within the proximal thigh seen both within the extensor and adductor compartment. There is a small marginal crescentic region of mildly hyperdense fluid dissecting inferiorly along the myofascial margin of the vastus lateralis muscle and IT band distally through the proximal 2/3 of the thigh. This has a maximal thickness of approximately 6 mm from [id number]. CT/CT femur RT con* [id number] IMPRESSION: 1. Right total hip arthroplasty without acute complications 2. Postsurgical changes within the soft tissue about the right hip and proximal thigh. 3. Myofascial fluid tracking distally along the lateral edge of the vastus lateral malleolus muscle and IT band. This may represent some blood products/myofascial hematoma given its slight hyperdensity.
--- NOTE | 2025-08-30 10:54 | USCV_ITS ---
Padmini Rothman Age: 54 Gender: F : 1970 Exam Date: 08/30/2025 13:28 Ordering Phys: Stephen Taylor MD Technologist: Exam Location: [facility] Indication: rt leg pain and swelling post rt hip surg PROCEDURES: Venous duplex imaging was performed in only the right lower extremity. The following venous structures were evaluated: common femoral vein, profunda vein, proximal portion of the greater saphenous vein, superficial femoral vein, and the popliteal vein. In addition, the posterior tibial and peroneal trunk were evaluated. FINDINGS: Normal 2-D Doppler and augmentation and compressibility throughout the lower extremity venous structures. Additional imaging through the proximal calf veins also reveals no thrombus. Limited evaluation of the greater saphenous vein is patent with no thrombus. CONCLUSIONS No DVT right lower extremity. Dr. Ramona Delgado DO (Electronically Signed) Final Date: 30 August 2025 15:07 S
--- NOTE | 2025-08-30 10:55 | P.PN_ITS ---
Subjective 2 Subjective: In quite a bit of pain overnight and this morning in her R thigh. Vitals/I&O/Wt Last Vital Signs Temp 98.2 F 08/30/25 07:23 Pulse 111 H 08/30/25 07:23 Resp 16 08/30/25 07:23 BP 119/68 08/30/25 07:23 Pulse Ox 97 08/30/25 07:23 O2 Del Method Room Air 08/30/25 07:23 O2 Flow Rate 2 08/29/25 12:18 08/29/25 08/30/25 08/30/25 22:59 06:59 14:59 Intake Total 630 / 2430 870 / 3300 410 / 410 Output Total 500 / 1250 Balance 130 / 1180 870 / 2050 410 / 410 Weight last 48 hrs Weight 76.204 kg Physical Exam 2 Const: COMMON NORMALS: patient oriented x3 and alert GENERAL APPEARANCE: c ooperative ORIENTATION/CONSCIOUSNESS: Yes awake HENMT: COMMON NORMALS: oropharynx normal Neck/C-Spine: COMMON NORMALS: no JVD Resp: COMMON NORMALS: normal respiratory effort and clear to auscultation bilaterally AUSCULTATION: clear to auscultation bilaterally Cardio: COMMON NORMALS: no JVD, regular rhythm, S1 normal heart sound present, S2 normal heart sound present and No murmurs present (Cardio) RHYTHM: regular rhythm HEART SOUNDS: S1 normal heart sound present and S2 normal heart sound present GI: COMMON NORMALS: Normal to inspection, nondistended, normoactive bowel sounds present, Soft to palpation and non-tender PALPATION: Yes Soft to palpation Extremity: COMMON NORMALS: no joint enlargement and no pedal edema OTHER: Surgical dressing proximal anterior right thigh. Some swelling R thigh compared to L. Neuro: COMMON NORMALS: patient oriented x3 and moves all extremities S ENSORIUM/ORIENTATION: Yes alert Skin: COMMON NORMALS: no rashes or lesions noted GENERAL SKIN EXAM: no rashes or lesions noted Urinary Catheter Management: Newton: Cath Placed During This Visit: yes, but has since been removed by the nurse Reason for Continuing Indwelling Catheter: Decision to DC Catheter Urinary Catheter Date of Insertion: 08/29/25 Urinary Catheter Time of Insertion: 08:00 Date Urinary Catheter Removed: 08/29/25 Time Urinary Catheter Discontinued: 16:33 Data 08/30/25 09:00 08/30/25 04:37 A&P Assessment and plan 1. S/P total right hip arthroplasty: Did well postsurgically yesterday, and got up and ambulated quite a bit. However, overnight as well as this morning with significant pain in the right thigh. Some enlargement of the right eye compared to the left side. Also noted significant hemoglobin decrease from 13 down to 9.8. Will go ahead and assess with CT to assess for hematoma/bleeding into the thigh. Additionally assess venous duplex for DVT. Repeat blood counts obtained this morning and so far holding steady at 9.8. Discussed with nursing, welfare case worker. Increased requirement for pain medication, Dilaudid 0.5 mg every 3 hours has not been taking care of the pain together with hydrocodone 10 mg and methocarbamol. Increase Dilaudid to 1 mg every 3 hours as needed at this time. Discussed with her risks of opioid therapy. At current time no signs of AMS or respiratory depression. Naloxone is available as needed in case of respiratory depression. DC tramadol. Pending orthopedic reassessment. Encouraged incentive spirometer use. Ongoing post discharge planning and arrangements. Plan: Anemia: Acute blood loss anemia, hemoglobin down to 9.8 from 13. Suspect postoperative loss, however, also with pain and some swelling of the right thigh, further assess for hematoma. Anticoagulation has not been yet initiated. 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 Anticoagulation was stopped about one week prior to surgery; etiology of prior clot unknown. - If blood counts/hemoglobin are acceptable, probably restart blood thinner to resume treatment and for post-surgical venous thromboembolism prophylaxis. Hypertension : Known history; reports doing well with current home control. Resume home lisinopril. Chronic diarrhea : Patient reports chronic diarrhea; associated history of pancreatitis. History of pancreatitis : Hospitalized in February; opioids such as morphine have exacerbated symptoms in the past; hydromorphone tolerated. Anxiety: Continue Xanax as needed Allergic rhinitis: Continue fluticasone as needed Follow-up : Post-operative course and discharge planning. - Tentative plan to return home if recovery progresses as expected. PDMP PDMP Reviewed: Not Reviewed Attestations 2 Medical Necessity Statement*: Continue admission for postoperative assessment after right TERENCE with ongoing significant pain requiring IV opiates, further assessment for any additional etiologies, and assessment of postoperative anemia. and High MDM includes amount and/or complexity of data reviewed/ordered [ resulted lab(s)/test(s), ordered lab(s)/test(s) and other healthcare professional discussion] and described risk of complication, morbidity or mortality of management as documented Diagnoses S/P total right hip arthroplasty Z96.641
[2025-08-30] MEDS: ondansetron 2 mg/ML SDV 2 mL 4 MG IVP ×2 (15:51→20:11)
--- NOTE | 2025-08-30 16:54 | PM.PN ---
Subjective Subjective: Patient seen and examined today she has been slow to get up today as her pain has been increased and had minimal working with therapy. Internal medicine for any apparent healing ultrasound and CT of the right hip . Vitals/I&O/Wt Last Vital Signs Temp 99.1 F 08/30/25 16:04 Pulse 98 08/30/25 16:04 Resp 16 08/30/25 16:04 BP 111/69 08/30/25 16:04 Pulse Ox 91 08/30/25 16:04 O2 Del Method Room Air 08/30/25 16:04 O2 Flow Rate 2 08/29/25 12:18 08/30/25 08/30/25 08/30/25 06:59 14:59 22:59 Intake Total 870 / 3300 530 / 530 Balance 870 / 2050 530 / 530 Weight last 48 hrs Weight 168 lb Physical Exam Narrative: Right hip examination: Dressing on in place, clean dry and intact. No evidence of saturation. Patient has normal postoperative swelling and tenderness to palpation to the hip and. Left iliac wing incision and/dressings clean dry and intact. Compartments are soft compressible,'s calf soft and nontender. Sensations intact to light touch distally. Distal pulses are palpable. Patient is able to wiggle toes as well as plantarflex and dorsiflex ankle. Patient is able to perform straight leg raise. Urinary Catheter Management: Newton: Cath Placed During This Visit: yes, but has since been removed by the nurse Reason for Continuing Indwelling Catheter: Decision to DC Catheter Urinary Catheter Date of Insertion: 08/29/25 Urinary Catheter Time of Insertion: 08:00 Date Urinary Catheter Removed: 08/29/25 Time Urinary Catheter Discontinued: 16:33 Data 08/31/25 04:11 08/31/25 04:11 Xray Ortho: Radiologist's impression: Patient: Padmini Rothman Unit #: [id number] : 1970 Age/Sex: 54 / F ADM Date: 08/29/25 Loc: [facility] Room/Bed: [facility] Attending Dr: Narciso Siegel DO Ordering Provider/Ordering MD: Narciso Siegel Date of Service: 08/29/25 Procedure(s): XR hip RT 2-3V wo/w pel* [id number] Accession Number(s): [id number] Report Number: [id number] WS: [id number] Right hip, 2 views, AP pelvis, 08/29/2025 Clinical Data: post op TERENCE Comparison: Pelvis and right hip, 04/26/2025 Findings: The right hip arthroplasty is in good position. No periprosthetic fractures or loosening is seen. XR/XR hip RT 2-3V wo/w pel* [id number] Impression: Right hip arthroplasty. A&P Assessment and plan 1. S/P total right hip arthroplasty: Plan: Postop day 1 right total hip arthroplasty X-rays reviewed stable right total hip arthroplasty PT/OT Weight-bear as tolerated right lower extremity Ice elevate as needed for pain and swelling Change dressing as needed Pain control Hold on DVT prophylaxis continue with SCDs this patient had drop in hemoglobin prior to resuming [facility] Internal medicine on board for medical management?as ordered ultrasound right lower extremity and right hip CT scan given patient's pain and blood loss per the internal medicine department Case management for discharge planning Labs reviewed Resume regular diet Orthopedics will continue to follow Recommend additional night stay for pain control and progress with therapy prior to discharge Patient understands agrees to current plan. Questions answered. Will follow-up after CT scan of the right hip and the ultrasound to rule out blood clot. Patient at this point in time has been in increased pain and pain medication demands and slow progress with therapy today she would benefit from additional night stay talked about this in detail she understands agrees to current plan. Questions answered. PDMP PDMP Reviewed: Last Reviewed 08/31/25 13:16 EDT by Narciso Siegel DO Attestations Medical Necessity Statement*: Ongoing care status post right total hip arthroplasty drop in hemoglobin. Increased pain and decreased mobility with therapy Coding Level of Care Code Acute Code for Chg Fwd Diagnoses S/P total right hip arthroplasty Z96.641 Time Spent (min) 30
[2025-08-30] MEDS: HYDROmorphone 0.5 MG/0.5 ML INJ 1 MG IVP (20:11)
[2025-08-31] VITALS: BP 104/62; PULSE 102; RESP 16; TEMP 36.8; O2SAT 93
[2025-08-31] MEDS: HYDROcodone-acetaminophen 10-325 mg Tablet 1 TAB PO ×3 (02:22→11:23)
[2025-08-31 04:00] VITALS: BP 93/58; PULSE 93; RESP 16; TEMP 36.8; O2SAT 94
[2025-08-31 04:43] LABS: Hematocrit 27.7 % (36-47); Hemoglobin 8.90 g/dL (11.27-16.99); Mean Corpuscular HGB Conc 32.1 g/dL (30-55); Mean Corpuscular Hemoglobin 27.8 pg (27-33); Mean Corpuscular Volume 86.6 fl (85-98); Nucleated Red Blood Cells % 0 %; Platelet Count 215 10^3/cmm (157-399); Red Blood Count 3.20 10^6/uL (3.85-5.65); White Blood Count 10.91 10^3/uL (3.29-11.43)
[2025-08-31 05:06] LABS: Anion Gap 13.9 (5-19); Blood Urea Nitrogen 7 mg/dL (6-20); Calcium 9.1 mg/dL (8.5-10.5); Carbon Dioxide 27 mmol/L (22-29); Chloride 103 mmol/L (98-107); Creatinine Clr Calc Pharmacy 108.1770; Glucose 126 mg/dL (65-115); Osmolality Calculated 290 mOsm/kg (285-295); Potassium 3.9 mmol/L (3.5-5.1); Sodium 140 mmol/L (136-145)
[2025-08-31] MEDS: multivitamin therapeutic Tablet 1 TAB PO (06:20)
[2025-08-31] MEDS: calcium carb-vit d 600mg/400unit 1 Tablet 1 EACH PO (06:20)
[2025-08-31] MEDS: chlorhexidine gluconate 0.12% Btl 473 mL 30 ML MUCOUS MEM ×2 (06:22→11:24)
[2025-08-31] MEDS: mupirocin oint 22 gm 1 APPLIC NASAL (06:22)
[2025-08-31 06:32] VITALS: BP 99/64
[2025-08-31 08:00] VITALS: BP 92/52; PULSE 102; RESP 16; TEMP 36.8; O2SAT 95
--- NOTE | 2025-08-31 09:05 | P.PN_ITS ---
Subjective 2 Subjective: She had a much easier night last night. Did not require nearly as much pain medication. Today she is feeling much better. Worked with physical therapy. Vitals/I&O/Wt Last Vital Signs Temp 98.3 F 08/31/25 08:00 Pulse 102 H 08/31/25 08:00 Resp 16 08/31/25 08:00 BP 92/52 08/31/25 08:00 Pulse Ox 95 08/31/25 08:00 O2 Del Method Room Air 08/31/25 08:00 O2 Flow Rate 2 08/29/25 12:18 08/30/25 08/31/25 08/31/25 22:59 06:59 14:59 Intake Total 1240 / 1770 240 / 2009 240 / 240 Balance 1240 / 1770 240 2009 240 / 240 Weight last 48 hrs Weight 80.513 kg Physical Exam 2 Const: COMMON NORMALS: patient oriented x3 and alert GENERAL APPEARANCE: c ooperative ORIENTATION/CONSCIOUSNESS: Yes awake HENMT: COMMON NORMALS: oropharynx normal Neck/C-Spine: COMMON NORMALS: no JVD Resp: COMMON NORMALS: normal respiratory effort and clear to auscultation bilaterally AUSCULTATION: clear to auscultation bilaterally Cardio: COMMON NORMALS: no JVD, regular rhythm, S1 normal heart sound present, S2 normal heart sound present and No murmurs present (Cardio) RHYTHM: regular rhythm HEART SOUNDS: S1 normal heart sound present and S2 normal heart sound present GI: COMMON NORMALS: Normal to inspection, nondistended, normoactive bowel sounds present, Soft to palpation and non-tender PALPATION: Yes Soft to palpation Extremity: COMMON NORMALS: no joint enlargement and no pedal edema OTHER: Surgical dressing proximal anterior right thigh. Minimal bruising. Mild swelling compared to the left. Neuro: COMMON NORMALS: patient oriented x3 and moves all extremities S ENSORIUM/ORIENTATION: Yes alert Skin: COMMON NORMALS: no rashes or lesions noted GENERAL SKIN EXAM: no rashes or lesions noted Urinary Catheter Management: Newton: Cath Placed During This Visit: yes, but has since been removed by the nurse Reason for Continuing Indwelling Catheter: Decision to DC Catheter Urinary Catheter Date of Insertion: 08/29/25 Urinary Catheter Time of Insertion: 08:00 Date Urinary Catheter Removed: 08/29/25 Time Urinary Catheter Discontinued: 16:33 Data 08/31/25 04:11 08/31/25 04:11 A&P Assessment and plan 1. S/P total right hip arthroplasty: She did much better overnight in terms of pain. Reviewed vitals, CBC, BMP, right leg CT, venous duplex, orthopedic note. CT revealed possibly some blood products with fluid tracking distally along the lateral edge of the vastus lateralis and IT band, not unexpected postoperative is per discussion with orthopedic surgery. No large hematoma. Hemoglobin is discussed with her decrease from 13-9.8 yesterday, today further, milder decrease down to 8.9. Lisinopril was held yesterday with softer blood pressure, would hold off on antihypertensive for now. Anticoagulation can be resumed when deemed safe per orthopedic surgery given she does not have a large hematoma. She is otherwise doing much better. He is only 1 dose of IV Dilaudid since yesterday. Okay for discharge from hospitalist perspective with follow-up in office with primary provider for reassessment after surgery and reassessment of acute blood loss anemia. Encouraged incentive spirometer use. Ongoing post discharge planning and arrangements. Plan: Anemia: Acute blood loss anemia, hemoglobin down to 8.9 from 9.8 with postoperative loss and small amount of bleeding with noted small amount of fluid tracking with likely blood products in the right side not unexpected after surgery. Follow-up with primary provider for reassessment. 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 Discussed with her and her , no DVT. Resume anticoagulants once safe per orthopedics. Hypertension : Known history; reports doing well with current home control. Hold home lisinopril until follow-up with primary provider. Chronic diarrhea : Patient reports chronic diarrhea; associated history of pancreatitis. History of pancreatitis : Hospitalized in February; opioids such as morphine have exacerbated symptoms in the past; hydromorphone tolerated. Anxiety: Continue Xanax as needed Allergic rhinitis: Continue fluticasone as needed Follow-up : Post-operative course and discharge planning. - Tentative plan to return home if recovery progresses as expected. PDMP PDMP Reviewed: Not Reviewed Attestations 2 Medical Necessity Statement*: Continue postoperative care after right hip replacement with anticipated discharge home. and High MDM includes amount and/or complexity of data reviewed/ordered [ previous or external records, resulted lab(s)/test(s), ordered lab(s)/test(s) and other healthcare professional discussion] and described risk of complication, morbidity or mortality of management as documented Diagnoses S/P total right hip arthroplasty Z96.641
[2025-08-31 11:40] VITALS: BP 104/67; PULSE 97; RESP 18; TEMP 37; O2SAT 97
--- NOTE | 2025-08-31 12:19 | PM.DCS ---
Discharge Providers Date of Admission: 08/29/25 10:31 Date of Discharge: August 31, 2025 Attending Provider at Admission: Narciso Siegel DO Attending Provider at Discharge: Narciso Siegel DO Consults: Dr. Taylor?hospitalist Primary Care Provider: MOODY Mckinney Diagnoses at Discharge Discharge Diagnosis 1. 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 Once cleared by anesthesia for surgery subsequently was taken back to the operative suite underwent anesthesia per the anesthesia department and then underwent [right] total hip arthroplasty with Rashaun robotic assistance anterior approach without any complications. Patient was then subsequently taken back to PACU in stable condition recovering well. Once recovered, patient was then subsequently admitted to the floor postoperatively. Internal medicine was consulted for medical management assistance. Patient weightbearing as tolerated to the right lower extremity, anterior hip precautions. PT/OT. Pain control. DVT prophylaxis. Postoperative antibiotics. dressing was change as needed. Internal medicine was on board and appreciate their medical management and assistance. Patient will postop day 1 still has significant pain and decreased mobility with PT was determined she would be better to stay for an additional night she was worked up with a CT scan which confirmed normal postoperative surgical changes stable right total hip arthroplasty no significant fluid collection or hematoma appreciated. She also had a DVT study ultrasound which was negative for DVT. At this point in time she was treated for her pain control and responded well. She progressed well on her postop day 2 physical therapy. Pt was determined on postoperative day [ 2] the patient was stable for discharge from orthopedic as well as internal medicine standpoint. Patient's labs were monitored daily. Patient will receive appropriate pain medication as well as DVT prophylaxis postoperatively. Appropriate discharge instructions as well. Patient was then discharged in stable condition. Patient will discharge home. Pt will follow-up with Orthopedics in the office in 2 weeks. Patient understands and agrees with current plan. All questions answered. Understands there is any issues or concerns and contact the office. Physical Exam Narrative: Right hip examination: Dressing on in place, clean dry and intact. No evidence of saturation. Patient has normal postoperative swelling and tenderness to palpation to the hip and. Left iliac wing incision and/dressings clean dry and intact. Compartments are soft compressible,'s calf soft and nontender. Sensations intact to light touch distally. Distal pulses are palpable. Patient is able to wiggle toes as well as plantarflex and dorsiflex ankle. Patient is able to perform straight leg raise. Urinary Catheter Management: [place]: Cath Placed During This Visit: yes, but has since been removed by the nurse Reason for Continuing Indwelling Catheter: Decision to DC Catheter Urinary Catheter Date of Insertion: 08/29/25 Urinary Catheter Time of Insertion: 08:00 Date Urinary Catheter Removed: 08/29/25 Time Urinary Catheter Discontinued: 16:33 Discharge Data Studies Completed and Pending Completed Studies During Hospitalization Category Date Time Status CT femur RT wo con* [id number] Urgent Cat Scan 08/30/25 10:53 Completed XR hip RT 2-3V wo/w pel* [id number] Routine Exams 08/29/25 10:42 Completed XR hip RT 2-3V wo/w pel* [id number] Routine Exams 08/29/25 11:11 [place] [id number] Stat Ultrasound 08/29/25 07:05 [place] [id number] Urgent Ultrasound 08/30/25 10:54 Completed Pending at discharge Category Date Time Status Basic Metabolic Panel AM LABS Lab 09/01/25 04:00 Ordered Complete Blood Count w/Auto AM LABS Lab 09/01/25 04:00 Ordered Radiology Impressions Hip/Pelvis X-Ray 08/29/25 11:11 Impression: Right hip arthroplasty. Femur CT 08/30/25 10:53 IMPRESSION: 1. Right total hip arthroplasty without acute complications 2. Postsurgical changes within the soft tissue about the right hip and proximal thigh. 3. Myofascial fluid tracking distally along the lateral edge of the vastus lateral malleolus muscle and IT band. This may represent some blood products/myofascial hematoma given its slight hyperdensity. Laboratory Results WBC 10.91 10^3/uL (3.29-11.43) 08/31/25 04:11 RBC 3.20 10^6/uL (3.85-5.65) L 08/31/25 04:11 Hgb 8.90 g/dL (11.27-16.99) L 08/31/25 04:11 Hct 27.7 % (36-47) L 08/31/25 04:11 MCV 86.6 fl (85-98) 08/31/25 04:11 MCH 27.8 pg (27-33) 08/31/25 04:11 MCHC 32.1 g/dL (30-55) 08/31/25 04:11 RDW 13.2 % (12.1-15.1) 08/31/25 04:11 Plt Count 215 10^3/cmm (157-399) 08/31/25 04:11 MPV 10.5 fL (7.4-10.4) H 08/31/25 04:11 Neut % (Auto) 76.2 % 08/31/25 04:11 Lymph % (Auto) 13.0 % 08/31/25 04:11 [place] % (Auto) 9.6 % 08/31/25 04:11 Eos % (Auto) 0.4 % 08/31/25 04:11 Baso % (Auto) 0.4 % 08/31/25 04:11 Neut # (Auto) 8.32 10^3/uL (1.8-7.7) H 08/31/25 04:11 Lymph # (Auto) 1.4 10^3/uL (0.8-4.8) 08/31/25 04:11 [place] # (Auto) 1.1 10^3/uL (0.2-0.9) H 08/31/25 04:11 Eos # (Auto) 0.0 10^3/uL (0.0-0.8) 08/31/25 04:11 Baso # (Auto) 0.0 10^3/uL (0.0-0.1) 08/31/25 04:11 Nucleated RBC % (auto) 0 % 08/31/25 04:11 Nucleated RBCs # 0.0 /100WBC 08/31/25 04:11 Sodium 140 mmol/L (136-145) 08/31/25 04:11 Potassium 3.9 mmol/L (3.5-5.1) 08/31/25 04:11 Chloride 103 mmol/L (98-107) 08/31/25 04:11 Carbon Dioxide 27 mmol/L (22-29) 08/31/25 04:11 Anion Gap 13.9 (5-19) 08/31/25 04:11 BUN 7 mg/dL (6-20) 08/31/25 04:11 Creatinine 0.6 mg/dL (0.5-0.9) 08/31/25 04:11 GFR Calculation 103.8 mL/min (90-130) 08/31/25 04:11 Glucose 126 mg/dL (65-115) H 08/31/25 04:11 Calculated Osmolality 290 mOsm/kg (285-295) 08/31/25 04:11 Calcium 9.1 mg/dL (8.5-10.5) 08/31/25 04:11 Blood Type O Positive 08/29/25 06:10 Rho(D) Type Rh positive 08/29/25 06:10 Antibody Screen Negative 08/29/25 06:10 Vitals Last Vital Signs Temp 98.6 F 08/31/25 11:40 Pulse 97 08/31/25 11:40 Resp 18 08/31/25 11:40 BP 104/67 08/31/25 11:40 Pulse Ox 97 08/31/25 11:40 O2 Del Method Room Air 08/31/25 11:40 O2 Flow Rate 2 08/29/25 12:18 Discharge Plan Discharge Patient Disposition: Home Condition: Stable Prescriptions: New hydrocodone-acetaminophen 10-325 mg Tablet 1 tab PO Q4H PRN (Reason: Moderate Pain) 7 Days Qty: 42 0RF methocarbamol 500 mg tablet 500 mg PO TID PRN (Reason: muscle spasms/pain) 14 Days Qty: 42 0RF cefadroxil 500 mg capsule 500 mg PO BID 7 Days Qty: 14 0RF calcium carbonate-vitamin D3 [Calcium 600 + D(3)] 600 mg-10 mcg (400 unit) tablet 1 tab PO DAILY 30 Days Qty: 30 0RF Continued omeprazole 20 mg capsule,delayed release(DR/EC) 20 mg PO BID (DME) blood-glucose meter Misc See Rx Instructions .MEDSUPPLY Qty: 1 0RF Rx Instructions: Use as directed for checking blood sugar (DME) Blood Glucose Test Strip See Rx Instructions .MEDSUPPLY Qty: 200 12RF Rx Instructions: Use as directed with glucometer to check blood sugar (DME) lancets Misc See Rx Instructions .MEDSUPPLY Qty: 200 12RF Rx Instructions: Use as directed to prick skin for blood sugar checks fluticasone propionate 50 mcg/actuation spray,suspension 1 spray intranasal DAILY PRN (Reason: allergy symptoms) 30 Days Qty: 11 5RF Rx Instructions: administer into each nostril alprazolam 0.25 mg tablet 0.125 mg PO BID PRN (Reason: anxiety) Qty: 30 0RF Held Xarelto 10 mg tablet 10 mg PO QAM Qty: 90 1RF Hold Instructions: Resume on 09/01/25. lisinopril 40 mg tablet 40 mg PO QAM Qty: 90 1RF Hold Instructions: Resume on 09/14/25. Discontinued hydrocodone-acetaminophen 5-325 mg tablet 1 tab PO Q12H PRN (Reason: Pain) 30 Days Qty: 40 0RF Bobbin Cleaner Hand OK for DC: Hospitalist Discharge Order = DC NOW: Discharge Order (Routine); Ordered 08/31/25 Ordered By: Narciso Siegel Other Ambulatory Orders: DME: Walker (Order) Location: None Selected Ordered By: Narciso Siegel Physical Therapy Eval and Treat Outpatient (Order) Timeframe: 3 Days Facility: [facility] - Location: Physical Therapy [place] Ordered By: Narciso Siegel Referrals: CADE Bean FNP [Primary Care Provider, Family Practice] - 09/07/25 1:45 pm Narciso Siegel DO [Physician, Orthopedics] - 09/13/25 10:15 am Discharge Diet: Regular Discharge Activity: Limit activity as instructed, Use walker/crutches as instructed and As per PT/OT instructions Patient Instructions: Cefadroxil (By mouth), Hydrocodone/Acetaminophen (By mouth), Methocarbamol (By mouth), Acute Wound Care (DC), Total Hip Replacement (GEN), Opioid Safety, Post Anesthesia Care, Patient Portal & [place]amar Instructions Activity Restrictions/Additional Instructions: Orthopedic discharge instructions: Right hip--Mi Dressing--Keep dressing on and dry. disconnect battery pack when showering. Mi dressing will stay on until follow up appt in 2 weeks. The battery pack for the dressing will at 5-7 days. Battery pack can be removed and discarded once batteries . If dressing becomes greater than 50% saturated remove this and put a new peel and stick mi dressing on reconnect the tubing and pressed the orange button to restart the battery pack Patient should keep dressings clean dry and intact Okay to shower over dressings if they do become wet these should be removed and new dressings applied Left hip incision =keep incisions clean dry and intact, leave Silverlon bandage dressings on in place for 7 days after that may rinse incisions with warm soapy water pat dry and redress with a dry dressing Weight-bear as tolerated to operative lower extremity Anterior hip precautions as instructed by physical therapy (avoid crossing your leg or hyperextending your hip) Ice as needed for pain and swelling Take pain medication as prescribed Take antibiotic as prescribed for antibiotic infection prophylaxis Take antinausea medication as needed Supplement with Citracal vitamin D for bone health and healing Pain medication can cause constipation. take [id number] stool softeners and or MiraLAX. Take blood thinner as directed (xarelto)?hold Xarelto today and may restart tomorrow morning Recommend following up with primary provider in the next 3 to 5 days (by the end of the week) Follow-up in the orthopedic office in 2 weeks Contact the office for any questions or concerns Follow-up with your primary doctor for reassessment after right hip replacement surgery, reassessment of postoperative anemia. Hold lisinopril for now, monitor blood pressures at home twice daily, bring to appointment to consider timing of resumption of lisinopril possibly starting at a lower dose. Seek medical attention in case of any worsening or new concerning symptoms. Discharge Attestations Time Spent in Discharge Care*: greater than 30 min Status at Discharge: Cognitive status at discharge: cognitively intact, Behavioral status at discharge: cooperative, Quality Metrics Clinical Quality Measures [ No reported AMI, CVA or VTE this stay] Coding Level of Care Code Acute Code for Chg Fwd Diagnoses S/P total right hip arthroplasty Z96.641 Time Spent (min) 35
[2025-08-31 12:47] VITALS: BP 104/67; PULSE 97; RESP 18; TEMP 37; O2SAT 97
== END 2025-08-31 12:47 | disposition home or self-care (01) ==
LOC: MEDSURG 10:33
PROVIDERS: Internal Medicine; Physician Assistant; Admitting Provider Student in an Organized Health Care Education/Training Program; PCP Nurse Practitioner Family; Visit Provider Student in an Organized Health Care Education/Training Program
PROC: 8E0Y0CZ Robotic Assisted Procedure of Lower Extremity, Open Approach (ICD-10-PCS; CPT 27130; principal; 2025-08-29 07:00)
DX: M16.11 Unilateral primary osteoarthritis, right hip (principal); K21.9 Gastro-esophageal reflux disease without esophagitis; Z79.01 Long term (current) use of anticoagulants; I10 Essential (primary) hypertension; Z79.891 Long term (current) use of opiate analgesic; J44.9 Chronic obstructive pulmonary disease, unspecified; E16.2 Hypoglycemia, unspecified; F41.8 Other specified anxiety disorders; E78.2 Mixed hyperlipidemia; Z87.891 Personal history of nicotine dependence
CPT/HCPCS: 27130; 20985; 36415; 51702; 73502; 73700; 76000; 80048; 85018; 85025; 86850; 86900; 93970; 93971; 97116; 97161; 97167; 97530; C1713; C1776; G0378; J0131; J0690; J1100; J1171; J1885; J2250; J2405; J2704; J3010; J3373; J7030; J7120; J9999

== ENCOUNTER → 2025-09-07 14:40 | Outpatient (BNVA) | payer BC, MEDICAID, SELFPAY | PROVIDERS: PCP Nurse Practitioner Family; Visit Provider Nurse Practitioner Family | DX: D64.9 Anemia, unspecified (principal) | CPT/HCPCS: 80053; 82306; 85025 ==

== ENCOUNTER → 2025-09-13 09:49 | Outpatient (BNVA) | payer BC, MEDICAID, SELFPAY | PROVIDERS: PCP Nurse Practitioner Family; Visit Provider Physician Assistant | DX: Z98.890 Other specified postprocedural states (principal); Z96.641 Presence of right artificial hip joint | CPT/HCPCS: 73502 ==

== ENCOUNTER → 2025-09-21 08:14 | Outpatient (BNVA) | payer BC, MEDICAID, SELFPAY | PROVIDERS: PCP Nurse Practitioner Family; Visit Provider Nurse Practitioner Family | DX: I10 Essential (primary) hypertension (principal); D64.9 Anemia, unspecified; R79.89 Other specified abnormal findings of blood chemistry | CPT/HCPCS: 80503; 81003; 82728; 83550; 85025; 85651; 86140 ==

== ENCOUNTER 2025-09-22 15:22 | Outpatient (RCR) | payer BC, MEDICAID, SELFPAY | END 2025-09-23 23:59 | disposition home or self-care (01) | LOC: WPT 15:22 | PROVIDERS: Visit Provider Student in an Organized Health Care Education/Training Program | DX: Z47.1 Aftercare following joint replacement surgery (principal); Z96.651 Presence of right artificial knee joint | CPT/HCPCS: 97110; 97112; 97161; 97530 ==

== ENCOUNTER 2025-10-17 07:59 | Outpatient (RCR) | payer BC, MEDICAID, SELFPAY | END 2025-10-23 23:59 | disposition home or self-care (01) | LOC: WPT 07:59 | PROVIDERS: PCP Nurse Practitioner Family; Visit Provider Student in an Organized Health Care Education/Training Program | DX: Z47.1 Aftercare following joint replacement surgery (principal); Z96.641 Presence of right artificial hip joint | CPT/HCPCS: 97110; 97112; 97116; 97530 ==

== ENCOUNTER → 2025-10-17 09:42 | Outpatient (BNVA) | payer BC, SELFPAY | PROVIDERS: PCP Nurse Practitioner Family; Visit Provider Nurse Practitioner Family | DX: I10 Essential (primary) hypertension (principal); E78.2 Mixed hyperlipidemia; Z79.01 Long term (current) use of anticoagulants; D64.9 Anemia, unspecified; R60.9 Edema, unspecified | CPT/HCPCS: 80053; 80061; 81003; 82728; 83036; 83550; 84443; 85025 ==

== ENCOUNTER → 2025-10-26 07:44 | Outpatient (BNVA) | payer BC, MEDICAID, SELFPAY | PROVIDERS: PCP Nurse Practitioner Family; Visit Provider Physician Assistant | DX: Z98.890 Other specified postprocedural states (principal); G89.18 Other acute postprocedural pain; Z96.641 Presence of right artificial hip joint | CPT/HCPCS: 73502 ==

== ENCOUNTER 2025-10-27 10:21 | Outpatient (CLI) | payer BC, MEDICAID, SELFPAY ==
--- NOTE | 2025-10-27 10:45 | CT_ITS ---
WS: [id number] CT ABDOMEN AND PELVIS WITH CONTRAST HISTORY: I81 - Portal vein thrombosis TECHNIQUE: Imaging performed of the abdomen and pelvis with IV contrast. Single phase imaging of the abdomen. Coronal and sagittal reformats are submitted. All CT scans at [facility] use at least one of these dose optimization techniques: automated exposure control; mA and/or kV adjustment per patient size (includes targeted exams where dose is matched to clinical indication); or iterative reconstruction. IV CONTRAST: Omnipaque 350; 100 mL IV. Oral contrast: No DLP: 423.92 mGy.cm COMPARISON: 01/19/2025, 01/20/2025 Lower thorax: Lung bases are clear. Heart is normal size. Small hiatal hernia. Liver/biliary system: Liver is normal size. Reidentified is mild intrahepatic duct dilatation which has not significantly progressed. Mild improvement since 01/19/2025. Portal vein is patent. Areas of decreased attenuation within the liver centrally may be related to hepatic steatosis and areas of fatty sparing. Gallbladder: Prior cholecystectomy. Pancreas: Normal size pancreas and pancreatic duct. No adjacent inflammation. Spleen: Normal size spleen. No mass or infarct. Adrenal glands: Long-term stability 6 mm RIGHT adrenal nodule. LEFT adrenal gland is negative. Right kidney: Normal. Left kidney: Normal. Aorta: Normal. Lymphadenopathy: None. Free fluid: None. GI tract: Normal appearance of the stomach. No small bowel obstruction. No colitis or obstruction. Normal appendix. Abdominal wall: Unremarkable abdominal wall. No hernia. Pelvis: Prior hysterectomy. Well distended urinary bladder. No free fluid or adenopathy. Calcification in the LEFT adnexa measures 9.5 mm. Stable over several years and probably related to the ovary. Bones: Unremarkable. CT/CT abdomen pelvis w con* [id number] IMPRESSION: 1. No portal vein thrombosis. 2. Continued mild intrahepatic duct dilatation. No progression of the duct dil atation. 3. Prior cholecystectomy. 4. Stable RIGHT adrenal nodule. 5. No GI tract obstruction.
[2025-10-27] MEDS: iohexol 350 mg/mL 500 mL Btl (per mL) IV (11:09)
== END 2025-10-27 10:22 | disposition home or self-care (01) ==
LOC: RAD 10:23
PROVIDERS: PCP Nurse Practitioner Family; Visit Provider Nurse Practitioner Family
DX: I81 Portal vein thrombosis (principal); Z87.19 Personal history of other diseases of the digestive system
CPT/HCPCS: 74177

== ENCOUNTER 2025-11-15 08:00 | Outpatient (RCR) | payer BC, MEDICAID, SELFPAY | END 2025-11-23 23:59 | disposition home or self-care (01) | LOC: WPT 08:00 | PROVIDERS: PCP Nurse Practitioner Family; Visit Provider Student in an Organized Health Care Education/Training Program | DX: Z47.1 Aftercare following joint replacement surgery (principal); Z96.641 Presence of right artificial hip joint | CPT/HCPCS: 97110; 97112; 97530 ==

== ENCOUNTER → 2025-11-22 08:02 | Outpatient (BNVA) | payer BC, MEDICAID, SELFPAY | PROVIDERS: PCP Nurse Practitioner Family; Visit Provider Orthopaedic Surgery | DX: M54.50 Low back pain, unspecified (principal); M79.604 Pain in right leg | CPT/HCPCS: 72110 ==